=== PATIENT | male | born 1945 | race Caucasian/White ===

== ENCOUNTER 2020-01-31 04:15 | Inpatient (IN) | payer MEDICARE, OTHER ==
[~2020-01-31] VITALS: Ht 180.3 cm; Wt 140.2 kg
[2020-01-31] VITALS (11 sets, daily range): BP systolic 100–145; BP diastolic 53–76
[~2020-01-31 04:15] MED LIST: ACETAMINOPHEN-1 EAC1 PO; ACETAMINOPHEN325 M1 PO; ACYCLOVIR 400400 M1 PO; ADVAIR 500-501 EACH INH; AF CAPSICUM 0.060 GM TP; ALBUTEROL INH INH; ALBUTEROL PO; ARTIFICIAL TEA1 EACH INTRAOCULR; ATIVAN1 MG PO; ATIVAN2 MG PO; ATROVENT30 ML INH; AVELOX 400 MG400 MG PO; B-COMPLEX-VITA1 EACH PO; BENADRYL25 MG PO; BENZONATATE100 MG PO; CLARITIN10 M2 PO; CLOTRIMAZOLE 1%30 M1 TOP; COZAAR100 MG PO; CYCLOBENZAPRINE; DEPO-TESTO100 MG/1 M IM; DIABETA; EPIPEN 2-P0.3 MG/0.3 SUBQ; EYE ITCH RELIEF5 ML OP; FISH OIL 1,001000 MG PO; FLEXERIL PO; FLONASE 0.05%50 MCG INH; FLUZONE 2045 MCG/011; GLUCOPHAGE1000 MG; GLUCOPHAGE1000 MG PO; GLYBURIDE 5 MG T5 M1 PO; HYDROCODON-ACE1 EACH PO; IBUPROFEN 800800 M1; INSULIN; KEFLEX500 M1 PO; LANTUS SUBQ; LEVAQUIN 500 M500 M2 PO; LEVAQUIN 500 M500 M3 PO; LIDODERM TD; LOPID600 MG PO; LOVASTAT40 PO; MEDROL DOSPAK21 TAB PO; MEDROLDOSEPACK PO; METHOCARBAMOL500 M1 PO; METOCLOPRAMIDE10 MG PO; METRONIDAZOLE45 G1 TOP; NEURONTIN 300300 M1 PO; NIASPAN750 MG PO; NOVOLOG100 UNIT/1 SUBQ; OMEPRAZOLE20 M2 PO; PEPCID AC20 M1 PO; PLAVIX 75 MG TA75 MG PO; PNEUMOVAX25 MCG/0.5; PRAVACHOL40 MG PO; PREDNISONE 10 M10 M1 PO; PROAIR HFA8.5 GM INH; RANITIDINE; RANITIDINE 150150 MG PO; ROBITUSSIN100 MG/5 M; SEE INSTRUCTIONS; SELENIUM SULFIDE TOP; SELSUN BLUE 1%118 ML; SEROQUEL 100 M100 M1 PO; SERTRALINE HCL100 MG PO; SINGULAIR 10 MG10 M1 PO; SYMBICORT; Symbicort INH; TESSALON PERLE100 MG PO; TRAZODONE 150150 M1 PO; ULTRAM 50MG TAB50 MG PO; VITAMIN D1000 UNI1 PO; VITAMIN D1000 UNI2 PO; ZANTAC 150MG T150 MG PO
[2020-01-31 04:53] LABS: HEMATOCRIT 35.1 % (42.0-52.0); MCH 28.7 pg (26.0-34.0); MCHC 34.1 g/dL (28.0-37.0); MPV 8.5 fl. (7.2-11.1); NUCLEATED RBCS 0 /100WBC; PLATELET COUNT* 256 thou/uL (150-400); RBC 4.18 mil/uL (4.50-6.00); RDW-CV 15.5 % (10.5-14.5); WBC 13.1 thou/uL (4.0-11.0)
[2020-01-31 05:04] LABS: APTT 22.6 Seconds (25.0-31.3); INR 1.1; PROTIME 11.7 Seconds (9.20-11.50)
--- NOTE | 2020-01-31 05:05 | NUR ---
PT DOES NOT KNOW WHAT MEDICATIONS HE TAKES ON A DAILY BASIS. I ATTEMPTED TO CALL BECAUSE PT STATES THAT SHE KNOWS WHAT MEDICATIONS HE TAKES. 'S PHONE STATES THAT SHE IS NOT ACCEPTING CALLS AT THIS TIME. : ISAIAS NARANJO [phone]
[2020-01-31 05:18] LABS: BE 1.3 mmol/L (-2 to +3); PCO2 33.5 mmHg (35.0-45.0); PO2 98.2 mmHg (75.0-100.0); pH 7.479 (7.340-7.450)
[2020-01-31 05:27] LABS: NT-PRO BRAIN NAT PEPTIDE 554 pg/mL (<300); TROPONIN-I LEVEL <0.06 ng/mL (<0.06)
[2020-01-31 06:03] LABS: ABSOLUTE LYMPHOCYTES 1.8 thou/uL (0.8-5.3); ABSOLUTE MONOCYTES 0.5 thou/uL (0.0-1.2); ABSOLUTE NEUTROPHILS 10.7 thou/uL (1.6-8.1); ANISOCYTOSIS 1+; MYELOCYTES 5 %; PLATELET ESTIMATE ADEQUATE; POIKILOCYTOSIS 1+
--- NOTE | 2020-01-31 13:39 | EKG ---
[place] [address] ELECTROCARDIOGRAM REPORT Name: STEPHANIE NARANJO Room: [address] ADM IN .R.#: [id number] Admission: 01/31/20 Attend Phys: Barry Napier, Discharge: Date of : 47 Date of Service: 01/31/20 0418 Report #: [id number] THIS REPORT FOR: //name// [facility] ED Test Date: 2020-01-31 Test Time: 04:18:15 Pat Name: STEPHANIE NARANJO Department: Room: [address] Gender: M Lamination Technician: JESSICA : 1945 Requested By: Barry Napier Order Number: [id number] Barber MD: Jason Mora Measurements Intervals [place] Rate: 119 P: 37 OR: 137 QRS: 54 QRSD: 82 T: QT: 404 QTc: 569 Interpretive Statements Sinus tachycardia Probable left atrial enlargement Nonspecific T abnrm, anterolateral leads Prolonged QT interval Baseline wander in lead(s) V1,V3,V4,V6 Compared to ECG 09/07/2013 15:40:00 Prolonged QT interval now present Sinus rhythm no longer present Electronically Signed On 01-31-2020 13:38:47 CDT by Jason Mora [email or web address] <ELECTRONICALLY SIGNED> By: Jason Mora MD, [facility] 01/31/20 1338 0418 Jason Mora MD, [facility] /EPI
--- NOTE | 2020-01-31 18:02 | NUR ---
pt remains on nonrebreather at 50% or 6L tolerating well. pt is insistant on eating although is an asipration risk do o soa and having pneumonia x1 week ago no fevers or shivering
--- NOTE | 2020-01-31 22:00 | NUR ---
PATIENT INCREASINGLY ANXIOUS. TAKES CPAP OFF, LOOKS AT MONITOR AND GETS MORE ANXIOUS OF 02. NOW PLACED ON NON REBREATHER. PROVIDER NOTIFIED, ORDERS RECEIVED. WILL CONTINUE MONITORING.
[2020-01-31 22:55] LABS: BE -0.7 mmol/L (-2 to +3); PCO2 33.6 mmHg (35.0-45.0); pH 7.447 (7.340-7.450)
[2020-01-31 22:57] LABS: PO2 252.4 mmHg (75.0-100.0)
[2020-02-01] VITALS (65 sets, daily range): BP systolic 72–160; BP diastolic 35–138
[2020-02-01 04:43] LABS: INR 1.2
[2020-02-01 05:08] LABS: pH 7.431 (7.340-7.450)
[2020-02-01 05:09] LABS: BE 0.1 mmol/L (-2 to +3); PO2 75.3 mmHg (75.0-100.0)
[2020-02-01 05:10] LABS: ALBUMIN 2.5 g/dL (3.4-5.0); CALCIUM 8.4 mg/dL (8.5-10.1); POTASSIUM 3.9 mmol/L (3.5-5.1); TOTAL BILIRUBIN 0.3 mg/dL (<0.1-1.0); TOTAL PROTEIN 6.8 g/dL (6.4-8.2)
[2020-02-01 05:29] LABS: TROPONIN-I LEVEL 4.37 ng/mL (<0.06)
--- NOTE | 2020-02-01 06:52 | NUR ---
PATIENT'S WORK OF BREATHING INCREASING THROUGH THE NIGHT. BREATHING 40s-50s ON BIPAP AND PRECEDEX GTT, AND SLEEPING. PT INTUBATED AROUND 0630 THIS AM PER PULMONARY. TEMP MAX 102.3F. PT INCREASINGLY CONFUSED THE NIGHT WENT BY. REMAINS OF PRECEDEX GTT AT 1MCG/KG/HR. PT IN RESTRAINTS. UPDATED ON STATUS.
--- NOTE | 2020-02-01 11:00 | NUR ---
CENTRAL LINE PLACED, RT IJ TRIPLE LUMEN AT THE BEDSIDE BY DR BAL. OG INSERTED AND SECURED AT 65CMS AT THE LIP. PLACEMENTS CONFIRMED BY XRAY.
--- NOTE | 2020-02-01 18:34 | NUR ---
VENT SUPPORT CONTD, SETTINGS UNCHANGED. SEDATED WITH PRECEDEX AND PROPOFOL. PRESSOR SUPPORT WITH LEVOPHED, TITRATED DOWN TO 3 MCG/MIN. LR AT 50 MLS/HR. LOW GRADE FEVER PRESENT, FAN APPLIED. TUBE FEEDINGS STARTED WITH GLUCERNA 1.2, CURRENTLY AT 20 MLS/HR, WATER BOLUS 200 MLS Q6H. Q2 TURNS AND ORAL CARE GIVEN. UPDATED OVER THE PHONE.
[2020-02-02] VITALS (51 sets, daily range): BP systolic 93–131; BP diastolic 46–64
[2020-02-02 04:47] LABS: BE 2.2 mmol/L (-2 to +3); PCO2 39.8 mmHg (35.0-45.0); PO2 88.3 mmHg (75.0-100.0); pH 7.441 (7.340-7.450)
[2020-02-02 05:05] LABS: ABSOLUTE MONOCYTES 0.4 thou/uL (0.0-1.2); ABSOLUTE NEUTROPHILS 9.4 thou/uL (1.6-8.1); BASOPHILS 0.2 %; EOSINOPHILS 0.2 %; HEMATOCRIT 33.2 % (42.0-52.0); HEMOGLOBIN 11.3 gm/dL (14.0-18.0); LYMPHOCYTES 9.6 %; MCH 28.8 pg (26.0-34.0); MCHC 34.1 g/dL (28.0-37.0); MCV 84.5 fL (80.0-100.0); MPV 8.6 fl. (7.2-11.1); NUCLEATED RBCS 0 /100WBC; PLATELET COUNT* 198 thou/uL (150-400); RBC 3.94 mil/uL (4.50-6.00); RDW-CV 15.7 % (10.5-14.5)
[2020-02-02 05:16] LABS: ANION GAP 9 mmol/L (7-16); BUN 39 mg/dL (7-18); CALCIUM 7.7 mg/dL (8.5-10.1); CHLORIDE 102 mmol/L (98-107); CHOLESTEROL 109 mg/dL (<200); CO2 28 mmol/L (21-32); CREATININE 1.9 mg/dL (0.6-1.3); GLUCOSE 253 mg/dL (70-99); HDL CHOLESTEROL 20 mg/dL (>40); LDL CHOLESTEROL 57 mg/dL (<100); POTASSIUM 4.1 mmol/L (3.5-5.1); SODIUM 139 mmol/L (136-145); TC:HDL 5.5 Ratio (Not establshd); TRIGLYCERIDE 160 mg/dL (<150); VLDL 32 mg/dL (<40)
[2020-02-02 05:18] LABS: ALBUMIN 2.1 g/dL (3.4-5.0); CALCIUM 7.8 mg/dL (8.5-10.1); CREATININE 1.9 mg/dL (0.6-1.3); POTASSIUM 4.1 mmol/L (3.5-5.1); TOTAL BILIRUBIN 0.4 mg/dL (<0.1-1.0)
[2020-02-02 05:23] LABS: SERUM ASSESSMENT Clear
[2020-02-02 05:24] LABS: TROPONIN-I LEVEL 0.86 ng/mL (<0.06)
--- NOTE | 2020-02-02 07:46 | NUR ---
ASSUMED PATIENT CARE AT 1900. ASSESSMENTS COMPLETED CHARTED. CARDIAC MONITORING IN PLACE. FALL PRECAUTIONS IN PLACE FOR PATIENT SAFETY. BED LOCKED AND IN LOWEST POSITION. Q2 TURNS FOR COMFORT AND SKIN INTEGRITY.
--- NOTE | 2020-02-02 08:27 | CON ---
[address] [address] CONSULTATION Name: STEPHANIE NARANJO Room: [address] IN .R.#: [id number] Admission: 01/31/20 Attend Phys: Barry Napier MD Discharge: Date of : 47 Report #: [id number] THIS REPORT FOR: //name// cc: James Estrada MD, Anthony MD ~ THIS REPORT FOR: //name// CC: Barry Estrada DATE OF SERVICE: 02/01/2020 INFECTIOUS DISEASE CONSULTATION ATTENDING PHYSICIAN: Mike Dugan DO REASON FOR EVALUATION: Pneumonitis, positive COVID testing. HISTORY OF PRESENT ILLNESS: Chart reviewed, the patient examined. This is a 74-year-old gentleman with known history of COPD, who was hospitalized in other facility up until . He was diagnosed heavily with pneumonia. It is notable that he had a negative COVID testing there. He woke up with onset of rigors. Temperature was noted to be 103, progressive dyspnea. He was placed on BiPAP en route with mixed results, subsequently developed with a nonrebreather. He ultimately required emergent intubation. He is now on mechanical ventilatory support. A repeat COVID testing was positive. He is requiring some pressor support due to hemodynamic instability as well. He continues to have low-grade temperature elevation. ALLERGIES: MEPERIDINE, NONSTEROIDALS, PENICILLINS, AMINOGLYCOSIDES, PEANUTS, HYDROCODONE, ASPIRIN. CURRENT MEDICATIONS: Include montelukast, losartan, sertraline, norepinephrine, methylprednisolone, trazodone, dexmedetomidine, albuterol, tramadol, quetiapine, atorvastatin, gemfibrozil, gabapentin, insulin, budesonide, metformin, famotidine. PAST MEDICAL HISTORY: As described above, COPD, history of gastroparesis, hypertension, peripheral neuropathy, arthritis, PTSD, history of oral tumor, obstructive sleep apnea, diabetes mellitus type 2. SOCIAL HISTORY: Nonsmoker, no ethanol, no illicit drug use. FAMILY HISTORY: Noncontributory. REVIEW OF SYSTEMS: [place] [address] CONSULTATION Name: STEPHANIE NARANJO Room: [address]#: [id number] Admission: 01/31/20 Attend Phys: Barry Napier MD Discharge: Date of : 47 Report #: [id number] PHYSICAL EXAMINATION: GENERAL: He is supine. He is maintained on mechanical ventilatory support via an endotracheal tube. He is sedated, obese, appears to be reasonably well nourished. VITAL SIGNS: Temperature 100, pulse 98, respirations 29, blood pressure 120/68. SKIN: Warm, dry, no rashes. HEENT: Neck is supple. LUNGS: Few scattered coarse breath sounds. HEART: Regular. Borderline tachycardic. I do not appreciate murmur. ABDOMEN: Obese. There are no overt peritoneal signs. I do not believe there is significant tenderness. GENITOURINARY AND RECTAL: Deferred. LABORATORY DATA: Chest x-ray: Bilateral diffuse pulmonary opacities compatible with diffuse pneumonitis. A coronavirus was again confirmed positive. Ferritin elevated at 403. LDH 283. CPK 151. Troponin 4.37. Electrolytes: Sodium 141, potassium 3.9, chloride 104, bicarbonate is 28, anion gap of 9, BUN and creatinine 32 and 2.0, glucose of 68. AST of 22, ALT of 28, total protein 68 and albumin of 2.5. Estimated GFR of 33. ABG: A pH 7.431, pCO2 of 37, pO2 of 75.3, FiO2 of 45%. CBC on admission, white count of 13.1, H and H 12.0 35.1, platelets of 256. Today, a total lymphocyte count of 1800. Lactic acid 1.6. ASSESSMENT AND PLAN: Bilateral pneumonitis. The patient tests positive for COVID. We will talk to the pharmacy, initiate therapy with remdesivir. I will be worried about this sort of approach ____ clinical course may have a secondary complication like bacterial pneumonitis. We will start empiric antimicrobial therapy covered with likely be nosocomial pathogens. He is critically ill at this point. We will discuss with Dr. Dugan ____ monitoring. Wean as allowed. <ELECTRONICALLY SIGNED> By: Ariel Phoenix MD 02/02/20 0827 0916 [id number] Phoenix MD /nt
--- NOTE | 2020-02-02 09:53 | NUR ---
ROUND ON PT WITH DR ALEMAN VIA [facility].
--- NOTE | 2020-02-02 13:45 | CON ---
[address] [address] CONSULTATION Name: STEPHANIE NARANJO Room: [address] IN .R.#: [id number] Admission: 01/31/20 Attend Phys: Barry Napier MD Discharge: Date of : 47 Report #: [id number] THIS REPORT FOR: //name// cc: James Estrada MD, Anthony MD ~ THIS REPORT FOR: //name// CC: Barry Estrada DATE OF SERVICE: 02/01/2020 CARDIOLOGY CONSULTATION HISTORY OF PRESENT ILLNESS: The patient is a 74-year-old white male whom I was asked to see in hospital today because of shortness of breath. The patient is currently intubated. There are no family members available. The patient apparently was brought to the hospital yesterday morning with shortness of breath. He apparently was just discharged from [facility] 2 days ago after being treated for pneumonia. The patient was on BiPAP. He eventually had to be intubated. He was noted to be febrile. His simms test was positive. He was noted to have elevated troponin. I have asked to see him for further evaluation and treatment. PAST MEDICAL AND SURGICAL HISTORY: Significant for shoulder surgery. He has a TENS unit for chronic back pain. He has had right knee replacement. MEDICATIONS: From [facility] included Symbicort inhaler, Neurontin, Lopid, lovastatin, niacin, Seroquel, insulin, tramadol, trazodone, losartan, metformin, insulin. ALLERGIES: HE HAS AND ALLERGY TO AMINOGLYCOSIDES, ASPIRIN. SOCIAL HISTORY: He has a previous history of tobacco use. REVIEW OF SYSTEMS: There is no history of stroke, liver disease, kidney disease, cancer, chronic skin condition. PHYSICAL EXAMINATION: GENERAL: Revealed a morbidly obese elderly male, lying in bed. He was on a ventilator. He was sedated. VITAL SIGNS: He had a blood pressure of 100/60, pulse is 90, he is on Levophed infusion, temperature is 100. HEENT: Anicteric. Mucous membranes moist. NECK: Veins are difficult to assess due to obesity. CHEST: [place] [address] CONSULTATION Name: STEPHANIE NARANJO Room: [address]#: [id number] Admission: 01/31/20 Attend Phys: Barry Napier MD Discharge: Date of : 47 Report #: [id number] CARDIAC: Regular rate and rhythm. ABDOMEN: Obese. EXTREMITIES: Had trace edema. SKIN: Cool and dry. NEUROLOGIC: Nonfocal. DIAGNOSTIC WORKUP: So far; ECG shows a sinus rhythm, nonspecific T-wave changes. His workup in the Emergency Room yesterday; chest x-ray showed normal heart size, mild pulmonary edema. LABORATORY DATA: Sodium 141, BUN 32, creatinine 2.0, magnesium is only 1.6. Troponins are elevated at 4.37. BNP 8748. His white blood cell count is 13.1, hematocrit is 35.1. IMPRESSION AND RECOMMENDATIONS: 1. Acute respiratory distress. Possible pulmonary edema. Possible pneumonia from coronavirus. The patient is currently intubated. 2. Pulmonary edema. I would give Lasix. The patient recently was admitted to [facility]. I would attempt to obtain those records. 3. Diabetes. 4. Hypertension. The patient is on an ARB. 5. Chronic kidney disease. 6. Morbid obesity. 7. Hyperlipidemia. The patient is on a statin drug. <ELECTRONICALLY SIGNED> By: Jason Mora MD, FACC 02/02/20 1345 1006 [id number] Mora MD, FACC /nt
--- NOTE | 2020-02-02 18:14 | NUR ---
PT CONTINUES ON VENT AND PEEP INCREASED TO 8. WAS ABLE TO WEAN PT OFF OF LEVOPHED. PT DIURESED 4L CLEAR YELLOW URINE. WILL CONTINUE TO ASSESS.
[2020-02-02 18:21] LABS: ALBUMIN 2.1 g/dL (3.4-5.0); CREATININE 1.9 mg/dL (0.6-1.3); POTASSIUM 4.3 mmol/L (3.5-5.1); TOTAL BILIRUBIN 0.3 mg/dL (<0.1-1.0); TOTAL PROTEIN 6.2 g/dL (6.4-8.2)
[2020-02-03] VITALS (51 sets, daily range): BP systolic 92–131; BP diastolic 50–66
[2020-02-03 04:27] LABS: BE 3.2 mmol/L (-2 to +3); PCO2 40.9 mmHg (35.0-45.0); pH 7.446 (7.340-7.450)
[2020-02-03 05:17] LABS: ABSOLUTE LYMPHOCYTES 0.9 thou/uL (0.8-5.3); ABSOLUTE MONOCYTES 0.2 thou/uL (0.0-1.2); ABSOLUTE NEUTROPHILS 4.7 thou/uL (1.6-8.1); BASOPHILS 0.4 %; EOSINOPHILS 0.4 %; HEMATOCRIT 33.4 % (42.0-52.0); HEMOGLOBIN 11.3 gm/dL (14.0-18.0); LYMPHOCYTES 15.3 %; MCH 28.5 pg (26.0-34.0); MCHC 33.7 g/dL (28.0-37.0); MCV 84.6 fL (80.0-100.0); MONOCYTES 3.7 %; MPV 8.6 fl. (7.2-11.1); NUCLEATED RBCS 0 /100WBC; PLATELET COUNT* 175 thou/uL (150-400); POLYS 80.2 %; RBC 3.95 mil/uL (4.50-6.00); RDW-CV 16.2 % (10.5-14.5); WBC 5.9 thou/uL (4.0-11.0)
[2020-02-03 05:52] LABS: INR 1.1; PROTIME 11.1 Seconds (9.20-11.50)
[2020-02-03 06:01] LABS: TROPONIN-I LEVEL 0.4 ng/mL (<0.06)
[2020-02-03 06:05] LABS: ALBUMIN 2.1 g/dL (3.4-5.0); CALCIUM 8.1 mg/dL (8.5-10.1); CREATININE 1.6 mg/dL (0.6-1.3); POTASSIUM 4.1 mmol/L (3.5-5.1); TOTAL BILIRUBIN 0.3 mg/dL (<0.1-1.0); TOTAL PROTEIN 6.2 g/dL (6.4-8.2)
--- NOTE | 2020-02-03 14:49 | NUR ---
ICU rounds: Pt on vent, FIO@ 100%. Covid positive. ID and pulm following. Pt recently dc from [place] on 01/28, admitted here on 01/30. Pt was covid negative as of 01/28. CM spoke with via phone. states that she was just tested for covid and is under quarantine, awaiting results. Pt is normally independent, assist with some ADLs. Pt has a walker but its too big to use in the home, so Pt does not use any DME in the home, but uses a cane or walking stick when outside. Pt wears home o2 at [facility] at 3L. Pt has a trilogy and Inogen, [facility]. Hx of [facility]. Hx of skilled at [facility], [facility] and [facility]. states that if Pt needs skilled at dc, her preference would be [facility], TERE informed that d/t Pt's positive covid results, we may have a more difficult time placing Pt for skilled if needed. CM following.
--- NOTE | 2020-02-03 15:36 | EKG ---
[place] [address] ELECTROCARDIOGRAM REPORT Name: STEPHANIE NARANJO Room: [address] IN M.R.#: [id number] Admission: 01/31/20 Attend Phys: aBrry Napier, Discharge: Date of : 47 Date of Service: 02/02/20 0629 Report #: [id number] THIS REPORT FOR: //name// [facility] Test Date: 2020-02-02 Test Time: 06:29:30 Pat Name: STEPHANIE NARANJO Department: Room: [address] Gender: M Residential Living Assistant: MS : 1945 Requested By: Jason Mora Order Number: [id number] Barber MD: Jj Sams Measurements Intervals [place] Rate: 62 P: 68 DE: 187 QRS: 70 QRSD: 101 T: 94 QT: 495 QTc: 503 Interpretive Statements Sinus rhythm Low voltage, precordial leads Nonspecific T abnrm, anterolateral leads Prolonged QT interval Compared to ECG 01/31/2020 04:18:15 Low QRS voltage now present Sinus tachycardia no longer present Electronically Signed On 02-03-2020 15:36:05 CDT by Jj Sams [email or web address] <ELECTRONICALLY SIGNED> By: Jj Sams MD, [facility] 02/03/20 1536 0629 0629 Jj Sams MD, [facility] /EPI
--- NOTE | 2020-02-03 15:42 | EKG ---
[place] [address] ELECTROCARDIOGRAM REPORT Name: STEPHANIE NARANJO Room: [address] IN M.R.#: [id number] Admission: 01/31/20 Attend Phys: Barry Napier, Discharge: Date of : 47 Date of Service: 02/03/20 1001 Report #: [id number] THIS REPORT FOR: //name// [facility] Test Date: 2020-02-03 Test Time: 10:01:29 Pat Name: STEPHANIE NARANJO Department: Room: [address] Gender: M Body Shop Technician: [id number] : 1945 Requested By: Jason Mora Order Number: [id number] Barber MD: Jj Sams Measurements Intervals [place] Rate: 66 P: 49 [place]: 176 QRS: 31 QRSD: 97 T: 84 QT: 517 QTc: 542 Interpretive Statements Sinus rhythm Low voltage, precordial leads Nonspecific T abnrm, anterolateral leads Prolonged QT interval Compared to ECG 01/31/2020 04:18:15 Low QRS voltage now present Sinus tachycardia no longer present Electronically Signed On 02-03-2020 15:41:14 CDT by Jj Sams [email or web address] <ELECTRONICALLY SIGNED> By: Jj Sams MD, FAC 02/03/20 1541 1001 1001 Jj Sams MD, [facility] /EPI
[2020-02-03 16:27] LABS: CALCIUM 8.4 mg/dL (8.5-10.1); CREATININE 1.8 mg/dL (0.6-1.3); POTASSIUM 4.6 mmol/L (3.5-5.1)
--- NOTE | 2020-02-03 19:55 | NUR ---
VENT SETTINGS CHANGED PER DR DELACRUZ, SEDATION CHANGED TO FENTANYL AND VERSED FOR VENT EFFICACY. TOLERTING GLUCERNA AT 40 MLS/HR. INSULIN DRIP STARTED PER PROTOCOL.
[2020-02-04] VITALS (29 sets, daily range): BP systolic 99–175; BP diastolic 41–78
[2020-02-04 05:19] LABS: HEMATOCRIT 35.3 % (42.0-52.0); HEMOGLOBIN 11.7 gm/dL (14.0-18.0); MCH 28.3 pg (26.0-34.0); MCHC 33.3 g/dL (28.0-37.0); MCV 85.1 fL (80.0-100.0); MPV 8.6 fl. (7.2-11.1); RBC 4.15 mil/uL (4.50-6.00); RDW-CV 16.2 % (10.5-14.5); WBC 4.7 thou/uL (4.0-11.0)
[2020-02-04 05:40] LABS: PREALBUMIN 23.7 mg/dL (18.0-35.7)
[2020-02-04 05:46] LABS: ALBUMIN 2.2 g/dL (3.4-5.0); CALCIUM 8.4 mg/dL (8.5-10.1); CREATININE 1.7 mg/dL (0.6-1.3); MAGNESIUM 2.1 mg/dL (1.8-2.4); POTASSIUM 4.1 mmol/L (3.5-5.1); TOTAL BILIRUBIN 0.2 mg/dL (<0.1-1.0); TOTAL PROTEIN 6.4 g/dL (6.4-8.2)
[2020-02-04 05:52] LABS: HEMATOCRIT 35.3 % (42.0-52.0); HEMOGLOBIN 11.8 gm/dL (14.0-18.0); MCH 28.4 pg (26.0-34.0); MCHC 33.4 g/dL (28.0-37.0); MPV 8.8 fl. (7.2-11.1); NUCLEATED RBCS 0 /100WBC; PLATELET COUNT* 166 thou/uL (150-400); RBC 4.15 mil/uL (4.50-6.00); RDW-CV 16.1 % (10.5-14.5); WBC 4.7 thou/uL (4.0-11.0)
[2020-02-04 06:33] LABS: ABSOLUTE LYMPHOCYTES 0.1 thou/uL (0.8-5.3); ABSOLUTE MONOCYTES 0.3 thou/uL (0.0-1.2); ABSOLUTE NEUTROPHILS 4.3 thou/uL (1.6-8.1); ANISOCYTOSIS 1+; PLATELET ESTIMATE ADEQUATE; POIKILOCYTOSIS 1+
--- NOTE | 2020-02-04 06:47 | NUR ---
ASSUMED CARE AT 1900H, ON VENT AT 100% PEEP OF 15 WITH SEDATION OF VERSED 10MG/HR AND FENTANYL 150MICS/HR AND TOLERATED. SEEN ON BED WELL SEDATED AND SOMETIMES OPENING EYES VERBAL AND LOCALIZE PAIN. ON GLUCERNA CONTINOUS FEEDING AND TOLERATED. NO DISTRESS NOTED. INSULIN DRIP AND TITRATED, NOW ON 17.5IU/HR AND LATEST BS 96. ART LINE INSERTED LAST NIGHT NO COMPLICATION. CONTINUE MONITORING AND TOWARD GOALS. UPDATE GIVEN TO .
[2020-02-04 08:38] LABS: BE 2.7 mmol/L (-2 to +3); PCO2 45.7 mmHg (35.0-45.0); PO2 95.5 mmHg (75.0-100.0); pH 7.404 (7.340-7.450)
--- NOTE | 2020-02-04 12:20 | NUR ---
ICU rounds: Covid postive. On vent. 100% o2. Not doing great. Working on getting a Rotoprone bed.
[2020-02-04 16:07] LABS: BE 1.1 mmol/L (-2 to +3); pH 7.354 (7.340-7.450)
[2020-02-04 16:08] LABS: PCO2 50.2 mmHg (35.0-45.0); PO2 251.5 mmHg (75.0-100.0)
[2020-02-04 16:41] LABS: CALCIUM 8.2 mg/dL (8.5-10.1); CREATININE 1.9 mg/dL (0.6-1.3)
[2020-02-04 16:42] LABS: POTASSIUM 5.3 mmol/L (3.5-5.1)
--- NOTE | 2020-02-04 19:38 | NUR ---
ASSESSMENT CHARTED. BP ELEVATED WHEN LESS SEDATED. PROPOFOL ADDED TO MAINTAIN RASS -3. INSULIN DRIP STOPPED THIS MORNING BS DROPPED TO 50'S. D50 PUSH GIVEN X1. AFTERNOON LABS SHOWED ELEVATED BLOOD GLUCOSE LEVELS. HIMS NOTIFIED AND INSULIN DRIP RESTARTED. MAMMOGRAPHY SUPERVISOR NOTIFIED REGARDING FINDING A ROTOPRONE BED. WILL CONTINUE TO FOLLOW UP WITH THIS IN THE MORNING SHE WAS UNABLE TO FIND ONE. ABG RESULTS GIVEN TO PULM WITH TITRATION ORDERS FOR FIO2. Q2H TURNS, PATIENT DOES NOT APPEAR TO BE IN ANY PAIN. NO OTHER EVENTS DURING THIS SHIFT.
[2020-02-05] VITALS (25 sets, daily range): BP systolic 102–166; BP diastolic 45–76
--- NOTE | 2020-02-05 05:55 | NUR ---
ASSUMED CARE AT 1900, ON VENT AT 80% AND WITH FENTANYL,VERSED AND PROPOFOL SEDATION. SEEN WELL SEDATED. FIO2 TITRATED AND DOWN TO 60%. PT SOMETIMES TACHYPNIC, SEDATION TITRATED. NO DISTRESS. UPDATE GIVEN TO . STILL ON INSULIN DRIP AT 26.5IU/HR. CONTINUE MONITORING AND TOWARD GOALS.
[2020-02-05 06:04] LABS: ABSOLUTE LYMPHOCYTES 0.4 thou/uL (0.8-5.3); ABSOLUTE MONOCYTES 0.3 thou/uL (0.0-1.2); ABSOLUTE NEUTROPHILS 6.5 thou/uL (1.6-8.1); BASOPHILS 0.2 %; HEMATOCRIT 33.2 % (42.0-52.0); LYMPHOCYTES 6.2 %; MCH 28.3 pg (26.0-34.0); MCHC 33.2 g/dL (28.0-37.0); MCV 85.3 fL (80.0-100.0); MONOCYTES 3.6 %; MPV 9.2 fl. (7.2-11.1); NUCLEATED RBCS 0 /100WBC; PLATELET COUNT* 161 thou/uL (150-400); RBC 3.89 mil/uL (4.50-6.00); RDW-CV 15.5 % (10.5-14.5); WBC 7.2 thou/uL (4.0-11.0)
[2020-02-05 06:17] LABS: ALBUMIN 2.2 g/dL (3.4-5.0); MAGNESIUM 2.2 mg/dL (1.8-2.4); POTASSIUM 4.6 mmol/L (3.5-5.1); TOTAL BILIRUBIN 0.2 mg/dL (<0.1-1.0); TOTAL PROTEIN 6.1 g/dL (6.4-8.2)
[2020-02-05 08:41] LABS: BE 0.4 mmol/L (-2 to +3); pH 7.338 (7.340-7.450)
[2020-02-05 08:44] LABS: PCO2 51.2 mmHg (35.0-45.0)
--- NOTE | 2020-02-05 15:07 | NUR ---
ICU rounds: Continue on vent, sedated. Covid positive. Still considering need for prone bed, Pt does not need it yet.
[2020-02-05 16:16] LABS: BE 2.4 mmol/L (-2 to +3); PCO2 48.8 mmHg (35.0-45.0); PO2 71.9 mmHg (75.0-100.0)
[2020-02-05 17:33] LABS: CALCIUM 8.2 mg/dL (8.5-10.1)
--- NOTE | 2020-02-05 18:00 | NUR ---
ASSESSMENT CHARTED. VSS THROUGHOUT SHIFT. Q2H TURNS. BATH GIVEN LATE IN THE AFTER. WOUND DISCOVERED ON COCCYX WHILE GIVING BATH, SEE DOCUMENTATION. PATIENT REMAINS ON INSULIN DRIP. STOPPED FOR A COUPLE HOURS TODAY FOR A BS IN THE 60'S. RESTARTED AND ONGOING TITRATION. NO OTHER EVENTS DURING THIS SHIFT.
[2020-02-06] VITALS (24 sets, daily range): BP systolic 112–169; BP diastolic 44–66
--- NOTE | 2020-02-06 05:22 | NUR ---
ASSUMED CARE AT 1910H, ON VENT AT 65% AND SEDATED WITH VERSED, FENTANYL AND PROPOFOL. SEEN ON BED WELL SADATED. PT SOMETIMES GIVING THE VENT HIGH TIDAL VOLUME, PROPOFOL TITRATED. STILL ON INSULIN DRIP. LATEST RATE AT 20IU/HR. NO DISTRESS NOTED. OG FEEDING DECREASE TO 40ML/HR, HIGHEST RESIDUAL WAS 250ML. CONTINUE MONITORING AND TOWARD GOALS.
[2020-02-06 06:49] LABS: ABSOLUTE LYMPHOCYTES 0.4 thou/uL (0.8-5.3); ABSOLUTE MONOCYTES 0.3 thou/uL (0.0-1.2); ABSOLUTE NEUTROPHILS 9.7 thou/uL (1.6-8.1); BASOPHILS 0.1 %; HEMATOCRIT 32.2 % (42.0-52.0); HEMOGLOBIN 10.7 gm/dL (14.0-18.0); LYMPHOCYTES 3.7 %; MCH 28.5 pg (26.0-34.0); MCHC 33.2 g/dL (28.0-37.0); MONOCYTES 2.6 %; MPV 9.4 fl. (7.2-11.1); NUCLEATED RBCS 0 /100WBC; PLATELET COUNT* 158 thou/uL (150-400); POLYS 93.6 %; RBC 3.74 mil/uL (4.50-6.00); RDW-CV 15.5 % (10.5-14.5); WBC 10.4 thou/uL (4.0-11.0)
[2020-02-06 07:11] LABS: CALCIUM 8.1 mg/dL (8.5-10.1); MAGNESIUM 2.3 mg/dL (1.8-2.4); PHOSPHORUS* 4.9 mg/dL (2.5-4.9); POTASSIUM 4.9 mmol/L (3.5-5.1)
[2020-02-06 07:12] LABS: PREALBUMIN 42.2 mg/dL (18.0-35.7)
[2020-02-06 08:01] LABS: BE -0.2 mmol/L (-2 to +3); PO2 122.7 mmHg (75.0-100.0); pH 7.354 (7.340-7.450)
--- NOTE | 2020-02-06 11:08 | 2DMMODE ---
[place] [address] 2 D/M-MODE ECHOCARDIOGRAM Name: STEPHANIE NARANJO Room: [address] IN .R.#: [id number] Admission: 01/31/20 Attend Phys: Barry Napier, Discharge: Date of : 47 Date of Service: 02/06/20 1108 Report #: [id number] THIS REPORT FOR: cc: James Estrada MD, Anthony MD Liston, Michael J. MD [facility] ~ APPROVED REPORT Study performed: 02/06/2020 09:12:46 EXAM: Comprehensive 2D, Doppler, and color-flow Echocardiogram Patient Location: In-Patient BSA: 2.61 HR: 75 bpm BP: 135/55 mmHg Other Information Study Quality: Fair Technically limited study due to body habitus, inability to position patient. Indications Dyspnea 2D Dimensions IVSd: 14.06 (7-11mm) LVOT Diam: 20.15 (18-24mm) LVDd: 47.57 mm PWd: 11.64 (7-11mm) Ascending Ao: 27.77 (22-36mm) LVDs: 28.54 (25-40mm) Aortic Root: 27.82 mm Tricuspid Valve RAP Estimate: 5.00 mmHg TR Peak Gr.: 10.25 mmHg RVSP: 15.25 mmHg PA Pressure: 15.25 mmHg Left Ventricle The left ventricle is normal size. There is normal LV segmental wall motion. Mild concentric left ventricular hypertrophy. The left ventricular systolic function is normal. LVEF is 60-65%. Aortic Valve The aortic valve is normal in structure. [place] [address] 2 D/M-MODE ECHOCARDIOGRAM Name: STEPHANIE NARANJO Room: [address]#: [id number] Admission: 01/31/20 Attend Phys: Barry Napier, Discharge: Date of : 47 Date of Service: 02/06/208 Report #: [id number] present. Mitral Valve The mitral valve is normal in structure. There is no mitral valve regurgitation noted. Tricuspid Valve The tricuspid valve is normal in structure. Trace tricuspid regurgitation. Great Vessels The aortic root is normal in size. IVC is normal in size and collapses >50% with inspiration. Pericardium There is no pericardial effusion. <Conclusion> The left ventricle is normal size. Mild concentric left ventricular hypertrophy. The left ventricular systolic function is normal. LVEF is 60-65%. <ELECTRONICALLY SIGNED> By: Maximiliano Duff MD, FACC 02/06/20 1108 07 1108 Maximiliano Duff MD, FACC /INF
--- NOTE | 2020-02-06 14:24 | NUR ---
ICU rounds: Pt requiring a lot of sedation, trying to keep him comfortable. On vent. Covid positive.
[2020-02-07] VITALS (41 sets, daily range): BP systolic 95–153; BP diastolic 32–66
[2020-02-07 05:53] LABS: ABSOLUTE LYMPHOCYTES 1.2 thou/uL (0.8-5.3); ABSOLUTE MONOCYTES 0.4 thou/uL (0.0-1.2); ABSOLUTE NEUTROPHILS 9.6 thou/uL (1.6-8.1); BASOPHILS 0.1 %; EOSINOPHILS 0.1 %; HEMATOCRIT 31.2 % (42.0-52.0); HEMOGLOBIN 10.3 gm/dL (14.0-18.0); LYMPHOCYTES 10.5 %; MCH 28.5 pg (26.0-34.0); MCHC 33.1 g/dL (28.0-37.0); MCV 85.9 fL (80.0-100.0); MONOCYTES 3.3 %; MPV 9.5 fl. (7.2-11.1); NUCLEATED RBCS 0 /100WBC; PLATELET COUNT* 166 thou/uL (150-400); RBC 3.63 mil/uL (4.50-6.00); RDW-CV 15.7 % (10.5-14.5); WBC 11.2 thou/uL (4.0-11.0)
[2020-02-07 06:13] LABS: ALBUMIN 2.3 g/dL (3.4-5.0); CALCIUM 8.2 mg/dL (8.5-10.1); CREATININE 1.5 mg/dL (0.6-1.3); MAGNESIUM 2.3 mg/dL (1.8-2.4); POTASSIUM 5.1 mmol/L (3.5-5.1); TOTAL BILIRUBIN 0.3 mg/dL (<0.1-1.0); TOTAL PROTEIN 5.8 g/dL (6.4-8.2)
--- NOTE | 2020-02-07 06:57 | NUR ---
ASSUMED PATIENT CARE AT 1900. ASSESSMENTS COMPLETED CHARTED. CARDIAC MONITORING IN PLACE. BED LOCKED AND IN LOWEST POSITION. FALL PRECAUTIONS IN PLACE. Q2 TURNS FOR COMFORT AND SKIN INTEGRITY.
[2020-02-07 08:47] LABS: PCO2 44.5 mmHg (35.0-45.0); PO2 63.8 mmHg (75.0-100.0); pH 7.416 (7.340-7.450)
--- NOTE | 2020-02-07 13:07 | NUR ---
Nutrition: INCREASE TF TO GOAL RATE OF 65mL/HR.
--- NOTE | 2020-02-07 14:55 | NUR ---
ICU rounds: Continue ICU status. Covid positive. Pulm following.
--- NOTE | 2020-02-07 15:38 | NUR ---
WOUND NURSE: PATIENT SEEN FOR WOUND ON RIGHT SACRUM MEASURING 1.0 X 3.0 CM. PRESENTS PURPLISH RED, NONBLANCHEABLE LESION. SKIN IS INTACT. PRESENTS A SUSPECTED DEEP TISSUE INJURY. ALSO HAS A 1.0 X 1.0 X 0.1 CM CIRCIFORM SHALLOW LESION WITH PARTIAL THICKNESS TISSUE LOSS ON COCCYX. RED NONGRANULATIONG TISSUE PRESENT IN THE WOUND AND MINIMAL AMOUNT OF SANGUINOUS DRAINAGE. PATIENT ON VENTILATOR AND IS NON TEACHEABLE. WOUNDS CLEANSED WITH SOAP AND WATER, RINSED, PATTED DRY. APPLIED SKIN PREP TO PERIWOUND. APPLIED BORDERED FOAM DRESSING TO WOUND. PLAN TO CHANGE DRESSING EVERY 3 DAYS AND PRN. RECOMMEND BARIATRIC LOW AIRLOSS MATTRESS IF OK WITH PULMONARY PHYSICIAN. STAFF NURSE CANDI AWARE AND CAN DISCUSS WITH LIQUOR MAKER.
[2020-02-08] VITALS (34 sets, daily range): BP systolic 90–191; BP diastolic 34–90
[2020-02-08 05:53] LABS: HEMATOCRIT 33.6 % (42.0-52.0); HEMOGLOBIN 11.3 gm/dL (14.0-18.0); MCH 28.8 pg (26.0-34.0); MCHC 33.7 g/dL (28.0-37.0); MCV 85.6 fL (80.0-100.0); MPV 9.2 fl. (7.2-11.1); NUCLEATED RBCS 0 /100WBC; PLATELET COUNT* 185 thou/uL (150-400); RBC 3.93 mil/uL (4.50-6.00); RDW-CV 15.6 % (10.5-14.5); WBC 7.8 thou/uL (4.0-11.0)
[2020-02-08 06:12] LABS: ALBUMIN 2.5 g/dL (3.4-5.0); CALCIUM 8.6 mg/dL (8.5-10.1); CREATININE 1.5 mg/dL (0.6-1.3); MAGNESIUM 2.3 mg/dL (1.8-2.4); POTASSIUM 4.5 mmol/L (3.5-5.1); TOTAL BILIRUBIN 0.4 mg/dL (<0.1-1.0); TOTAL PROTEIN 6.2 g/dL (6.4-8.2)
[2020-02-08 06:44] LABS: ABSOLUTE MONOCYTES 0.3 thou/uL (0.0-1.2); ABSOLUTE NEUTROPHILS 5.5 thou/uL (1.6-8.1); MICROCYTES 1+; PLATELET ESTIMATE ADEQUATE
--- NOTE | 2020-02-08 07:33 | NUR ---
ASSUMED PATIENT CARE AT 1900. ASSESSMENTS COMPLETED A CHARTED. CARDIAC MONITORING IN PLACE. TUBE FEEDS PUT ON HOLD DURING SHIFT DUE TO HIGH RESIDUAL FEEDING VOLUMES. BED LOCKED AND LOWEST POSITION.
[2020-02-08 08:26] LABS: BE 6.5 mmol/L (-2 to +3); PCO2 45.8 mmHg (35.0-45.0); PO2 68.6 mmHg (75.0-100.0); pH 7.453 (7.340-7.450)
[2020-02-09] VITALS (26 sets, daily range): BP systolic 70–117; BP diastolic 32–55
--- NOTE | 2020-02-09 08:21 | NUR ---
REMAINED SEDATED ON VENTILATOR. TF RESIDUAL 370ML AT 0000, RESIDUAL RETURNED VIA OG TUBE AND TF PLACED ON HOLD. TF RESIDUAL 350ML AT 0400, RESIDUAL DISCARDED AND TF REMAINS ON HOLD. PT HAS BEEN TURNED Q2HR THROUGHOUT THE SHIFT.
[2020-02-09 14:09] LABS: URINE BILIRUBIN NEGATIVE (Negative); URINE BLOOD 2+ (Negative); URINE CLARITY CLEAR; URINE COLOR YELLOW; URINE GLUCOSE-RANDOM NEGATIVE (Negative); URINE KETONES NEGATIVE (Negative); URINE LEUKOCYTES-REFLEX NEGATIVE (Negative); URINE NITRITE-REFLEX NEGATIVE (Negative); URINE PROTEIN NEGATIVE (Negative); URINE SPECIFIC GRAVITY 1.015 (1.005-1.030); URINE UROBILINOGEN 0.2 E.U./dl (0.2-1.0)
[2020-02-09 14:13] LABS: SQUAMOUS NONE SEEN /LPF (0-3); URINE RBC 0-2 Rare /HPF (0-2); URINE WBC-REFLEX None Seen /HPF (0-5)
[2020-02-09 14:14] LABS: BACTERIA-REFLEX 1-9 Few /HPF (None Seen)
[2020-02-09 14:15] LABS: CASTS None Seen /LPF (None Seen); CRYSTALS None Seen /LPF (None Seen)
--- NOTE | 2020-02-09 19:57 | NUR ---
ASSESSMENT CHARTED. BP HYPOTENSIVE. MD NOTIFIED AND IV BOLUS ORDERED. BP STILL REMAINED LOW WITH A MAP 50-60. LEVOPHED STARTED PER TITRATION ORDER. FIO2 ON THE VENT INCREASED TO 100%, SUCTIONING THICK WHITE/BLOOD TINGED SPUTUM. Q2H TURNS. PATIENT RESPONDING TO PAIN BUT OTHER STEWART RASS -3. D50W GIVEN X2 FOR BLOOD SUGARS IN THE 50'S. LAST BS 78.T-MAX 99.8. NO OTHER EVENTS DURING THIS SHIFT.
[2020-02-10] VITALS (34 sets, daily range): BP systolic 91–145; BP diastolic 39–80
[2020-02-10 05:35] LABS: HEMOGLOBIN 11.9 gm/dL (14.0-18.0); POLYS 85.9 %
[2020-02-10 05:36] LABS: ABSOLUTE BASOPHILS 0.1 thou/uL (0.0-0.2); ABSOLUTE EOSINOPHILS 0.1 thou/uL (0.0-0.7); ABSOLUTE LYMPHOCYTES 1.1 thou/uL (0.8-5.3); ABSOLUTE MONOCYTES 0.3 thou/uL (0.0-1.2); ABSOLUTE NEUTROPHILS 9.9 thou/uL (1.6-8.1); BASOPHILS 0.6 %; EOSINOPHILS 1.1 %; LYMPHOCYTES 9.9 %; MCH 28.6 pg (26.0-34.0); MCV 86.5 fL (80.0-100.0); MONOCYTES 2.5 %; NUCLEATED RBCS 0 /100WBC; PLATELET COUNT* 247 thou/uL (150-400); RBC 4.15 mil/uL (4.50-6.00); RDW-CV 16.4 % (10.5-14.5); WBC 11.6 thou/uL (4.0-11.0)
[2020-02-10 05:44] LABS: INR 1.1; PROTIME 11.4 Seconds (9.20-11.50)
[2020-02-10 05:48] LABS: ALBUMIN 2.3 g/dL (3.4-5.0); CALCIUM 8.4 mg/dL (8.5-10.1); CREATININE 1.6 mg/dL (0.6-1.3); POTASSIUM 4.3 mmol/L (3.5-5.1); TOTAL BILIRUBIN 0.8 mg/dL (<0.1-1.0); TOTAL PROTEIN 6.2 g/dL (6.4-8.2)
[2020-02-10 05:49] LABS: BE 2.5 mmol/L (-2 to +3); PCO2 42.4 mmHg (35.0-45.0); pH 7.426 (7.340-7.450)
--- NOTE | 2020-02-10 06:00 | NUR ---
PT. REMAINS SEDATED ON THE VENT. REMAINS ON LEVOPHED GTT. RESPONDS TO NOXIOUS STIMULI. REMAINS SINUS RHYTHM. ARTERIAL LINE REMAINS IN PLACE. PRECEDEX/FENT/VERSED GTT'S. WILL CONTINUE TO MONITOR.
--- NOTE | 2020-02-10 13:11 | NUR ---
ICU rounds: Pt remains on vent. Pt had 1 negative covid test, plan to take another test tomorrow. Febrile. Plan to change out lines. Tube feeds. [place]. No restraints but on sedation. Sepsis positive.
--- NOTE | 2020-02-10 15:02 | NUR ---
RIGHT CEPHALIC VESSEL ACCESSED FOR 5 VIETNAMESE TRIPLE LUMEN PICC. LINE PRE-TRIMMED TO 46CM AND ADVANCED TO THE ZERO SHAILA WITH NO RESISTANCE MET. UPPER ARM CIRCUMFERENCE ABOVE INSERTION SITE= 15 1/2". SHERLOCK MAGNET AND 3CG CONFIRMATION OF TIP TERMINATION AT THE CAVOATRIAL JUNCTION APPRECIATED. GUIDEWIRE REMOVED, LINE FLUSHED AND INSERTION SITE DRESSED. REPORT GIVEN TO KAMERON PRAJAPATI.
[2020-02-10 15:24] LABS: CALCIUM 8.4 mg/dL (8.5-10.1); CREATININE 1.6 mg/dL (0.6-1.3); MAGNESIUM 1.9 mg/dL (1.8-2.4); POTASSIUM 5.3 mmol/L (3.5-5.1)
--- NOTE | 2020-02-10 17:30 | NUR ---
PT REMAINS INTUBATED PER ORDERED SETTINGS.SEDATED ON PRECEDEX AND FENTANYL.PT HAS BEEN FEBRILE THROUGHOUT THE SHIFT WITH TYLENOL GIVEN. CENTRAL LINE D/C PER INFECTIOUS DISEASE DOCTOR-CATH TIP SENT FOR CULTURES.NEW PICC LINE PLACED IN RIGHT UPPER ARM.ENHANCED ISOLATION PRECAUTIONS MAINTAINED FOR COVID.TUBE FEEDS TOLERATED WITH LOW RESIDUALS.ART LINE IN PLACE AND PATENT.WILL CONTINUE TO MONITOR FOR DURATION OF SHIFT.
[2020-02-11] VITALS (36 sets, daily range): BP systolic 101–169; BP diastolic 39–75
[2020-02-11 05:22] LABS: ABSOLUTE BASOPHILS 0.1 thou/uL (0.0-0.2); ABSOLUTE LYMPHOCYTES 0.4 thou/uL (0.8-5.3); ABSOLUTE MONOCYTES 0.2 thou/uL (0.0-1.2); ABSOLUTE NEUTROPHILS 10.7 thou/uL (1.6-8.1); BASOPHILS 1.2 %; EOSINOPHILS 0.1 %; HEMOGLOBIN 11.5 gm/dL (14.0-18.0); LYMPHOCYTES 3.4 %; MCH 28.5 pg (26.0-34.0); MCHC 32.9 g/dL (28.0-37.0); MCV 86.7 fL (80.0-100.0); MONOCYTES 1.9 %; MPV 8.8 fl. (7.2-11.1); NUCLEATED RBCS 0 /100WBC; PLATELET COUNT* 200 thou/uL (150-400); POLYS 93.4 %; RBC 4.03 mil/uL (4.50-6.00); RDW-CV 16.8 % (10.5-14.5); WBC 11.4 thou/uL (4.0-11.0)
[2020-02-11 06:28] LABS: ALBUMIN 2.4 g/dL (3.4-5.0); CALCIUM 8.7 mg/dL (8.5-10.1); CREATININE 1.6 mg/dL (0.6-1.3); MAGNESIUM 1.9 mg/dL (1.8-2.4); PHOSPHORUS* 3.8 mg/dL (2.5-4.9); POTASSIUM 4.9 mmol/L (3.5-5.1); TOTAL BILIRUBIN 0.7 mg/dL (<0.1-1.0); TOTAL PROTEIN 6.5 g/dL (6.4-8.2)
--- NOTE | 2020-02-11 06:54 | NUR ---
PT. REMAINS SEDATED ON VENTILATOR. FIO2 DOWN TO 45%. PT. APPEARS TO BE MORE ALERT THIS A.M. OPENS EYES, BUT DOES NOT FOLLOW COMMANDS. LEVO GTT DOWN TO 2MCG/MIN. PRECEDEX AND FENTANYL GTT'S FOR SEDATION. RIGHT RADIAL ART LINE REMAINS IN PLACE. NO BOWEL MOVEMENT. PT'S UPDATED THIS A.M. ON PT. STATUS. FEBRILE THROUGHOUT SHIFT, TYLENOL GIVEN X2 DOSES PER PRN ORDER. BED LINENS CHANGED, SLIDING MAT PLACED UNDER PT. REMAINS SINUS RHYTHM ON MONITOR. BLOOD GLUCOSE HIGH, INSULIN GIVEN PER ORDERS. WILL CONTINUE TO MONITOR.
[2020-02-11 08:37] LABS: BE 5.6 mmol/L (-2 to +3); PCO2 43.5 mmHg (35.0-45.0); pH 7.458 (7.340-7.450)
--- NOTE | 2020-02-11 13:27 | NUR ---
ICU rounds: Newest covid test is positive. Febrile. Tube feeds. Waking up a little, opening eyes. On low dose pressor. No weaning plans at this time.
--- NOTE | 2020-02-11 17:44 | NUR ---
PT REMAINS INTUBATED PER ORDERED SETTINGS.SEDATED ON FENTANYL AND PRECEDEX.PT TOLERATING TUBE FEEDINGS WITH LOW RESIDUALS.REMAINS FEBRILE THROUGHOUT SHIFT WITH TYLENOL GIVEN.ENHANCED PRECAUTIONS MAINTAINED FOR COVID.PT GIVEN LAXATIVE TODAY WITH LARGE BOWEL MOVEMENT CHARTED. UPDATED THROUGHOUT THE SHIFT. WILL CONTINUE TO MONITOR FOR DURATION OF SHIFT.
[2020-02-12] VITALS (30 sets, daily range): BP systolic 97–149; BP diastolic 44–65
[2020-02-12 05:25] LABS: HEMATOCRIT 37.6 % (42.0-52.0); HEMOGLOBIN 12.4 gm/dL (14.0-18.0); MCHC 33.1 g/dL (28.0-37.0); MCV 87.7 fL (80.0-100.0); MPV 9.3 fl. (7.2-11.1); NUCLEATED RBCS 0 /100WBC; PLATELET COUNT* 149 thou/uL (150-400); RBC 4.28 mil/uL (4.50-6.00); RDW-CV 17.4 % (10.5-14.5); WBC 9.8 thou/uL (4.0-11.0)
[2020-02-12 05:38] LABS: ALBUMIN 2.2 g/dL (3.4-5.0); CALCIUM 8.5 mg/dL (8.5-10.1); CREATININE 1.5 mg/dL (0.6-1.3); TOTAL BILIRUBIN 0.5 mg/dL (<0.1-1.0); TOTAL PROTEIN 6.1 g/dL (6.4-8.2)
--- NOTE | 2020-02-12 05:46 | NUR ---
ASSUMED PATEINT CARE AT 1900. PATEINT REMAINS ON PRECEDEX AND FENTANYL FOR SEDATION. LEVOPHED HAS BEEN STOPPED. ABLE TO OPEN EYES AND NOD YES OR NO TO SIMPLE QUESTIONS. UNABLE TO MILLING MACHINE OPERATOR BILATERALLY AT THIS TIME. CONTINUES ON TUBE FEEDING AND HAS REACHED GOAL OF 65ML/HR WITH RESIDUALS<20ML. FEBRILE THROUGH SHIFT. TYLENOL GIVEN WITH NO AFFECT. ICE BAGS PLACED TO BILATERAL GROIN AND AXILLARY AREAS. TEMPERATURE DROP OF ONE DEGREE NOTED. PATIENT FLUSHED, EYES BLOODSHOT. REMAINS ON VENTILATOR AND FOLLOWS COMMANDS. BARRELHEAD INSPECTOR COMPLETED DOCUMENTED.
[2020-02-12 05:56] LABS: ABSOLUTE LYMPHOCYTES 0.9 thou/uL (0.8-5.3); ABSOLUTE MONOCYTES 1.2 thou/uL (0.0-1.2); ABSOLUTE NEUTROPHILS 7.7 thou/uL (1.6-8.1); ANISOCYTOSIS 1+; PLATELET ESTIMATE DECREASED; POIKILOCYTOSIS 1+
[2020-02-12 08:23] LABS: BE 4.5 mmol/L (-2 to +3); PCO2 45.3 mmHg (35.0-45.0); PO2 82.6 mmHg (75.0-100.0); pH 7.431 (7.340-7.450)
--- NOTE | 2020-02-12 14:42 | NUR ---
ICU rounds: Pt on 45%Fio2. Pt able to follow commands, nods head. Covid positive.
--- NOTE | 2020-02-12 18:52 | NUR ---
PATIENT REMAINS INTUBATED AND SLIGHTLY SEDATED AT THIS TIME. PATIENT IS ABLE TO NOD TO YES AND NO QUESTIONS. PATIENT UNABLE TO SQUEEZE HANDS OR MOVE FEET BUT I BELIEVE IT IS DUE TO WEAKNESS. ASSESSMENTS CHARTED. REMIANS IN ISOLATION FOR COVID AT THIS TIME. MULTIPLE CALLS TODAY FROM HIS . NO FURTHER CONCERNS AT THIS TIME. WILL CONTINUE TO MONITOR AND CARE PER PLAN OF CARE.
[2020-02-13] VITALS (49 sets, daily range): BP systolic 71–153; BP diastolic 46–81
[2020-02-13 06:17] LABS: ABSOLUTE LYMPHOCYTES 0.7 thou/uL (0.8-5.3); ABSOLUTE MONOCYTES 0.5 thou/uL (0.0-1.2); BASOPHILS 0.5 %; HEMATOCRIT 31.9 % (42.0-52.0); HEMOGLOBIN 10.6 gm/dL (14.0-18.0); LYMPHOCYTES 7.3 %; MCH 28.9 pg (26.0-34.0); MCHC 33.2 g/dL (28.0-37.0); MCV 87.2 fL (80.0-100.0); MONOCYTES 5.8 %; MPV 9.6 fl. (7.2-11.1); NUCLEATED RBCS 0 /100WBC; PLATELET COUNT* 148 thou/uL (150-400); POLYS 86.4 %; RBC 3.66 mil/uL (4.50-6.00); RDW-CV 16.7 % (10.5-14.5); WBC 9.3 thou/uL (4.0-11.0)
[2020-02-13 06:30] LABS: ALBUMIN 2.4 g/dL (3.4-5.0); CREATININE 1.6 mg/dL (0.6-1.3); MAGNESIUM 2.3 mg/dL (1.8-2.4); POTASSIUM 5.1 mmol/L (3.5-5.1); TOTAL BILIRUBIN 0.4 mg/dL (<0.1-1.0); TOTAL PROTEIN 6.1 g/dL (6.4-8.2)
[2020-02-13 06:37] LABS: PHOSPHORUS* 3.4 mg/dL (2.5-4.9)
[2020-02-13 08:23] LABS: PCO2 43.3 mmHg (35.0-45.0); PO2 92.2 mmHg (75.0-100.0); pH 7.425 (7.340-7.450)
--- NOTE | 2020-02-13 14:32 | NUR ---
ICU rounds: Remains on vent. Covid positive. Follows commands.
[2020-02-14] VITALS (39 sets, daily range): BP systolic 104–153; BP diastolic 38–82
[2020-02-14 04:52] LABS: ABSOLUTE BASOPHILS 0.1 thou/uL (0.0-0.2); ABSOLUTE LYMPHOCYTES 0.7 thou/uL (0.8-5.3); ABSOLUTE MONOCYTES 0.3 thou/uL (0.0-1.2); ABSOLUTE NEUTROPHILS 9.4 thou/uL (1.6-8.1); BASOPHILS 0.9 %; HEMATOCRIT 32.6 % (42.0-52.0); HEMOGLOBIN 10.6 gm/dL (14.0-18.0); LYMPHOCYTES 6.2 %; MCH 28.4 pg (26.0-34.0); MCHC 32.5 g/dL (28.0-37.0); MCV 87.4 fL (80.0-100.0); MONOCYTES 2.9 %; MPV 9.6 fl. (7.2-11.1); NUCLEATED RBCS 0 /100WBC; PLATELET COUNT* 145 thou/uL (150-400); RBC 3.73 mil/uL (4.50-6.00); RDW-CV 16.7 % (10.5-14.5); WBC 10.5 thou/uL (4.0-11.0)
[2020-02-14 05:06] LABS: ALBUMIN 2.5 g/dL (3.4-5.0); CALCIUM 8.9 mg/dL (8.5-10.1); CREATININE 1.9 mg/dL (0.6-1.3); PHOSPHORUS* 3.8 mg/dL (2.5-4.9); POTASSIUM 4.6 mmol/L (3.5-5.1); TOTAL BILIRUBIN 0.5 mg/dL (<0.1-1.0); TOTAL PROTEIN 6.1 g/dL (6.4-8.2)
--- NOTE | 2020-02-14 06:16 | NUR ---
NO ACUTE CHANGES DURING SHIFT. PT REMAINS INTUBATED AND SEDATED ON VENTILATOR. PT OUT OF RESTRAINTS SINCE DAY SHIFT. PT VERY WEAK AND UNABLE TO LIFT ARMS. PT TRACKS WITH EYES AND MOUTHS WORDS. PT GIVEN PRN TYLENOL WITH HS MEDS AND AGAIN THIS AM FOR ORAL TEMP OF 103 AT 0400. PT'S OTHER VITAL SIGNS WITHIN NORMAL LIMITS.
[2020-02-14 08:51] LABS: BE 4.4 mmol/L (-2 to +3); PCO2 42.1 mmHg (35.0-45.0); PO2 79.2 mmHg (75.0-100.0); pH 7.452 (7.340-7.450)
--- NOTE | 2020-02-14 11:46 | NUR ---
WOUND NURSE: PATIENT SEEN FOR FOLLOW UP ASSESSMENT PERTAINING TO SACROCOCCYGEAL DEEP TISSUE INJURY. PRESENTS WITH PURPLISH BLACK NONBLANCHEABLE TISSUE AND PERIWOUND BLISTERING. MODERATE AMOUNT OF SEROUSANGUINOUS DRAINAGE PRESENT. MEASURES 15 X 11 CM. CLEANSED WITH SOAP AND WATER, RINSED WITH WATER, THEN PATTED DRY APPLIED SACRAL BORDERED FOAM DRESSING AND WILL APPLY AQUACEL AG UNDERNEATH THE BORDERED FOAM WITH NEXT POSITION CHANGE. PATIENT TO BE POSITIONED SIDE TO SIDE ONLY IF TOLERATED. PATIENT IS MORBIDLY OBESE. PATENT IS ALSO IN COVID ISOLATION WHICH MAY CREATE A CHALLENGE TO PROVIDE BARIATRIC OR LOW AIRLOSS MATTRESS. WE WILL PLACE HOVERMAT UNDER PATIENT WITH NEXT POSTION CHANGE ALSO. PATIENT IS NOT TEACHEABLE.
--- NOTE | 2020-02-14 17:02 | NUR ---
VITALS SIGNS STABLE THIS SHIFT. MAINTAINS NSR. PT ALERT TO NAME, AND RESPONSIVE TO SIMPLE QUESTIONS. DENIES PAIN. TV ON FOR ENTERTAINMENT. FAVORITES ARE NATURE RELATED CHANNELS. SATS MID 90'S ALL SHIFT ON 40% FIO2. PEEP DECREASED FROM 10-8 WITH CONTINUED MID 90 SAT RANGE. VERY WEAK IN ALL EXTREMITIES. NEGATIVE CPR INSTRUCTOR IN RIGHT HAND. MILD COUGH WITH STIMULUS WITH SCANT CLEAR/WHITE SECRETIONS. TEMP LABILE 100-102 WITH TYLENOL GIVEN ONCE, BLOOD CX'S AND REPEAT COVID SENT PER MD ORDER. URINE OUTPUT ADEQUATE. NO STOOLS. TOLERATING TF BETTER TODAY WITH RESIDUALS <11CC WHEN CHECKED. RATE INCREASED TO 45 ([id number]). SACRAL DECUB WORSE WITH INCREASED SIZE AND UNSTAGEABLE AREA SINCE LAST SEEN BY WOUND CARE NURSE. cHANGE TO AQUACEL DRESSING QOD TODAY. BLOOD SUGARS CONSISTENTLY OVER 200 WITH ADDITIONAL GLARGINE GIVEN PER ORDER TIMES ONE. FENTANYL GTT DC'D PER ORDER AND PT TOLERATING SO FAR. HAVE SPOKEN TO 3 TIMES TODAY WITH UPDATES. SHE WISHES TO SPEAK TO HIM TOMMOROW. ULTRASOUND OF ABDOMEN AND LEGS TODAY BENIGN
[2020-02-15] VITALS (29 sets, daily range): BP systolic 138–175; BP diastolic 58–76
[2020-02-15 05:56] LABS: HEMOGLOBIN 10.5 gm/dL (14.0-18.0); MCH 28.7 pg (26.0-34.0); MCHC 32.9 g/dL (28.0-37.0); MCV 87.1 fL (80.0-100.0); MPV 10.1 fl. (7.2-11.1); NUCLEATED RBCS 0 /100WBC; PLATELET COUNT* 131 thou/uL (150-400); RBC 3.67 mil/uL (4.50-6.00); RDW-CV 16.7 % (10.5-14.5); WBC 11.1 thou/uL (4.0-11.0)
[2020-02-15 06:08] LABS: PREALBUMIN 42.4 mg/dL (18.0-35.7)
[2020-02-15 06:11] LABS: ALBUMIN 2.4 g/dL (3.4-5.0); CREATININE 1.6 mg/dL (0.6-1.3); MAGNESIUM 1.9 mg/dL (1.8-2.4); TOTAL BILIRUBIN 0.5 mg/dL (<0.1-1.0); TOTAL PROTEIN 6.1 g/dL (6.4-8.2)
--- NOTE | 2020-02-15 06:17 | NUR ---
ASSUMED PATIENT CARE AT 1900. ASSESSMENTS COMPLETED CHARTED. CARDIAC MONITORING IN PLACE. PATIENT REPOSITIONED Q2H. FALL PRECAUTIONS IN PLACE. BED LOCKED AND IN LOWEST POSITION.
[2020-02-15 06:26] LABS: ABSOLUTE LYMPHOCYTES 1.3 thou/uL (0.8-5.3); ABSOLUTE MONOCYTES 0.3 thou/uL (0.0-1.2); ABSOLUTE NEUTROPHILS 9.4 thou/uL (1.6-8.1); ATYPICAL LYMPHS 1 %; PLATELET ESTIMATE ADEQUATE
[2020-02-15 08:42] LABS: BE 3.2 mmol/L (-2 to +3); PCO2 35.1 mmHg (35.0-45.0); PO2 71.1 mmHg (75.0-100.0); pH 7.493 (7.340-7.450)
--- NOTE | 2020-02-15 09:25 | NUR ---
2840 ASSUMED CARE OF PATIENT. PLEASE SEE DOCUMENTED ASSESSMENT. PLAN IS FOR VENT WEANING TRIAL
--- NOTE | 2020-02-15 10:37 | NUR ---
1005 PATIENT MOVED TO ROOM 1 IN ICU AND PLACED ON LOW AIRFLOW MATTRESS. EXTUBATED AND OG REMOVED. PLACED ON 6LPM NASAL CANNULA. DR PHAN IN ROOM POST EXTUBATION.
--- NOTE | 2020-02-15 17:24 | NUR ---
PATIENT PROGRESSING TOWARDS GOALS. EXTUBATED THIS MORNING AND ON 6LPM HIGH FLOW CANNULA. VOICE IS STRONG NOW. PATIENT WAS VERY CONFUSED BUT NOW IS AWARE HE IS IN HOSPITAL. ABLE TO HAVE SOME COMMUNICATION ON PHONE WITH SPOUSE. REMAINS NPO AT THIS TIME. TEMPERATURE HAS COME DOWN THIS AFTERNOON. PATIENT WAS MOVED TO NEGATIVE AIR FLOW ROOM AND PLACED ON SPECIALTY MATTRESS.
--- NOTE | 2020-02-15 22:49 | NUR ---
INITAL ASSESMENT COMPLETED AT 1945. PT ALERT AND ORIENT TO PERSON AND SITUATION. PO MEDS HELD DUE TO EXTUBATION TODAY, SWALLOW STUDY PENDING. ORAL SWABS DONE Q2 HRS. PT REPOSITIONED Q 2 HRS TO PROMOTE HEALING TO WOUND ON COCCYX.
[2020-02-16] VITALS (44 sets, daily range): BP systolic 119–172; BP diastolic 37–121
[2020-02-16 05:49] LABS: INR 1.2; PROTIME 12.2 Seconds (9.20-11.50)
[2020-02-16 05:59] LABS: ABSOLUTE LYMPHOCYTES 0.8 thou/uL (0.8-5.3); ABSOLUTE MONOCYTES 0.3 thou/uL (0.0-1.2); ABSOLUTE NEUTROPHILS 10.9 thou/uL (1.6-8.1); BASOPHILS 0.3 %; HEMATOCRIT 34.5 % (42.0-52.0); HEMOGLOBIN 11.5 gm/dL (14.0-18.0); MCH 29.2 pg (26.0-34.0); MCHC 33.4 g/dL (28.0-37.0); MCV 87.2 fL (80.0-100.0); MONOCYTES 2.7 %; MPV 10.5 fl. (7.2-11.1); NUCLEATED RBCS 0 /100WBC; PLATELET COUNT* 158 thou/uL (150-400); RBC 3.96 mil/uL (4.50-6.00); RDW-CV 16.1 % (10.5-14.5); WBC 12.1 thou/uL (4.0-11.0)
[2020-02-16 06:22] LABS: ALBUMIN 2.4 g/dL (3.4-5.0); CALCIUM 8.9 mg/dL (8.5-10.1); CREATININE 1.4 mg/dL (0.6-1.3); POTASSIUM 3.6 mmol/L (3.5-5.1); TOTAL BILIRUBIN 0.6 mg/dL (<0.1-1.0); TOTAL PROTEIN 6.1 g/dL (6.4-8.2)
[2020-02-16 07:54] LABS: BE 1.6 mmol/L (-2 to +3)
[2020-02-16 07:57] LABS: PO2 46.8 mmHg (75.0-100.0)
--- NOTE | 2020-02-16 19:47 | NUR ---
INITAL ASSESMENT COMPLETED AT 1914. PT HAD LARGE LIQUID STOOL AT THAT TIME. COMPLETE BED BATH, LINEN CHANGE AND WOUND CARE CARE DONE TO SACRAL DUCUBE.
--- NOTE | 2020-02-16 19:53 | NUR ---
I ASSUMED CARE OF THE PATIENT AT 0700. HE IS ALERT AND ORIENTED X4. BED IS IN THE LOW LOCKED POSITION AND CALL LIGHT IS IN REACH. PATIENT NEEDS ARE MET DURING HOURLY ROUNDING. PAIN IS DENIED. LOW AIR LOSS MATTRESS IS IN PLACE AND PATIENT IS TURNED EVERY 2 HOURS. BLOOD SUGAR IS MONITORED AND MANAGED. NPO STATUS IS MAINTAINED AND AN NG TUBE WAS PLACED. IT IS TAPED AT 65 AND PLACEMENT IS VERIFIED. TUBE FEED WAS STARTED AT 20/HR AT 1700 AND TITRATED UP AT 1915 TO 30/HR. PRECEDEX WAS TITRATED DOWN AND THEN TURNED OFF WHEN PATIENT BECAME TRICE. DR PÉREZ WOULD LIKE TO BE CONTACTED IF WOUND LOOKS INFECTED. HE WAS PAGED. WOUND WAS CLEANED AND DRESSING WAS CHANGED. COVID RE-SWAB IS STILL PENDING. PATIENT WAS AFEBRILE THE ENTIRE SHIFT. WILL CONTINUE TO MONITOR.
--- NOTE | 2020-02-16 20:23 | NUR ---
NG TUBE WAS PLACED AND THEN VERIFIED BY XRAY. IT IS TAPED AT 65 AT THE LIP. MEDS WERE GIVEN VIA TUBE AND FEEDING WAS STARTED.
--- NOTE | 2020-02-16 21:54 | NUR ---
VIDEO ASSESMENT DONE WITH WITH DR PEREIRA. ABG ORDERED FOR BRADYCARDIA.
--- NOTE | 2020-02-16 21:55 | NUR ---
INFORMED DR PEREIRA PRESIDEX OFF PRIOR TO SHIFT CHANGE FOR HEART RATE IN LOW 40'S.
[2020-02-16 22:31] LABS: BE 0.7 mmol/L (-2 to +3); PCO2 29.3 mmHg (35.0-45.0); pH 7.507 (7.340-7.450)
[2020-02-16 22:33] LABS: PO2 58.2 mmHg (75.0-100.0)
--- NOTE | 2020-02-16 22:46 | NUR ---
ABG RESULTS REPORTED TO DR PEREIRA. RECIEVED ORDERS FOR BIPAP.
--- NOTE | 2020-02-16 23:54 | NUR ---
PT GIVEN PRN ATIVAN AND PLACED ON BIPAP BY RT. PT TOLERATING BIPAP AT THIS TIME.
[2020-02-17] VITALS (33 sets, daily range): BP systolic 120–238; BP diastolic 67–103
--- NOTE | 2020-02-17 02:35 | NUR ---
NOTIFIED DR PHAN OF RISING BLOOD PRESSURES. RECIEVED ORDER TO START NORVASC.
--- NOTE | 2020-02-17 06:08 | NUR ---
PT SLOWLY PROGRESSING TOWARD GOALS. PT ON BIPAP DURING NIGHT. BLOOD PRESSURE HIGH DURING SHIFT. NORVASC STARTED VIA NG. TO FEVERS DURING SHIFT.
[2020-02-17 11:01] LABS: ABSOLUTE BASOPHILS 0.1 thou/uL (0.0-0.2); ABSOLUTE LYMPHOCYTES 0.8 thou/uL (0.8-5.3); ABSOLUTE MONOCYTES 0.6 thou/uL (0.0-1.2); ABSOLUTE NEUTROPHILS 19.3 thou/uL (1.6-8.1); BASOPHILS 0.3 %; HEMATOCRIT 39.8 % (42.0-52.0); HEMOGLOBIN 12.8 gm/dL (14.0-18.0); MCH 28.7 pg (26.0-34.0); MCHC 32.2 g/dL (28.0-37.0); MPV 10.5 fl. (7.2-11.1); NUCLEATED RBCS 0 /100WBC; POLYS 92.7 %; RBC 4.48 mil/uL (4.50-6.00); RDW-CV 17.5 % (10.5-14.5); WBC 20.9 thou/uL (4.0-11.0)
[2020-02-17 11:05] LABS: PLATELET COUNT* 288 thou/uL (150-400)
[2020-02-17 11:10] LABS: ALBUMIN 2.6 g/dL (3.4-5.0); CREATININE 1.3 mg/dL (0.6-1.3); MAGNESIUM 2.2 mg/dL (1.8-2.4); PHOSPHORUS* 3.5 mg/dL (2.5-4.9); POTASSIUM 3.2 mmol/L (3.5-5.1); TOTAL BILIRUBIN 0.9 mg/dL (<0.1-1.0); TOTAL PROTEIN 6.3 g/dL (6.4-8.2)
--- NOTE | 2020-02-17 12:20 | NUR ---
ICU rounds: Pt didn't pass swallow, quesiton need for peg tube. On 6L o2. Plan rehab vs SNF.
--- NOTE | 2020-02-17 18:55 | NUR ---
PATIENT RESTING IN BED. Q2H BED TURNS WITH SO ASSISTANCE FROM PATIENT. LEFT HAND STRENGTH MODERATE AND RIGHT HAND STRENGTH MINIMAL. AOX2 AND CONFUSED. IV ABX ABD POTASSIUM REPLACEMETN COMPLETED.
[2020-02-18] VITALS (42 sets, daily range): BP systolic 93–157; BP diastolic 44–107
--- NOTE | 2020-02-18 03:53 | NUR ---
patient b/p trending down with the close completion of one liter of iv saline. She has been awake since arrival to the icu. She does not easily volunteer information about how she feels and needs to be asked directly. She has just stated she has a headache and when queried further states she has had it almost all night and she declined the offer of a pain medication for it. She states it is at the top of her head without radiation and is similar to what she usually has. b/p88-90's/30-50's with map 62-71. She denies dizziness or vision changes at this time. Embossing Unit Operator equal. Movements are strong, symetrical. Puplis 4+ bilateral. Heart rate 55-70 NSR consistently.
--- NOTE | 2020-02-18 09:06 | NUR ---
WOUND NURSE: PATIENT SEEN FOR FOLLOW UP ASSESSMENT PERTAINING TO SACROCOCCYGEAL DEEP TISSUE INJURY. THER IS ALSO 2.5 CM X 2.5 CM RUPTURED BLISTER PRESENT ON THE RIGHT BUTTOCK. PERIWOUND COLOR IMPROVED COMPARED TO LAST ASSESSMENT. TODAY, AFFECTED AREA MEASURING 9.0 X 9.5. NO MEASUREABLE DEPTH NOTED. GLUTEAL CREASE WITH BLACKENED DISCOLORATION AND PURPLE NONBLANCHEABLE TISSUE TOWARD OUTER EDGES. PATIENT WAS INCONTINENT OF STOOL AND REQUIRED CLEANSING WHICH WAS PERFORM ALONG WITH PARTIAL BED CHANGE. SUBSTITUTED OPTIFOAM GENTLE AG UNTIL SACRAL BORDERED FOAMS CAN BE REPLENISHED. ULISES IS NOW ON A LOW AIRLOSS MATTRESS AND WAS POSITIONED ONTO HIS RIGHT SIDE UPON COMPLETION OF CARE. PATIENT IS NOW EXTUBATED, BUT CONFUSED AND NONTEACHEABLE. STAFF NURSE, NEENA, ASSISTED THIS NURSE IN PROVIDING WOUND CARE AND ASSESSMENT WITH THIS PATIENT.
[2020-02-18 10:38] LABS: HEMOGLOBIN 12.3 gm/dL (14.0-18.0); MCH 28.6 pg (26.0-34.0); MCHC 32.4 g/dL (28.0-37.0); MCV 88.1 fL (80.0-100.0); MPV 9.4 fl. (7.2-11.1); RBC 4.32 mil/uL (4.50-6.00); RDW-CV 18.1 % (10.5-14.5); WBC 15.2 thou/uL (4.0-11.0)
[2020-02-18 11:11] LABS: CALCIUM 8.6 mg/dL (8.5-10.1); CREATININE 1.2 mg/dL (0.6-1.3)
--- NOTE | 2020-02-18 15:47 | NUR ---
ICU rounds: rehab consulted. Therapies to see. Tele status
--- NOTE | 2020-02-18 18:48 | NUR ---
PT ALERT TO SELF, CONFUSED AND INCOHERENTELY RAMBLES. PT HALLUCINATING AT TIMES, SAYS HE SEES COCKROACHES CRAWLING EVERYWHERE. ASSISTED PT WITH CALLING , CONCERNED WITH CONFUSION, ALL QUESTIONS ANSWERED, EXPLAINED ICU DELIRIUM. PT TOTAL FEED, TOLERATED WELL, ATE 50% WITH FULL ASSISTANCE. ENCOURAGE PT THROUGH DAY TO LIFT ARM AND MOVE FEET TO INCREASE STRENGTH. VITAL SIGNS STABLE, HAS BEEN DOWNGRADED TO CC TELE STATUS.
--- NOTE | 2020-02-18 21:30 | NUR ---
PATEINT REMOVED HIS NG. UNABLE TO PLACE ANOTHER TUBE. PATIENT WILL DESAT TO LOW 80'S DURING PLACEMENT AND ACTIVELY FIGHTS WHEN HAVING TUBE PLACED. UNABLE TO CONTINUE TUBE FEEDING, H2O FLUSHES, OR ADMINISTER PO MEDICATION. PAGED PHYSICIAN, AWAITING CALL BACK WITH RECOMMENDATIONS. MARYURI
[2020-02-19] VITALS (27 sets, daily range): BP systolic 113–164; BP diastolic 35–102
[2020-02-19 05:05] LABS: BE 0.8 mmol/L (-2 to +3); pH 7.493 (7.340-7.450)
[2020-02-19 05:07] LABS: PO2 159.8 mmHg (75.0-100.0)
[2020-02-19 06:38] LABS: HEMATOCRIT 35.8 % (42.0-52.0); HEMOGLOBIN 11.9 gm/dL (14.0-18.0); MCH 29.1 pg (26.0-34.0); MCHC 33.1 g/dL (28.0-37.0); MCV 87.7 fL (80.0-100.0); MPV 9.1 fl. (7.2-11.1); RBC 4.08 mil/uL (4.50-6.00); RDW-CV 18.1 % (10.5-14.5); WBC 14.5 thou/uL (4.0-11.0)
[2020-02-19 06:54] LABS: ALBUMIN 2.5 g/dL (3.4-5.0); CALCIUM 8.9 mg/dL (8.5-10.1); CREATININE 1.2 mg/dL (0.6-1.3); MAGNESIUM 1.9 mg/dL (1.8-2.4); TOTAL BILIRUBIN 0.7 mg/dL (<0.1-1.0)
--- NOTE | 2020-02-19 07:04 | NUR ---
ASSESSMENT CHARTED. ATTEMPTED TO PLACE NG FOR A SECOND TIME THIS SHIFT WITH NO SUCCESS. PATIENT DID NOT TOLERATE PLACEMENT AND DESATS TO 80'S DURING PLACEMENT. PATIENT WAS ON BIPAP FOR THE MAJORITY OF THE NIGHT. PATIENT BECAME AGITATED AND COMBATIVE WITH NURSING STAFF AND RT. ATIVAN GIVEN PER ORDERS AND PATIENT WAS CALMED FOR THE MAJORITY OF THE SHIFT. REMAINS TELE STATUS.
--- NOTE | 2020-02-19 15:59 | NUR ---
ICU rounds: Tele status but to remain in ICU d/t iso precautions and neb use. Pt is slowly recovering. Rehab consult pending, Pt will need to be out of the ICU prior to Dr Bradley seeing Pt. Repeat covid. T[facility], TERE to fax a referral to them f:[phone] once repeat covid test is back. Per Veena, they accept Pt's based on symptoms, not necessarily on test results. TERE left VM for CM at [facility].
--- NOTE | 2020-02-19 18:58 | NUR ---
PT ALERT TO SELF AND YEAR, CONFUSED AND RAMBLING, PT IS WEAK UPPER EXTREMETIES-FULL FEED, 50-75% MEALS TOLERATED. ENCOURAGED ACTIVE MOVEMENT. TOLERATED PT/OT WELL, SAT ON SIDE OF BED WITH ASSISTANCE FOR APPROX 5-6MINS. SPOKE WITH TWICE UPDATED ON PT/OT PROGRESS, AND TRANSFER ORDERS.
[2020-02-19 22:04] LABS: CALCIUM 8.9 mg/dL (8.5-10.1); CREATININE 1.1 mg/dL (0.6-1.3); POTASSIUM 4.2 mmol/L (3.5-5.1)
[2020-02-20] VITALS: BP 136/66
[2020-02-20 04:00] VITALS: BP 136/60
--- NOTE | 2020-02-20 04:39 | NUR ---
PT ARRIVED ON UNIT AGITATED AND CONFUSED, PT WAS GIVEN ATIVAN TO HELP AND HAS SLEEP WELL THROUGHOUT THE NIGHT. NO ACUTE CHANGES. ALL ROUNDINGS COMPLETED, ALL NEEDS MET, FULL ASSESSMENT COMPLETED CHARTED.
--- NOTE | 2020-02-20 07:43 | NUR ---
ASSESS PT THIS AM AND PT IS REFUSING ALL CARE. WILL ASSESS WITH [facility] WHEN THEY ROUND.
[2020-02-20 11:03] VITALS: BP 162/53
--- NOTE | 2020-02-20 13:19 | NUR ---
REPORT GIVEN TO REJI PRAJAPATI WHO WILL TAKE OVER CARE OF PT.
--- NOTE | 2020-02-20 13:22 | NUR ---
Pt moved to tele. Per . Pt confused today, tele psych consult ordered. Repeat covid pending
--- NOTE | 2020-02-20 13:47 | NUR ---
CARE RECEIVED AT 1330 FROM VICTORINA NIX
--- NOTE | 2020-02-20 15:43 | NUR ---
FRIAS CATHETER PATENT. OUTPUT OF 750 CC RECORDED AT 1540. PT REPOSITIONNED ON BACK IN HIGH FOWLERS POSITION. ACCUCHECK 146. NO INSULIN NEEDED FOR DINER TIME. VS TAKEN. FIRST DOSE OF DECADRON GIVEN. IV ANTIBIOTIC HANGED. PT IS INCONTINENT OF BOWEL . PT HAD A BOWEL MOVEMENT IN BED AND WAS CLEANED IN ROOM BY THIS NURSE. SPECIAL MATTRESS IN USE.
[2020-02-20 16:07] VITALS: BP 116/34
--- NOTE | 2020-02-20 17:53 | CON ---
[address] [address] CONSULTATION Name: STEPHANIE NARANJO Room: [address] ADM IN .R.#: [id number] Admission: 01/31/20 Attend Phys: Barry Napier MD Discharge: Date of : 47 Report #: [id number] THIS REPORT FOR: //name// cc: James Estrada MD, Anthony MD ~ THIS REPORT FOR: //name// CC: Barry Estrada DATE OF SERVICE: 02/19/2020 HISTORY OF PRESENT ILLNESS: This is a 74-year-old male patient who was evaluated by me for altered mental status and the weakness. This patient has a pretty involved history. He has been critically sick with COVID. Nurses tell me his COVID is still positive. He has been in hospital for some time. He is pretty confused. I do not know how long his confusion is going on. Records indicate that before getting admitted here, he was even admitted to [facility]. I talked to Dr. Khan, the patient's admitting physician and she indicated that the patient got some Reglan and that has been discontinued. It has been discontinued just now, so it is not possible to tell if it has made any difference or not. REVIEW OF SYSTEMS: Was carried out and it is mostly from the records. He has a pretty severe respiratory difficulty. He has a history of reflux. He has chronic obstructive pulmonary disease. Has a history of epistaxis. He was febrile when he came here. He has been seen by multiple consultants for multiple problems. He had some shoulder problem, back problem and the knee problems in the past. That was his relevant 14-point review of system I could get from the records. PAST MEDICAL HISTORY: Positive for pneumonia for which he was admitted to [facility]. FAMILY HISTORY: Noncontributory. SOCIAL HISTORY: He has a prior history of smoking. PHYSICAL EXAMINATION: His exam was difficult. He is alert. He can sometime follow commands. He does not make any sense. He talks irrelevantly. His memory is not good, but his speech is intact. He is weak in all 4 extremities. I tried to do the position sense, I could not tell much. His reflexes are absent in the lower extremities. That is all the exam, I could carry out. His blood pressure is 154/86, respirations 15, pulse is 77. He is afebrile, but nurses tell me he is still COVID positive. His white count is 14.5. He does have respiratory difficulty. Cardiac examination appears [place] [address] CONSULTATION Name: STEPHANIE NARANJO Room: [address] IN ..#: [id number] Admission: 01/31/20 Attend Phys: Barry Napier MD Discharge: Date of : 47 Report #: [id number] has not had any imaging studies of the brain. His pulses were difficult to feel. LABORATORY DATA: Also indicate that his sodium was high, it is 149 now, but it was 155. IMPRESSION: Pretty difficult to form in this patient. I suspect he has encephalopathy. 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 The problem is what can we do to work him up and that is not easy. I do not know what protocol they have to follow if we do MRI and more importantly, I do not think he will be able to cooperate with MRI. It might be desirable to CT scan on him, but again I do not know whether they can do that and CT is not going to give him as much information as MRI is going to give. RECOMMENDATIONS: I will talk to the MRI and CT and see how much work is going to be to get some imaging study of the brain. I will check a TSH and vitamin B12. He has multiple metabolic abnormalities and we will see if he improves after correcting them. Thank you very much for this referral and if you have any question, please feel free to contact me. <ELECTRONICALLY SIGNED> By: Andrea Bagley MD 02/20/20 1753 [id number] Bagley MD /nt
--- NOTE | 2020-02-20 18:05 | NUR ---
PT FED AT DINER TIME. BLOOD SUGAR 146. NO INSULIN NEEDED. NONE GIVEN. PT REPOSITIONED. HEB KEPT ELEVATED DURING MEAL TIME AND 3O MIN AFTER MEAL TIME. FRIAS EMPTIED
[2020-02-21] VITALS: BP 82/27
[2020-02-21 01:27] VITALS: BP 143/55
--- NOTE | 2020-02-21 04:59 | NUR ---
NO ACUTE CHANGES THROUGHOUT SHIFT. ALL ROUNDINGS COMPLETED, ALL NEEDS MET, FULL ASSESSMENT COMPLETED CHARTED.
[2020-02-21 05:05] LABS: HEMATOCRIT 33.7 % (42.0-52.0); HEMOGLOBIN 11.3 gm/dL (14.0-18.0); MCH 29.4 pg (26.0-34.0); MCHC 33.6 g/dL (28.0-37.0); MCV 87.5 fL (80.0-100.0); MPV 9.2 fl. (7.2-11.1); RBC 3.85 mil/uL (4.50-6.00); WBC 9.2 thou/uL (4.0-11.0)
[2020-02-21 05:14] LABS: CALCIUM 8.6 mg/dL (8.5-10.1); CREATININE 1.1 mg/dL (0.6-1.3); MAGNESIUM 1.9 mg/dL (1.8-2.4)
[2020-02-21 08:00] VITALS: BP 136/78
--- NOTE | 2020-02-21 14:58 | NUR ---
Per , Pt may be medically stable to dc early next week. CM faxed initial referral to [facility] rehab to see if they would be willing to accept Pt. CM left VM for Pt's , awaiting call back. [facility] will only consider Pt for rehab with 2 negative covid tests. Following.
--- NOTE | 2020-02-21 16:30 | NUR ---
ULISES RESTING IN BED. UP WITH MODERATE ASSISTANCE TO STAND. VSS AND PATIENT DENIES ANY DISTRESS AT THIS TIME. 5L PER NASAL CANULA. AOX3 AND CONVERSIVE TODAY. HE SPOKE WITH HIS VIA TELEPHONE SEVERAL TIMES TODAY. AWAITING CONTINUED IMPROVEMENT FOR POSSIBLE DISCHARGE TO SNF FOR [facility] PRIOR TO RETURNING HOME. FRIAS TO DRAIN. AMANDA MISHRA FOR PATINET SAFETY.
[2020-02-21 16:39] VITALS: BP 148/68
[2020-02-21 20:00] VITALS: BP 130/75
[2020-02-22] VITALS: BP 142/74
[2020-02-22 04:15] VITALS: BP 143/75
[2020-02-22 04:17] LABS: ABSOLUTE BASOPHILS 0.1 thou/uL (0.0-0.2); ABSOLUTE LYMPHOCYTES 1.2 thou/uL (0.8-5.3); ABSOLUTE MONOCYTES 0.7 thou/uL (0.0-1.2); BASOPHILS 0.7 %; EOSINOPHILS 0.2 %; HEMATOCRIT 35.4 % (42.0-52.0); LYMPHOCYTES 10.5 %; MCH 29.3 pg (26.0-34.0); MCHC 33.8 g/dL (28.0-37.0); MCV 86.7 fL (80.0-100.0); MONOCYTES 6.5 %; MPV 9.6 fl. (7.2-11.1); NUCLEATED RBCS 0 /100WBC; PLATELET COUNT* 236 thou/uL (150-400); POLYS 82.1 %; RBC 4.09 mil/uL (4.50-6.00); RDW-CV 18.4 % (10.5-14.5)
[2020-02-22 04:53] LABS: CREATININE 1.3 mg/dL (0.6-1.3); MAGNESIUM 1.7 mg/dL (1.8-2.4)
--- NOTE | 2020-02-22 05:16 | NUR ---
NO ACUTE CHANGES THROUGHOUT SHIFT. VSS. ALL ROUNDINGS COMPLETED, ALL NEEDS MET, FULL ASSESSMENT COMPLETED CHARTED.
--- NOTE | 2020-02-22 07:05 | NUR ---
CHANGE OF SHIFT BEDSIDE REPORT GIVEN PATIENT SEEN AT BEDSIDE, IN BED RESTING ASSUMED PATIENT CARE
[2020-02-22 08:00] VITALS: BP 126/64
[2020-02-22 11:30] VITALS: BP 135/53
[2020-02-22 16:00] VITALS: BP 118/56
[2020-02-22 20:40] VITALS: BP 136/63
[2020-02-23] VITALS: BP 128/77
[2020-02-23 04:00] VITALS: BP 141/66
--- NOTE | 2020-02-23 04:41 | NUR ---
NO ACUTE CHANGES THROUGHOUT SHIFT. ALL ROUNDINGS COMPLETED, ALL NEEDS MET, FULL ASSESSMENT COMPLETED CHARTED.
--- NOTE | 2020-02-23 07:05 | NUR ---
CHANGE OF SHIFT, BEDSIDE REPORT GIVEN PATIENT SEEN AT BEDSIDE, IN BED ASLEEP ASSUMED PATIENT CARE
[2020-02-23 08:00] VITALS: BP 119/54
[2020-02-23 11:30] VITALS: BP 131/60
[2020-02-23 15:42] LABS: CALCIUM 8.6 mg/dL (8.5-10.1); CREATININE 1.3 mg/dL (0.6-1.3); MAGNESIUM 1.7 mg/dL (1.8-2.4); POTASSIUM 4.5 mmol/L (3.5-5.1)
[2020-02-23 16:00] VITALS: BP 93/41
[2020-02-23 20:09] VITALS: BP 101/56
[2020-02-24] VITALS: BP 103/32
[2020-02-24 04:00] VITALS: BP 145/67
[2020-02-24 07:12] LABS: HEMATOCRIT 38.3 % (42.0-52.0); HEMOGLOBIN 12.6 gm/dL (14.0-18.0); MCH 28.9 pg (26.0-34.0); MCV 87.5 fL (80.0-100.0); MPV 9.7 fl. (7.2-11.1); RBC 4.38 mil/uL (4.50-6.00); RDW-CV 19.5 % (10.5-14.5); WBC 13.1 thou/uL (4.0-11.0)
[2020-02-24 07:20] LABS: ALBUMIN 2.5 g/dL (3.4-5.0); CALCIUM 8.6 mg/dL (8.5-10.1); CREATININE 1.2 mg/dL (0.6-1.3); MAGNESIUM 1.7 mg/dL (1.8-2.4); TOTAL BILIRUBIN 0.7 mg/dL (<0.1-1.0); TOTAL PROTEIN 6.2 g/dL (6.4-8.2)
--- NOTE | 2020-02-24 08:02 | NUR ---
PT IS ABLE TO COMMUNICATE HIS NEEDS TO STAFF EFFECTIVELY. HE HAS DENIED THE NEED FOR PAIN MEDICATION UP TO 0700 TODAY. PT MOVED TO [facility] BED DURING THIS SHIFT; TOLERATED WELL. FRIAS HAS BEEN PATENT UP TO 0700 TODAY. MOST RECENT COVID TESTING IS PENDING AT THIS TIME; ENHANCED ISOLATION PRECAUTIONS MAINTAINED.
[2020-02-24 12:00] VITALS: BP 123/67
--- NOTE | 2020-02-24 13:02 | NUR ---
CM spoke with Pt's and updated on continued positive covid test. CM discussed [facility] requirements and discussed that [facility] may consider Pt for acute rehab based on his lack of symptoms rather than his covid tests, in agreement with CM continue to pursue to see if they are able to accept Pt. is concerned about the distance because she does not drive that far, but plans to discuss with her kids today. Once [facility] provides a decision on accepting Pt, CM to updated and to provide a final decision on whether they want Pt to go to [facility]. Following.
[2020-02-24 16:00] VITALS: BP 115/76
--- NOTE | 2020-02-24 19:00 | NUR ---
ASSUMED PT CARE AT 0730. ASSESSMENT COMPLETED CHARTED. ABLE TO MAKE NEEDS KNOWN. RESTING IN BED MOST OF THE DAY. UP TO THE CHAIR WITH PT FOR A COUPLE HOURS. C/O PAIN WITH SHOULDER MOVEMENT BUT REFUSING PAIN MEDS. [id number] COMPLETED CHARTED, REFUSED A COUPLE TURNS. MULTIPLE BOWEL MOVEMENTS TODAY AND INCONTINENT. FRIAS DRAINING DARK YELLOW URINE. WILL CONTINUE TO MONITOR.
[2020-02-24 20:08] VITALS: BP 120/59
[2020-02-24 23:45] VITALS: BP 102/80
[2020-02-25 04:00] VITALS: BP 98/63
--- NOTE | 2020-02-25 05:43 | NUR ---
PT IS ABLE TO COMMUNICATE HIS NEEDS TO STAFF EFFECTIVELY. CURRENT PAIN MEDICATION REGIMEN HAS BEEN ADEQUATE FOR CONTROLLING HIS PAIN UP TO THIS TIME. FRIAS HAS BEEN PATENT UP TO THIS TIME. PHYSICAL THERAPY HAS BEEN WORKING WITH HIM. HE HAS BEEN WEARING HIS TRILOGY WHILE SLEEPING SO FAR TONIGHT.
[2020-02-25 08:00] VITALS: BP 154/69
[2020-02-25 11:45] VITALS: BP 133/55
[2020-02-25 16:00] VITALS: BP 143/56
--- NOTE | 2020-02-25 16:18 | NUR ---
CM INFORMED OF THE NEED TO F/U WITH [facility] TO DISUCSS ABILITY TO ACCEPT THEPT AT D/C. CM MADE MULTIPLE CALL AND LEFT MULTIPLE MESSAGES, BUT NO RETURN CALL WAS RECEIVED FROM RON (TENA). CM ALSO ATTEMPTED TO CONTACT PT'S SPOUSE TO DISCSS D/C PLANNING. NO ANSWER AND UNABLE TO LEAVE A MESSAGE. CM WILL F/U TOMORROW. CM WILL REMAIN AVAILABLE TO ASSIST AND FOLLOW NEEDED. [facility] PHONE: [phone] FAX: [phone]
--- NOTE | 2020-02-25 19:00 | NUR ---
ASSUMED PT CARE AT 0730. ASSESSMENT COMPLETED CHARTED. ABLE TO MAKE NEEDS KNOWN. [id number] COMPLETED CHARTED. RESTING IN BED. MULTIPLE BOWEL MOVEMENTS TODAY. C/O PAIN BUT REFUSED TYLENOL AND DIDNT KNOW WHAT HE WANTED TO TAKE. WILL CONTINUE TO MONITOR.
[2020-02-25 20:49] VITALS: BP 104/52
[2020-02-26] VITALS: BP 107/42
--- NOTE | 2020-02-26 05:41 | NUR ---
PT IS ABLE TO COMMUNICATE HIS NEEDS TO STAFF EFFECTIVELY. HE HAS DENIED THE NEED FOR PAIN MEDICATION UP TO THIS TIME. ALTAGRACIA HAS BEEN PATENT THIS SHIFT UP TO THIS TIME. ENHANCED ISO PRECAUTIONS FOR COVID MAINTAINED. PT USUALLY NEEDS SEBASTIAN TO BE MOVED TO CHAIR AT THIS TIME. REPEAT COVID-19 TESTING PENDING AT THIS TIME; SAMPLE SENT TO LAB.
[2020-02-26 06:35] VITALS: BP 102/56
[2020-02-26 07:00] LABS: HEMATOCRIT 36.5 % (42.0-52.0); HEMOGLOBIN 12.3 gm/dL (14.0-18.0); MCH 29.6 pg (26.0-34.0); MCHC 33.8 g/dL (28.0-37.0); MCV 87.6 fL (80.0-100.0); MPV 9.4 fl. (7.2-11.1); NUCLEATED RBCS 0 /100WBC; PLATELET COUNT* 239 thou/uL (150-400); RBC 4.16 mil/uL (4.50-6.00); RDW-CV 19.4 % (10.5-14.5); WBC 11.7 thou/uL (4.0-11.0)
[2020-02-26 07:14] LABS: ALBUMIN 2.4 g/dL (3.4-5.0); CALCIUM 8.7 mg/dL (8.5-10.1); CREATININE 1.1 mg/dL (0.6-1.3); MAGNESIUM 1.8 mg/dL (1.8-2.4); POTASSIUM 3.7 mmol/L (3.5-5.1); TOTAL BILIRUBIN 0.5 mg/dL (<0.1-1.0); TOTAL PROTEIN 6.3 g/dL (6.4-8.2)
[2020-02-26 07:30] LABS: ABSOLUTE EOSINOPHILS 0.1 thou/uL (0.0-0.7); ABSOLUTE LYMPHOCYTES 1.5 thou/uL (0.8-5.3); ABSOLUTE MONOCYTES 0.7 thou/uL (0.0-1.2); ABSOLUTE NEUTROPHILS 9.4 thou/uL (1.6-8.1); METAMYELOCYTES 3 %; PLATELET ESTIMATE ADEQUATE
[2020-02-26 08:13] VITALS: BP 123/88
[2020-02-26 12:07] VITALS: BP 132/56
--- NOTE | 2020-02-26 12:27 | NUR ---
CM spoke with Pt's , per , [facility] called her and informed her that Pt is more appropriate for skilled. CM spoke with Berenice this morning from [facility] to fax updated therapy notes when available. CM discussed skilled with , if Pt continues to not qualify for ARU, would want [facility]. CM spoke with Cristiana at [facility], they will consider Pt once he has 2 negative covids. CM to fax initial referral to [facility].
--- NOTE | 2020-02-26 15:54 | 2DMMODE ---
[place] [address] 2 D/M-MODE ECHOCARDIOGRAM Name: STEPHANIE NARANJO Room: [address] IN [facility]#: [id number] Admission: 01/31/20 Attend Phys: Barry Napier, Discharge: Date of : 47 Date of Service: 02/26/20 1554 Report #: [id number] THIS REPORT FOR: cc: James Estrada MD, Anthony MD Blick,Jason Kimble MD [facility] ~ APPROVED REPORT Study performed: 02/26/2020 10:54:46 EXAM: Limited 2D Echocardiogram Patient Location: In-Patient Room #: 200 Status: routine BSA: 2.52 HR: 78 bpm BP: 123/88 mmHg Rhythm: NSR Other Information Study Quality: Good Indications Dyspnea Left Ventricle The left ventricle is normal size. There is normal LV segmental wall motion. There is normal left ventricular wall thickness. The left ventricular systolic function is normal. The left ventricular ejection fraction is within the normal range. LVEF is 55-60%. Right Ventricle The right ventricle is normal size. The right ventricular systolic function is normal. Atria The left atrium size is normal. The right atrium size is normal. Aortic Valve The aortic valve is normal in structure. Mitral Valve The mitral valve is normal in structure. [facility] [address] [place] [address] 2 D/M-MODE ECHOCARDIOGRAM Name: STEPHANIE NARANJO Room: [address] IN .R.#: [id number] Admission: 01/31/20 Attend Phys: Barry Napier, Discharge: Date of : 47 Date of Service: 02/26/20 1554 Report #: [id number] Tricuspid Valve The tricuspid valve is normal in structure. Pulmonic Valve Pulmonic valve is not well visualized. Great Vessels The aortic root is normal in size. IVC is normal in size and collapses >50% with inspiration. Pericardium There is no pericardial effusion. <Conclusion> The left ventricular systolic function is normal. The left ventricular ejection fraction is within the normal range. There is no pericardial effusion. <ELECTRONICALLY SIGNED> By: Jason Mora MD, FAC 02/26/20 1554 1554 [id number] Jason Mora MD, FAC /INF
[2020-02-26 16:51] VITALS: BP 141/68
--- NOTE | 2020-02-26 18:45 | NUR ---
PT TURNED Q2 HOURS. FRIAS TO DD. ASSIST WITH MEAL SET UP. REMAINS ON ENHANCED PRECAUTIONS PENDING COVID TEST.
[2020-02-26 20:30] VITALS: BP 103/57
[2020-02-27] VITALS: BP 90/40
[2020-02-27 04:52] VITALS: BP 121/52
--- NOTE | 2020-02-27 05:21 | NUR ---
PATIENT PARTIALLY PROGRESSING TOWARDS GOALS: PATIENT REMAINS WEAK ON RIGHT SIDE BUT ENCOURAGED USE OF ARM/HAND. PATIENT ASSISTED IN REPOSITIONING WITH INSTRUCTION. PATIENT EAGER TO WORK WITH THERAPIES TO GET STRONGER. PAIN MANAGED WITH MEDICATION PER MAR AND RELAXATION. CALL LIGHT WITHIN REACH
[2020-02-27 08:00] VITALS: BP 138/55
[2020-02-27 13:21] VITALS: BP 137/66
--- NOTE | 2020-02-27 13:59 | NUR ---
CM spoke with PT, PT recommending ARU. TERE spoke with Berenice at [facility], faxed updated therapy notes, [facility] to review and reconsider Pt for ARU. Awaiting decision.
[2020-02-27 17:08] VITALS: BP 91/63
--- NOTE | 2020-02-27 18:30 | NUR ---
called into patients room to answer call light patient coughing and coking on rice from dinner hob raised more suction yaunker set up and rt called to room to assist patient suctioned and cleaned up o2 sats checked 92% on 2l nc dr notified and orders for pcxr will continue to monitor
[2020-02-27 20:00] VITALS: BP 126/52
[2020-02-28 00:40] VITALS: BP 139/61
[2020-02-28 04:30] VITALS: BP 135/69
--- NOTE | 2020-02-28 05:11 | NUR ---
PT A&O 3-4, FORGETFUL AT TIMES. O2 SAT 93-95% ON 2L BY NC WITH BUBBLER. LUNGS CLEAR. AFEBRILE. NPO D/T ASPIRATION. ALTAGRACIA, INSURANCE DEFENSE ATTORNEY IN PLACE. ISOLATION MAINTAINED. WILL CONTINUE TO MONITOR.
--- NOTE | 2020-02-28 07:05 | NUR ---
change of shift bedsisde report given patient seen at bedside, in bed asleep assumed patient care
[2020-02-28 08:00] VITALS: BP 125/48
--- NOTE | 2020-02-28 11:41 | NUR ---
Per , Pt o2 needs down to 2L. Working with therapies. ST to reeval. CM to updated on POC. Continues to be covid positive. Awaiting final decision from [facility] regarding ability to accept vs SNF at [facility].
--- NOTE | 2020-02-28 15:53 | NUR ---
WOUND NURSE: PATIENT SEEN FOR FOLLOW UP ASSESSMENT PERTAINING TO WOUND ON BUTTOCKS, SACRUM COCCYX, GLUTEAL CREASE. MEASURES 12 X 15 X 0.2 CM. PRESENTS WITH SHALLOW EROSION ALONG THE PERIMETER, TO LIGHT WALSH TO BLACK ESCHAR EXTENDING FROM THE CREASE. THERE IS MODERATE AMOUNT OF SEROUSANGUINOUS DRAINAGE NOTED. UNABLE TO TO DETERMINE DEPTH WHERE THERE IS ATTACHED ESCHAR. CLEANSED WITH SOAP AND WATER, RINSED, THEN PATTED DRY. APPLIED IODOSORB GEL AT RECOMMENDATION OF DR. DILLARD, THEN COVERED WITH AQUACEL UNDER A SACRAL BORDERED FOAM DRESSING. THIS WAS TOLERATED WELL BY THE PATIENT. EXPLAINED NEED TO REPOSITION OFF SUPINE POSITION TO THE PATIENT WITH GOOD UNDERSTANDING ACHIEVED. ALSO DISCUSSED IMPORTANCE OF GOOD NUTRITION TO PROMOTE HEALING AND PATIENT STATES HE UNDERSTANDS.
[2020-02-28 20:00] VITALS: BP 130/52
[2020-02-28 22:56] LABS: HEMATOCRIT 32.6 % (42.0-52.0); HEMOGLOBIN 11.4 gm/dL (14.0-18.0); MCH 30.4 pg (26.0-34.0); MCHC 35.1 g/dL (28.0-37.0); MCV 86.7 fL (80.0-100.0); MPV 8.9 fl. (7.2-11.1); RBC 3.76 mil/uL (4.50-6.00); RDW-CV 19.3 % (10.5-14.5); WBC 10.8 thou/uL (4.0-11.0)
[2020-02-28 23:03] LABS: CALCIUM 8.2 mg/dL (8.5-10.1); CREATININE 1.2 mg/dL (0.6-1.3); MAGNESIUM 1.4 mg/dL (1.8-2.4); POTASSIUM 3.9 mmol/L (3.5-5.1)
[2020-02-29 04:00] VITALS: BP 128/82
[2020-02-29 08:00] VITALS: BP 123/60
--- NOTE | 2020-02-29 08:02 | NUR ---
ASSUMED CARE OF PT AFTER REPORT AT 1930. PT A&OX4. FORGETFUL. VSS. PHYSICAL ASSESSMENT COMPLETED AND CHARTED. PT OM O2 AT 1L NC/CPAP AT HS. PT ON MEDSURG STATUS. PT WITH FRIAS TO DEPENDENT DRAIN. PT DENIES ANY PAIN. PT REQUESTED FOR SLEEPING PILL. MAGNESIUM 1.4. DR AUGUSTINE MADE AWARE. PT ABLE TO SLEEP WELL ON BED. MAINTAINED ON ENHANCED ISOLATION. CALL LIGHT WITHIN REACH.
--- NOTE | 2020-02-29 15:46 | NUR ---
ASSUMED CARE OF PATIENT THIS AM AT 0730. PATIENT IS ALERT AND ORIENTED X 4. HE C/O BACK PAIN THIS AM. PATIENT MEDICATED FOR PAIN X 1 PO TODAY. HE SAID THAT MEDICATION WAS EFFECTIVE. BLOOD SUGARS MONITORED. PATIENT HAS NOT WANTED TO WEAR O2. O2 SAT 92 TO 93% ON ROOM AIR. PATIENT ASSISTED WITH MEALS AND WITH TURNING. HE CONTINUES IN ISOLATION FOR COVID. COVID SWAB SENT. RAPID RESULT NEGATIVE. WILL CONTINUE TO MONITOR.
--- NOTE | 2020-02-29 16:42 | NUR ---
ASSUMED CARE OF PATIENT THIS AM AT 0730. PATIENT IS ALERT AND ORIENTED X 4. HE C/O PAIN IN HIS BACK THIS AM. PATIENT MEDICATED FOR PAIN X 1. ASSISTED TO TURN Q 2 HR AND WITH MEALS AND ADLS. PATIENT CONTINUES IN ISOLATION FOR POSITIVE COVID. HE REMAINS IN A BARIATIC BED. WILL CONTINUE PLAN OF CARE. PATIENT HAS A LARGE DECUB TO HIS BUTTUCKS WITH SEROUS DRAINAGE.
[2020-02-29 20:00] VITALS: BP 123/56
[2020-03-01 04:00] VITALS: BP 128/59
--- NOTE | 2020-03-01 07:29 | NUR ---
ASSUMED CARE OF PT AFTER REPORT AT 1930. PT A&OX4. FORGETFUL. VSS. PHYSICAL ASSESSMENT COMPLETED AND CHARTED. PT ON RA/CPAP AT HS. PT ON MEDSURG STATUS. PT COMPLAINED OF BACK-MED GIVEN PER MAR. PT ABLE TO SLEEP WELL ON BED. PENDING COVID RESULT. CALL LIGHT WITHIN REACH.
[2020-03-01 08:00] VITALS: BP 131/67
--- NOTE | 2020-03-01 13:18 | NUR ---
ASSUMED CARE OF PATIENT THIS AM AT 0730. PATIENT IS ALERT, WITH C/O BACK AND RIGHT ARM PAIN. RIGHT ARM IS SWOLLEN FROM THE ELBOW TO THE FINGERTIPS 3+ AND IS PAINFUL TO TOUCH. PATIENT REMAINS ON ROOM AIR. O2 SATS > 92%. PATIENT ENCOURAGED TO TURN Q 2 HR. PATIENT CONTINUES WEAK TODAY. PATIENT HAS VOIDED A SMALL AMOUNT OF LIGHT YELLOW URINE. WILL CONTINUE TO MONITOR PATIENT PROGRESS.
[2020-03-01 20:00] VITALS: BP 106/58
[2020-03-02] VITALS: BP 119/57
[2020-03-02 07:16] LABS: CALCIUM 8.4 mg/dL (8.5-10.1); CREATININE 1.1 mg/dL (0.6-1.3); MAGNESIUM 1.3 mg/dL (1.8-2.4); POTASSIUM 3.5 mmol/L (3.5-5.1)
--- NOTE | 2020-03-02 07:51 | NUR ---
ASSUMED CARE OF PT AFTER REPORT AT 1930. PT A&0X4. VSS. PHYSICAL ASSESSMENT COMPLETED AND CHARTED. PT ON RA/CPAP AT HS. PT ON MEDSURG STATUS. PT COMPLAINED OF RIGHT SHOULDER & BACK PAIN-MED GIVEN PER OCT. PT ABLE TO SLEEP WELL ON BED. CALL LIGHT WITHIN REACH.
[2020-03-02 08:00] VITALS: BP 128/52
--- NOTE | 2020-03-02 09:42 | NUR ---
WOUND NURSE: PATIENT SEEN WITH DR. NISHANT DO TO ASSESS AND TREAT WOUND ON SACRUM, COCCYX, AND BUTTOCKS. REMAINS UNSTAGEABLE D/T >60% BLACK AND YELLOW ESCHAR IN THE WOUND BED. SURROUNDING THIS TISSUE, THERE IS PARTIAL THICKNESS TISSUE LOSS AND DEPTH MEASUREMENT REFLECTS THIS AREA OF THE WOUND. THERE IS A MODERATE AMOUNT OF SEROUSANGUINOUS DRAINAGE AND NO ODOR ASSOCIATED. THERE IS MILD INDURATION AROUND THE ESCHAR NOTED. PATIENT NOT REPORTING PAIN DURING CARE PROVIDED. CURRENTLY MEASURES 13.5 X 12.5 X 0.2 CM. AFFECTED AREA WAS CLEANSED WITH WOUND CLEANSER AND GAUZE, THEN APPLIED IODOSORB GEL UNDER AQUACEL UNDER SACRAL BORDERED FOAM DRESSING AND ONE 4X4 BORDERED FOAM DRESSING. THIS WAS TOLERATED WELL BY THE PATIENT. PATIENT REINSTRUCTED ON IMPORTANCE OF SIDE TO SIDE REPOSITION AND NUTRITIONAL REQUIREMENTS TO PROMOTE HEALING. PATIENT STATES HE UNDERSTANDS. PATIENT WAS REPOSITIONED ONTO HIS LEFT SIDE AND SUPPORTED USING PILLOWS AND WEDGES.
--- NOTE | 2020-03-02 10:51 | NUR ---
Following through dc. Pt had a negative rapid covid, awaiting PCR. Pt will need 2 negative covids, prior to [facility] vs [facility]. CM spoke with and updated today. requesting call from , TERE updated Following.
--- NOTE | 2020-03-02 12:47 | NUR ---
ASSUMED PT CARE AT 0730, PT RESTING IN BED, AOX4 BUT SOMETIMES FORGETFUL. PT C/O BACK PAIN THIS MORNING, REMINDED HIM THAT HE JUST HAD HIS PAIN MED BEFORE SHIFT CHANGE AND EDUCATED PT ON PAIN MANAGEMENT AND HOW OFTEN HE CAN HAVE PAIN MEDS. PT C/O PAIN THIS AFTERNOON WELL, TREATED W/ PRN TRAMADOL W/ SOME RELIEF. PT REFUSED STOOL SOFTENERS THIS MORNING, STATES THEY GIVE HIM DIARRHEA. PT IS BEING TURNED Q2H AND DRESSING ON BACK REPLACED BY WOUND CARE NURSE THIS MORNING. PT GOAL IS TO WORK ON PAIN MANAGEMENT AND REMAIN FREE FROM FURTHER SKIN BREAKDOWN. PT STILL IN ISO FOR COVID, LAST COVID TEST CAME BACK NEGATIVE BUT STILL AWAITING SECOND NEGATIVE TO CLARIFY. AM ASSESSMENT CHARTED, MEDS PER MAR, HOURLY ROUNDING OBSERVED, FALL PRECAUTIONS IN PLACE, PT ON SPECIALTY BED, CALL LIGHT W/IN REACH, WILL CONTINUE POC.
[2020-03-02 17:06] VITALS: BP 120/59
--- NOTE | 2020-03-02 17:33 | NUR ---
NO ACUTE CHANGES THROUGHOUT SHIFT, SECOND COVID TEST CAME BACK POSITIVE. PT KEPT SATS ABOVE 92% AND HAD NO FURTHER C/O PAIN THIS AFTERNOON. MAG CURRENTLY INFUSING, ALMOST FINISHED. MEDS PER MAR, HOURLY ROUNDING OBSERVED, FALL PRECAUTIONS IN PLACE, CALL LIGHT W/IN REACH, PT TURNED Q2H, WILL CONTINUE POC.
[2020-03-03] VITALS: BP 167/95
--- NOTE | 2020-03-03 01:59 | NUR ---
ASSUMED CARE OF PT AT 1900. PT IS ALERT AND ORIENTED. VSS. JOANIE. PT IS MED SURG. PT IS SLEEPING COMFORTABLY IN BED. RESPIRATIONS ARE EVEN AND NONLABORED. WILL CONTINUE TO MONITOR PT.
[2020-03-03 04:00] VITALS: BP 125/64
[2020-03-03 08:00] VITALS: BP 138/35
--- NOTE | 2020-03-03 12:03 | NUR ---
Pt's second covid came back positive. Continue to await 2 negative covid tests prior to ARU or SNF being able to accept Pt. Following
--- NOTE | 2020-03-04 03:56 | NUR ---
ASSUMED CARE OF PT AT 1900. PT IS ALERT AND ORIENTED. VSS. JOANIE. PT IS MED SURG STATUS. WOUND CARE COMPLETED. PT IS SLEEPING QUIETLY IN BED. RESPIRATIONS ARE EVEN AN NONLABORED. WILL CONTINUE TO MONITOR PT.
[2020-03-04 08:02] VITALS: BP 147/66
--- NOTE | 2020-03-04 13:53 | NUR ---
Continue to await 2 negative covids prior to ARU vs SNF dc.
[2020-03-04 16:00] VITALS: BP 125/64
--- NOTE | 2020-03-04 16:50 | NUR ---
PT REMAINS ON ENHANCED PRECAUTIONS FOR COVID. SEEN BY PT TODAY. OT WILL SEE TOMARROW. PRN PAIN MEDICATION GIVEN PER PT REQUEST.
--- NOTE | 2020-03-05 08:53 | NUR ---
WOUND NURSE: ASSISTED DR. DILLARD WITH DRESSING CHANGE TO SACRALCOCCYGEAL GLUTEAL COVID RELATED PRESSURE INJURY. REMAINS UNSTAGEABLE AND DEPTH REPORTED REFLECTS AREA OF WOUND THAT IS NOT ESCHAR COVERED. APPROX 40% OF WOUNDED AREA COVERED WITH THINNING BEIGE ESCHAR, 40% PINK, PARTIAL THICKNESS TISSUE LOSS, 20% INTACT EPITHELIAL TISSUE. CLEANSED SEE INTERVENTION FOR CARE PROVIDED. PATIENT REINSTRUCTED ON IMPORTANCE OF REPOSITIONING OFF WOUNDED AREA. PATIENT STATES HE UNDERSTANDS. PATIENT WAS PLACED INTO SITTING POSITION SO HE CAN EAT BREAKFAST NOW.
--- NOTE | 2020-03-05 09:17 | NUR ---
CM spoke with Pt's . is concerned that Pt is not getting up and out of bed enough. Pt now has a wound, wound care following. CM asked that PT/OT both try and see Pt daily and asked that nursing attempt to get him up to the chair more frequently. Updated Dr and nurse. Following.
--- NOTE | 2020-03-05 18:45 | NUR ---
ASSUMED PT CARE AT 0730. ASSESSMENT COMPLETED CHARTED. ABLE TO MAKE NEEDS KNOWN. UP IN CHAIR POSITION IN THE BED. WOUND ON BOTTOM CHANGED TODAY BY WOUND CARE AND SURGICAL TEAM. C/O BOTTOM PAIN AND GAVE PRN PAIN MEDS PER EMAR. Q2TURN COMPLETED CHARTED. WILL CONTINUE TO MONITOR.
[2020-03-05 20:00] VITALS: BP 120/57
--- NOTE | 2020-03-05 20:00 | NUR ---
RECEIVED REPORT AND ASSUMED CARE OF PT, ASSESSMENT COMPLETED. PT REMAINS IN ISOLATION. DISCUSSED WITH PT NEED TO COMBINE REQUESTS RATHER THEN SPREADING THEM OUT. ENCOURAGED TO DO ANKLE PUMPS AND MOVING LEGS MUCH CAN TOLERATE. TRIOLOGY ON, HOB ELEVATED. VOIDING WELL PER URINAL. EATING HS BOX MEAL. NO COMPLAINTS VOICED. WILL CONT TO MONITOR AND ASSIST NEEDED.
--- NOTE | 2020-03-06 06:36 | NUR ---
SLEPT WELL ALL NIGHT. ABLE TO WIGGLE SELF IN BED FOR COMFORT BUT ASSISTED WITH TURNING. WORE TRIOLOGY ALL NIGHT. NO CHANGE IN ASSESSMENT. HS GOALS OF REST AND SAFETY ACHIEVED. HOURLY ROUNDING OBSERVED.
[2020-03-06 08:00] VITALS: BP 126/45
--- NOTE | 2020-03-06 14:19 | NUR ---
Plan covid retest next week, continue to need 2 negatives prior to dc to either ARU or SNF.
[2020-03-06 16:00] VITALS: BP 132/61; BP 138/75
[2020-03-06 20:00] VITALS: BP 116/62
[2020-03-07] VITALS: BP 129/54
--- NOTE | 2020-03-07 05:35 | NUR ---
ASSUMED PT CARE AT APPROX 1930. PT IS AWAKE AND ORIENTED X4. PT IS NOT IN RESPIRATORY DISTRESS. NO DESATURATIONS ON 3L OF O2/NC. PT WEARS TRILOGY AT HS. POSITION CHANGES DONE Q2H AND NEEDED. PT HAS SOME EPISODES OF INCONTINENCE. PT IS KEPT CLEAN AND DRY. WOUND CARE DONE. NO ACUTE CHANGES OVERNIGHT. CALL LIGHT WITHIN REACH. HOURLY ROUNDING DONE FOR PT SAFETY.
[2020-03-07 10:50] VITALS: BP 129/53
--- NOTE | 2020-03-07 18:00 | NUR ---
RECEIVED REPORT. ASSUMED CARE OF PT AROUND 0730. PT A&O X4. AM ASSESSMENT AND VITALS COMPLETED CHARTED. MEDS PER EMAR. M/S STATUS. PT VOIDING PER URINAL. INCONTINENET WELL - PT CLEANED AND LINENS CHANGED. PT SPOKE WITH MULTIPLE TIMES THIS SHIFT. SDE ALSO VISITED WITH . PT TURNED Q2HRS. APPETITE GOOD. PT WORKING ON HIS BED MOBILITY. UNABLE TO GET UP THIS SHIFT. DRESSING TO SACRAL WOUND REDRESSED TODAY. BM THIS AFTERNOON. COVID RETEST SENT DOWN TO LAB. PT CURRENTLY WATCHING TV IN BED. CALL LIGHT IS WITHIN REACH. HOURLY ROUNDING PERFORMED. FALL PRECAUTIONS IN PLACE.
[2020-03-07 20:00] VITALS: BP 116/47
--- NOTE | 2020-03-08 02:56 | NUR ---
PT A+O X4. CALM AND COOPERATIVE. MEDS SURG STATUS. NO C/O PAIN. INSULIN GIVEN @ BEDTIME, BEDCHANGE @ BEGINNING OF SHIFT-INCONTINENT, CALL LIGHT IN REACH. HOURLY ROUNDING FOR SAFETY.
[2020-03-08 08:00] VITALS: BP 122/56
--- NOTE | 2020-03-08 08:00 | NUR ---
ASSUMED CARE OF PATIENT THIS MORNING FROM NIGHT NURSE. PT IS DOING WELL TODAY, HIS CO OF PAIN ARE WELL CONTROLLED WITH PO PAIN MEDICATIONS. HE WAS EDUCATED ON POC, DISEASE PROCESS AND USING THE CALL LIGHT FOR ASSISTANCE. WILL CONTINUE TO MONITOR. FALL SAFETY EDUCATION GIVEN, CALL LIGHT IN REACH.
[2020-03-08 12:00] VITALS: BP 130/60
[2020-03-08 16:00] VITALS: BP 120/50
[2020-03-08 22:00] VITALS: BP 119/61
--- NOTE | 2020-03-09 04:49 | NUR ---
No acute event this shift. Pt AOX4, pt complains of back pain, meds given with relief. Pt trilogy on. Pt wound checked, dressing changed, picture taken file on chart. Reposition observed, pt can turn with minimal assist. Cluster care. Enhanced isolation maintained. Call light within reach, Will continue to monitor.
[2020-03-09 07:57] VITALS: BP 112/63
--- NOTE | 2020-03-09 09:41 | NUR ---
ASSUMED PT CARE AT 0730, PT AOX4 BUT SOMETIMES FORGETFUL AND C/O PAIN TO LOWER BACK, EDUCATED PT THAT IT IS TOO SOON TO GIVE PAIN MEDS AND WE REPOSITIONED PT AND PROVIDED BREAKFAST. PT HAS NO C/O SHORTNESS OF BREATH AND WAS WEARING BIPAP ORIGINALLY BUT SWITCHED SELF TO NC TO EAT, SAT ABOVE 92%. PT IN ISO FOR POSITIVE COVID, WOUND ON SACRUM W/ DRESSING IN PLACE, PICS IN CHART, PT BEING TURNED Q2H TO PREVENT FURTHER SKIN BREAKDOWN. PT GOAL IS TO REMAIN FREE FROM FURTHER SKIN BREAKDOWN AND KEEP SATS ABOVE 92%. AM ASSESSMENT CHARTED, MEDS PER MAR, HOURLY ROUNDING OBSERVED, FALL PRECAUTIONS IN PLACE, PT ON SPECIALTY LOW AIR LOSS MATTRESS, CALL LIGHT W/IN REACH, WILL CONTINUE POC.
[2020-03-09 14:05] VITALS: BP 112/64
--- NOTE | 2020-03-09 14:23 | NUR ---
Continue to await 2 negative covid tests, plan ARU vs. SNF
--- NOTE | 2020-03-09 14:54 | NUR ---
ADMISSION ASSESSMENT AND HISTORY DOCUMENTED ON INCORRECT PT- IGNORE CHARTING-REFER TO UN-DO FEATURE.
[2020-03-09 16:57] VITALS: BP 110/57
--- NOTE | 2020-03-09 17:50 | NUR ---
NO ACUTE CHANGES THROUGHOUT SHIFT, PT TURNED Q2H, DRESSING STILL IN TACT ON SACRUM W/ PURULENT DRAINAGE NOTED ON DRESSING. PT KEPT SATS IN UPPER 90'S ALL DAY, WEARS 2L IN THE DAYTIME AND BIPAP AT NIGHT, WHICH IS WHAT HE DOES AT HOME WELL. PT COVID SWAB CAME BACK POSITIVE AGAIN, CALLED AND UPDATED ON POSITIVE TEST. MEDS PER MAR, HOURLY ROUNDING OBSERVED, FALL PRECAUTIONS IN PLACE, CALL LIGHT W/IN REACH, WILL CONTINUE POC.
[2020-03-09 20:00] VITALS: BP 113/58
--- NOTE | 2020-03-09 20:00 | NUR ---
RECEIVED REPORT AND ASSUMED CARE OF PT, ASSESSMENT COMPLETED. O2 ON PER TRIOLOGY, HOB ELEVATED. ENCOURAGED PT TO ASSIST WITH REPOSITONING AND EXERCISING LEGS/ARMS. VOIDING WELL PER URINAL. NO COMPLAINTS VOICED AT THIS TIME. WILL CONT TO MONITOR AND ASSIST NEEDED. REMAINS IN ENHANCED ISOLATION.
[2020-03-09 23:12] LABS: HEMATOCRIT 30.3 % (42.0-52.0); HEMOGLOBIN 10.4 gm/dL (14.0-18.0); MCH 30.2 pg (26.0-34.0); MCHC 34.4 g/dL (28.0-37.0); MCV 87.9 fL (80.0-100.0); NUCLEATED RBCS 0 /100WBC; PLATELET COUNT* 272 thou/uL (150-400); RBC 3.45 mil/uL (4.50-6.00); RDW-CV 19.2 % (10.5-14.5); WBC 7.4 thou/uL (4.0-11.0)
[2020-03-09 23:43] LABS: ALBUMIN 2.3 g/dL (3.4-5.0); CALCIUM 8.6 mg/dL (8.5-10.1); CREATININE 1.3 mg/dL (0.6-1.3); MAGNESIUM 1.4 mg/dL (1.8-2.4); PHOSPHORUS* 3.2 mg/dL (2.5-4.9); POTASSIUM 3.9 mmol/L (3.5-5.1); TOTAL BILIRUBIN 0.3 mg/dL (<0.1-1.0); TOTAL PROTEIN 5.9 g/dL (6.4-8.2)
[2020-03-10] VITALS: BP 139/60
[2020-03-10 04:13] LABS: ABSOLUTE EOSINOPHILS 0.4 thou/uL (0.0-0.7); ABSOLUTE LYMPHOCYTES 2.1 thou/uL (0.8-5.3); ABSOLUTE MONOCYTES 0.7 thou/uL (0.0-1.2); ABSOLUTE NEUTROPHILS 4.3 thou/uL (1.6-8.1); ANISOCYTOSIS 1+; ATYPICAL LYMPHS 2 %; PLATELET ESTIMATE ADEQUATE
[2020-03-10 04:14] LABS: CLUMPED PLTS FEW; LARGE PLATELETS OCCASIONAL
[2020-03-10 05:46] LABS: HEMATOCRIT 30.8 % (42.0-52.0); HEMOGLOBIN 10.6 gm/dL (14.0-18.0); MCH 30.1 pg (26.0-34.0); MCHC 34.3 g/dL (28.0-37.0); MCV 87.9 fL (80.0-100.0); MPV 8.3 fl. (7.2-11.1); RBC 3.51 mil/uL (4.50-6.00); RDW-CV 19.3 % (10.5-14.5); WBC 6.8 thou/uL (4.0-11.0)
--- NOTE | 2020-03-10 06:47 | NUR ---
SLEPT WELL TONIGHT. DIFFICULTY WITH URINAL WHEN SLEEPY AND SM PENIS. DRSG TO SACRAL AREA SATURATED SO REMOVED. PT ASSIST WITH REPOSITIONING. NO CHANGE IN ASSESSMENT. HS GOALS OF REST AND SAFETY ACHIEVED. HOURLY ROUNDING OBSERVED.
[2020-03-10 08:00] VITALS: BP 118/53
--- NOTE | 2020-03-10 11:11 | NUR ---
Continue to await 2 negative covids, [place]
--- NOTE | 2020-03-10 11:15 | NUR ---
ASSUMED PT CARE AT 0730, PT AOX4 BUT SOMETIMES FORGETFUL. PT C/O PAIN TO LOWER BACK, TOO SOON FOR PAIN MEDS SO WE TRIED COMFORT FOOD AND REPOSITIONING W/ SOME RELIEF. PT HAD NO C/O SHORTNESS OF BREATH AND CURRENTLY ON 2L NC, WHICH HE WEARS IN THE DAYTIME AT HOME WELL. PT IN ISO FOR POSITIVE COVID TEST. PT IS BEING TURNED Q2H. PT GOAL IS TO HAVE DRESSING CHANGED ON SACRUM AND REMAIN FREE FROM FURTHER SKIN BREAKDOWN. AM ASSESSMENT CHARTED, MEDS PER MAR, HOURLY ROUNDING OBSERVED, FALL PRECAUTIONS IN PLACE, PT ON SPECIALTY BARIATRIC BED, CALL LIGHT W/IN REACH, WILL CONTINUE POC
[2020-03-10 16:00] VITALS: BP 141/58
--- NOTE | 2020-03-10 19:11 | NUR ---
NO ACUTE CHANGES THROUGHOUT SHIFT, DRESSING CHANGED ON SACRUM WOUND AND PT TURNED Q2H. PT HAD SOME C/O PAIN TREATED W/ PRN TRAMADOL W/ SOME RELIEF. MEDS PER MAR, HOURLY ROUNDING OBSERVED, FALL PRECAUTIONS IN PLACE, CALL LIGHT W/IN REACH, WILL CONTINUE POC. CALLED AND UPDATED ON POC.
[2020-03-10 20:00] VITALS: BP 137/65
--- NOTE | 2020-03-10 20:00 | NUR ---
RECEIVED REPORT AND ASSUMED CARE OF PT, ASSESSMENT COMPLETED. PT SLEEPING, DOES NOT STAY AWAKE AFTER BEING WOKE UP. O2 ON AT 2L/NC. WILL CONT TO MONITOR AND ASSIST NEEDED.
[2020-03-11 00:30] VITALS: BP 123/56
[2020-03-11 04:00] VITALS: BP 112/91
[2020-03-11 05:30] LABS: HEMATOCRIT 32.5 % (42.0-52.0); MCH 29.7 pg (26.0-34.0); MCHC 33.8 g/dL (28.0-37.0); MPV 8.2 fl. (7.2-11.1); RBC 3.69 mil/uL (4.50-6.00); RDW-CV 19.1 % (10.5-14.5)
[2020-03-11 05:46] LABS: ALBUMIN 2.3 g/dL (3.4-5.0); CALCIUM 8.5 mg/dL (8.5-10.1); CREATININE 1.3 mg/dL (0.6-1.3); MAGNESIUM 1.4 mg/dL (1.8-2.4); POTASSIUM 3.6 mmol/L (3.5-5.1); TOTAL BILIRUBIN 0.4 mg/dL (<0.1-1.0); TOTAL PROTEIN 6.1 g/dL (6.4-8.2)
--- NOTE | 2020-03-11 05:59 | NUR ---
SLEPT ALL NIGHT. GRUMPY WHEN AWAKEN. REPOSITIONED FROM SIDE TO SIDE. INCONT OF URINE VS NOT ABLE TO USE URINAL. SACRAL DRSG INPLACE BUT DOES GET WET WITH URINE. HS BOX MEAL GIVEN DUE TO LOW BS. TEMP REMAINS ELEVATED ALL NIGHT, DR AUGUSTINE MADE AWARE WITH ORDERS RECEIVED. O2 ON AT 3L PER TRIOLOGY, HOB ELEVATED. HS GOALS OF REST AND SAFETY ACHIEVED. HOURLY ROUNDING OBSERVED.
[2020-03-11 06:32] LABS: URINE BILIRUBIN NEGATIVE (Negative); URINE BLOOD NEGATIVE (Negative); URINE CLARITY CLEAR; URINE COLOR YELLOW; URINE GLUCOSE-RANDOM NEGATIVE (Negative); URINE KETONES NEGATIVE (Negative); URINE LEUKOCYTES-REFLEX NEGATIVE (Negative); URINE NITRITE-REFLEX NEGATIVE (Negative); URINE PROTEIN NEGATIVE (Negative); URINE UROBILINOGEN 0.2 E.U./dl (0.2-1.0)
[2020-03-11 08:00] VITALS: BP 129/60
--- NOTE | 2020-03-11 11:17 | NUR ---
Pt continues to be covid positive. Febrile overnight. Continue to await 2 negative covid tests.
--- NOTE | 2020-03-11 18:23 | NUR ---
ASSUMED PT CARE AT 0730, PT LETHARGIC AND LAST BLOOD SUGAR CHECKED WAS AROUND 60, APPLE JUICE W/ SUGAR GIVEN TO PT AND SUGARS RECHECKED AT 89 SO MORNING LONG ACTING INSULIN WAS GIVEN BUT NO SHORT ACTING. PT SUGARS HIGH THE REST OF THE SHIFT. PT HAS WOUND ON SACRUM THAT ISN'T HEALING VERY WELL BECAUSE PT IS INCONTINENT OF URINE AND THE DRESSING ON THE WOUND CONTINUES TO BECOME SATURATED ENOUGH TO IRRITATE WOUND, DRESSING CHANGED AND CONSULTED, ORDERS RECEIVED FOR FRIAS INSERTION WHICH IS IN NOW AND DRAINING CLEAR YELLOW URINE. PT HAD A FEVER OF 101.1 THIS MORNING, PRN TYLENOL GIVEN AND CONSULTED, ORDERS RECEIVED TO OH PICC WHICH HAS BEEN IN FOR 1 MO TODAY, IV ABX, CULTURE OF PICC, MRSA SWAB AND SPUTUM CULTURE. MRSA SWAB COLLECTED AND SENT TO LAB, TIP OF PICC SENT TO LAB AND 3 NEW IV'S INSERTED BY ERIC INFUSION NURSE, ONE OF THOSE IV'S FELL OUT, 2 REMAIN. IV ABX AND LR CURRENTLY INFUSING. PT GOT CLEANED UP TODAY, CALLED AND UPDATED ON POC. PT KEPT O2 SATS ABOVE 92% ALL SHIFT AND HAD NO C/O PAIN OR SHORTNESS OF BREATH. PT MORE AWAKE AND ALERT AFTER BREAKFAST WHEN SUGARS IMRPOVED AND PT REMAINED ALERT AND ORIENTED BUT SOMEWHAT FORGETFUL THE REST OF THIS SHIFT. PT FEVER WENT DOWN AFTER TYLENOL GIVEN TO 99.8. AM ASSESSMENT CHARTED, MEDS PER MAR, HOURLY ROUDING OBSERVED, FALL PRECAUTIONS IN PLACE, PT IN ISO FOR POSITIVE COVID, CALL LIGHT W/IN REACH, WILL CONTINUE POC.
[2020-03-11 18:25] VITALS: BP 117/63
--- NOTE | 2020-03-11 20:00 | NUR ---
RECEIVED REPORT AND ASSUMED CARE OF PT, ASSESSMENT COMPLETED. PT SLEEPING BUT AWAKENS EASILY. ASSISTED WITH REPOSITIONING IN BED. O2 ON AT 2L/NC, HOB ELEVATED. LT ARM IV CAME OUT SO ALL FLUIDS CHANGED TO RT ARM SITE. FRIAS PATENT WITH LG AMT OF URINE. NO COMPLAINTS VOICED AT THIS TIME. WILL CONT TO MONITOR AND ASSIST NEEDED.
[2020-03-11 20:30] VITALS: BP 122/62
[2020-03-12 00:30] VITALS: BP 108/43
--- NOTE | 2020-03-12 05:52 | NUR ---
SLEPT WELL. INCONT OF LG AMT OF STOOL. DRSG SOILED AND CHANGED TO SACRAL AREA. TRIOLOGY ON WITH O2 AT 3L. NO CHANGE IN ASSESSMENT. PT REMAINED ONTO RT MOST OF NIGHT PER HIS REQUEST. HS GOALS OF REST AND SAFETY ACHIEVED. HOURLY ROUNDING OBSERVED.
[2020-03-12 08:00] VITALS: BP 106/43
[2020-03-12 12:00] VITALS: BP 106/43
--- NOTE | 2020-03-12 13:12 | NUR ---
Continue to await 2 negative covids for ARU vs SNF. Pt febrile, line sepsis. Started on IVABX. Repeat covid test ordered for today.
[2020-03-12 14:56] LABS: ABSOLUTE BASOPHILS 0.2 thou/uL (0.0-0.2); ABSOLUTE MONOCYTES 0.6 thou/uL (0.0-1.2); ABSOLUTE NEUTROPHILS 7.6 thou/uL (1.6-8.1); BASOPHILS 1.5 %; EOSINOPHILS 0.4 %; HEMATOCRIT 28.8 % (42.0-52.0); HEMOGLOBIN 10.1 gm/dL (14.0-18.0); LYMPHOCYTES 19.3 %; MCH 30.4 pg (26.0-34.0); MCV 86.8 fL (80.0-100.0); MONOCYTES 5.6 %; MPV 8.1 fl. (7.2-11.1); NUCLEATED RBCS 0 /100WBC; PLATELET COUNT* 321 thou/uL (150-400); POLYS 73.2 %; RBC 3.32 mil/uL (4.50-6.00); RDW-CV 18.6 % (10.5-14.5); WBC 10.3 thou/uL (4.0-11.0)
[2020-03-12 15:04] LABS: CALCIUM 8.6 mg/dL (8.5-10.1); CREATININE 1.2 mg/dL (0.6-1.3); MAGNESIUM 1.6 mg/dL (1.8-2.4); POTASSIUM 4.9 mmol/L (3.5-5.1)
[2020-03-12 16:39] VITALS: BP 116/50
[2020-03-12 20:00] VITALS: BP 136/45
--- NOTE | 2020-03-13 06:27 | NUR ---
ASSUMED PT CARE AT APPROX 1930. PT IS AWAKE AND ORIENTED X4. ASSESSMENT DONE AND CHARTED. PT HAS DEEP TISSUE PRESSURE ULCER ON COCCYX, POSITION CHANGES DONE Q1-2H, PT ON LOW AIRLOSS MATRESS, WOUND CARE AND CHANGE OF DRESSING DONE. NO ACUTE CHANGES OVERNIGHT. PT IS NOT IN RESPIRATORY DISTRESS. CALL LIGHT WITHIN REACH. HOURLY ROUNDING DONE FOR PT SAFETY. HIGH FALL PRECAUTIONS IN PLACE.
[2020-03-13 12:54] VITALS: BP 94/50
--- NOTE | 2020-03-13 14:57 | NUR ---
Pt should be medically stable to dc early/mid next week, ontinue to await 2 negative covids for ARU vs SNF. Pt continues on abx for fever a few days ago.
--- NOTE | 2020-03-13 16:32 | NUR ---
WOUND NURSE: PATIENT SEEN FOR FOLLOW UP ASSESSMENT OF SACRAL, COCCYGEAL, BUTTOCK UNAVOIDABLE STAGE 4 PRESSURE INJURY 2ND TO COVID 19 INFECTION. PRESENTS WITH 11 X 13 X 2.0 CM WOUND WHICH IS FULL THICKNESS EXPOSING YELLOW UNDERLYING TISSUE IN THE BASE OF THE WOUND BED. PERIWOUND HAS IMPROVED AND PRESENTS WITH PINK, NONGRANULATION TISSUE. WOUND WAS CLEANSED WITH SOAP AND WATER, RINSED WITH WATER, THEN PATTED DRY. APPLIED IODOSORB GEL TO WOUNDED AREAS, COVERED WITH AQUACEL UNDER SACRAL BORDERED FOAM AND 4X4 BORDERED FOAM. PATIENT HAD TO BE PLACED BACK IN BED AFTER HE REPORTS HE WAS SITTING UP FOR AN HOUR IN BEDSIDE CHAIR. DO NOT RECOMMEND PATIENT BE PLACED IN BEDSIDE CHAIR, BUT REMAIN ON LOW AIRLOSS MATTRESS WITH Q 1 TO 2 HOUR REPOSITIONING. THERE IS A MODERATE AMOUNT OF YELLOW DRAINAGE NOTED FROM THE WOUND. PATIENT REINSTRUCTED ON THE IMPORTANCE OF OFFLOADING AT ALL TIMES AND NUTRIENT DENSE HIGH PROTEIN DIET. PATIENT STATES HE UNDERSTANDS. ALSO DISCUSSED CORRECT USE OF INCENTIVE SPIROMETER AND HE STATED HE UNDERSTOOD.
[2020-03-13 17:00] VITALS: BP 126/65
--- NOTE | 2020-03-13 18:14 | NUR ---
PT A&OX4, VSS. PT ON PRECAUTION R/T +COVID. PT ON WALT/LOW AIRLOSS MATTRESS FOR WOUNDS. MIDLINE TO LUE. FRIAS FOR I&O, PATENT, YELLOW URINE OBSERVED IN COLLECTION BAG. LG BM X2 THIS SHIFT. CONTINENT OF B/B. PT UP MAX ASSIST/SEBASTIAN. UNABLE TO DRAW LABS FROM PT LINE. LAB AND PHYSICIAN AWARE. COVID SWAB COLLECTED AND SENT TO LAB ORDERED. PT CALLS OUT TO DESK FREQUENTLY WELL CONTACTING AND HAVING HER CALL NURSES STATION. PT REQUESTS MULTIPLE SNACKS AND SANDWICHES BETWEEN MEALS. PT ACCUCHECK, INSULIN ADMIN INDICATED. PT RESTS IN BED WITH CALL LIGHT AND PHONE IN REACH, WILL CONTINUE TO MONITOR.
[2020-03-13 20:00] VITALS: BP 117/51
[2020-03-13 21:42] LABS: ABSOLUTE LYMPHOCYTES 1.6 thou/uL (0.8-5.3); ABSOLUTE MONOCYTES 0.6 thou/uL (0.0-1.2); ABSOLUTE NEUTROPHILS 7.2 thou/uL (1.6-8.1); BASOPHILS 0.2 %; HEMATOCRIT 28.5 % (42.0-52.0); HEMOGLOBIN 9.8 gm/dL (14.0-18.0); MCH 30.1 pg (26.0-34.0); MCHC 34.2 g/dL (28.0-37.0); MCV 87.9 fL (80.0-100.0); MONOCYTES 6.2 %; NUCLEATED RBCS 0 /100WBC; PLATELET COUNT* 335 thou/uL (150-400); POLYS 76.6 %; RBC 3.24 mil/uL (4.50-6.00); RDW-CV 18.3 % (10.5-14.5); WBC 9.3 thou/uL (4.0-11.0)
[2020-03-13 21:55] LABS: ALBUMIN 2.2 g/dL (3.4-5.0); CALCIUM 8.5 mg/dL (8.5-10.1); CREATININE 1.4 mg/dL (0.6-1.3); MAGNESIUM 1.3 mg/dL (1.8-2.4); POTASSIUM 3.8 mmol/L (3.5-5.1); TOTAL BILIRUBIN 0.2 mg/dL (<0.1-1.0)
--- NOTE | 2020-03-14 06:07 | NUR ---
ASSUMED PT CARE AT APPROX 1930. PT IS AWAKE AND ORIENTED X4. ASSESSMENT DONE AND CHARTED. PT HAS DEEP TISSUE PRESSURE ULCER ON COCCYX, POSITION CHANGES DONE Q1-2H, PT ON LOW AIRLOSS MATRESS. NO DESATS NOTED ON 2L/NC. PT WEARS TRILOGY AT HS.NO ACUTE CHANGES OVERNIGHT. PT IS NOT IN RESPIRATORY DISTRESS. CALL LIGHT. WITHIN REACH. HOURLY ROUNDING DONE FOR PT SAFETY. HIGH FALL PRECAUTIONS IN PLACE.
[2020-03-14 06:12] LABS: HEMATOCRIT 32.8 % (42.0-52.0); HEMOGLOBIN 11.1 gm/dL (14.0-18.0); MCH 29.6 pg (26.0-34.0); MPV 7.6 fl. (7.2-11.1); NUCLEATED RBCS 0 /100WBC; PLATELET COUNT* 390 thou/uL (150-400); RBC 3.77 mil/uL (4.50-6.00); RDW-CV 18.5 % (10.5-14.5)
[2020-03-14 06:27] LABS: PHOSPHORUS* 3.2 mg/dL (2.5-4.9)
[2020-03-14 06:29] LABS: ALBUMIN 2.4 g/dL (3.4-5.0); CALCIUM 9.4 mg/dL (8.5-10.1); CREATININE 1.2 mg/dL (0.6-1.3); POTASSIUM 3.5 mmol/L (3.5-5.1); TOTAL BILIRUBIN 0.2 mg/dL (<0.1-1.0); TOTAL PROTEIN 6.2 g/dL (6.4-8.2)
[2020-03-14 08:15] LABS: ABSOLUTE LYMPHOCYTES 3.2 thou/uL (0.8-5.3); ABSOLUTE MONOCYTES 0.7 thou/uL (0.0-1.2); ABSOLUTE NEUTROPHILS 5.1 thou/uL (1.6-8.1)
[2020-03-14 08:16] LABS: ANISOCYTOSIS 1+; PLATELET ESTIMATE ADEQUATE
[2020-03-14 08:17] LABS: OVALOCYTES Occasional; TEARDROPS Occasional
--- NOTE | 2020-03-14 17:55 | NUR ---
PT A&OX4 VSS. PT REMAINS ON COVID PRECAUTIONS. IV ABX ADMINISTERED. MIDLINE TO MACY PATENT, DRESSING C/D/I. PT ACCUCHECK, INSULIN ADMINISTERED DIRECTED. PT ON LOW AIRLOSS MATTRESS, Q2H TURNS FOR SKIN INTEGRITY. PT UP TO BEDSIDE WITH PHYS THERAPY THIS AFTERNOON. TYLENOL PO FOR C/O DISCOMFORT. PT PROVIDED SANDWICH TRAY BETWEEN MEALS REQUESTED. PT RESTING IN BED WITH CALL LIGHT AND PHONE IN REACH. WILL CONTINUE TO MONITOR.
[2020-03-14 20:00] VITALS: BP 123/54
--- NOTE | 2020-03-15 06:53 | NUR ---
ASSUMED PT CARE AT APPROX 1930. PT IS AWAKE AND ORIENTED X4. PT IS NOT IN RESPIRATORY DISTRESS, NO DESATURATIONS NOTED ON 2L OF O2. PT IS ON THE TRILOGY AT HS. POSITION CHANGES DONE. ASSESSMENT CHARTED. NO ACUTE CHANGES THROUGHOUT THIS SHIFT. CALL LIGHT WITHIN REACH. HOURLY ROUNDING DONE. HIGH FALL PRECAUTIONS IN PLACE.
[2020-03-15 08:54] LABS: HEMATOCRIT 30.8 % (42.0-52.0); HEMOGLOBIN 10.6 gm/dL (14.0-18.0); MCHC 34.5 g/dL (28.0-37.0); MCV 86.9 fL (80.0-100.0); MPV 7.4 fl. (7.2-11.1); RBC 3.55 mil/uL (4.50-6.00); RDW-CV 18.2 % (10.5-14.5); WBC 10.1 thou/uL (4.0-11.0)
[2020-03-15 09:19] LABS: ALBUMIN 2.3 g/dL (3.4-5.0); CALCIUM 8.5 mg/dL (8.5-10.1); CREATININE 1.3 mg/dL (0.6-1.3); MAGNESIUM 1.4 mg/dL (1.8-2.4); POTASSIUM 3.5 mmol/L (3.5-5.1); TOTAL BILIRUBIN 0.2 mg/dL (<0.1-1.0); TOTAL PROTEIN 5.9 g/dL (6.4-8.2)
[2020-03-15 16:00] VITALS: BP 132/72
--- NOTE | 2020-03-15 19:20 | NUR ---
PT A&OX4 VSS. PT REMAINS ON ISOLATION R/T COVID. MACY MIDLINE PATENT, FLUIDS AND MEDICATIONS INFUSING AT THIS TIME. FRIAS CATHETER PATENT, YELLOW URINE OBSERVED IN COLLECTION BAG. DRESSING TO SACRAL WOUND CHANGED THIS SHIFT, PHOTO TO CHART. PT ACCUCHECK, INSULIN AND METFORMIN ADMINISTERED ORDERED. PT FRIENDLY AND TALKATIVE WHILE THIS NURSE AND OTHER STAFF WERE AT BEDSIDE FOR CARES. CHARGE NURSE CONTACTED BY WITH C/O POOR CARE. THIS NURSE ASSISTED WITH PT CARES WITH OTHER NURSING STAFF PRESENT W/O FURTHER COMPLAINT. THIS PT THANKED THIS NURSE AT END OF SHIFT AND STATED "HAVE A GOOD NIGHT". PT RESTING IN ROOM WITH CALL LIGHT ANF PHONE IN REACH. ICE PROVIDED REQUESTED. WILL CONTINUE TO MONITOR.
[2020-03-15 20:00] VITALS: BP 135/60
--- NOTE | 2020-03-16 08:29 | NUR ---
PT WAS FREQUENTLY REED CLEANER LIGHT MOST OF SHIFT UNTIL PAST MIDNIGHT; SOMETIMES FREQUENTLY EVERY 2-3 MINUTES FOR THE SAME REQUEST. AT ONE POINT THE PT PUT ON THE CALL LIGHT AFTER BEING INFORMED THE RN WAS WALKING OUT THE ROOM DOOR TO GRAB SOME SUPPLIES OFF THE ISOLATION CART AND PT PUT REED CLEANER LIGHT WHILE THIS RN WAS GRABBING THE SUPPLIES TO TAKE BACK INTO THE ROOM. DISCUSSED APPROPRIATE/INAPPROPRIATE USE OF CALL LIGHT WITH PATIENT WELL APPROPRIATE EXPECTATIONS OF CARE AND PT RESPONSIBITITIES. EXPLAINED THAT STAFF IS NOT ABLE TO PROVIDE/COMPLETE CARE IF PT DOES NOT ALLOW RN TO STEP OUT THE DOOR TO GRAB THE SUPPLIES THAT OTHER STAFF HAD DELIVERED TO PT'S ISOLATION CART TO FINISH CLEANING UP PT'S INCONTINENCE OF BOWEL AND NEW WOUND CARE SUPPLIES TO REDRESS PT'S STAGE 4 TUNNELING COCCYX WOUND. PT STATED HE TURNED HIS CALL LIGHT ON (IN LESS THAN A MINUTE) FOR THIS RN "TO MAKE SURE YOU (THIS RN) WAS COMMING BACK." PT BECAME AGITATED WHEN THIS RN EXPLAINED I COULD NOT PROVIDE APPROPRIATE CARE FOR HIM IF I WASNT ALLOWED TO LEAVE THE ROOM TO GRAB SUPPLIES FROM OUTSIDE THE DOOR ( PT IS IN ISOLATION FOR COVID 19) TO FINISH CLEANING HIS BOWEL MOVEMENT AND REDRESS HIS WOUND. PT BECAME EVEN MORE AGITATED THAN HE ALREADY HAD BEEN THIS SHIFT. PT STATED TO THIS RN "IF YOU ARE GOING TO TALK TO ME LIKE THAT THEN YOU CAN LEAVE THE ROOM." NOTIFIED STAFF INTERNIST OFFICE BASED ONLY AND FOCUSER. ALSO CALLED REED CLEANER WALE GIBBS FOR PAIN MEDICATION (TYLENOL NOT HELPING WITH STAGE 4 COCCYX WOUND) AND REQUESTED SOMETHING ADDITIONAL FOR AGITATION. FOCUSER FINISHED CHANGING PT AND REDRESSED WOUND. THIS RN SPOKE WITH PT THROUGH ROOM SPEAKER NOTIFYING PT DR HAD BEEN CALLED ABOUT PAIN AND ANXIETY AND WOULD HE LIKE THESE BROUGHT TO THEM BY THIS RN. PT STATED HE WOULD AND WAS VERY POLITE TO THIS RN THE REMAINDER OF THE SHIFT AND ONLY USED CALL LIGHT MINIMALLY FOR THE REMAINDER OF THE SHIFT.
[2020-03-16 09:11] LABS: ABSOLUTE BASOPHILS 0.1 thou/uL (0.0-0.2); ABSOLUTE EOSINOPHILS 0.1 thou/uL (0.0-0.7); ABSOLUTE MONOCYTES 0.8 thou/uL (0.0-1.2); ABSOLUTE NEUTROPHILS 8.6 thou/uL (1.6-8.1); BASOPHILS 0.9 %; EOSINOPHILS 0.9 %; HEMATOCRIT 33.6 % (42.0-52.0); HEMOGLOBIN 11.4 gm/dL (14.0-18.0); MCH 29.8 pg (26.0-34.0); MCHC 33.8 g/dL (28.0-37.0); MONOCYTES 6.3 %; MPV 7.5 fl. (7.2-11.1); NUCLEATED RBCS 0 /100WBC; PLATELET COUNT* 364 thou/uL (150-400); POLYS 67.9 %; RBC 3.82 mil/uL (4.50-6.00); RDW-CV 18.5 % (10.5-14.5); WBC 12.7 thou/uL (4.0-11.0)
[2020-03-16 09:23] LABS: ALBUMIN 2.4 g/dL (3.4-5.0); CALCIUM 8.6 mg/dL (8.5-10.1); CREATININE 1.5 mg/dL (0.6-1.3); MAGNESIUM 1.5 mg/dL (1.8-2.4); PHOSPHORUS* 3.3 mg/dL (2.5-4.9); POTASSIUM 3.8 mmol/L (3.5-5.1); TOTAL BILIRUBIN 0.3 mg/dL (<0.1-1.0); TOTAL PROTEIN 6.4 g/dL (6.4-8.2)
--- NOTE | 2020-03-16 17:10 | NUR ---
Continue to await 2 negative covids for ARU vs SNF. On IVABX, may be medically stable to dc in 1-2 days.
--- NOTE | 2020-03-16 18:31 | NUR ---
PT A&OX4 VSS. PT INTERMITTENTLY C/O DISCOMFORT R/T FRIAS, PHYSICIAN NOTIFIED. FRIAS PATENT, YELLOW URINE OBSERVED IN COLLECTION BAG, TUBING SECURED WITH DEVICE. PT ON ROOM AIR AT TIME OF ASSESSMENT, NC ON BED NEXT TO PT IN REACH. SAT 96%. ASSISTED PT TO CHANGE SHIRT THIS AM AT BREAKFAST. WOUND NURSE CONTACTED R/T TO DRESSING. PT IS NOT TO GET UP TO CHAIR PER KIANA RN D/T SACRAL WOUND. PT UPDATED BY PHONE THIS SHIFT. MACY MIDLINE PATENT, SALINE LOCKED WHEN ABX NOT INFUSING. PT ACCUCHECK AND INSULIN ADMINISTERED ORDERED. PT REMAINS ON ISOLATION PRECAUTIONS FOR COVID. PT ON LOW AIRLOSS/BARIATRIC BED FOR SKIN INTEGRITY. PT REPOSITIONED Q2H SIDE TO SIDE. PT RESTING IN BED WITH CALL LIGHT AND PHONE IN [facility]. WILL CONTINUE TO MONITOR.
[2020-03-16 19:37] LABS: CALCIUM 8.6 mg/dL (8.5-10.1); CREATININE 1.5 mg/dL (0.6-1.3); POTASSIUM 4.4 mmol/L (3.5-5.1)
[2020-03-16 20:00] VITALS: BP 112/65
--- NOTE | 2020-03-17 05:25 | NUR ---
ASSESSMENT COMPLETED AT BEDSIDE, PLEASE REFER TO CHARTING FOR DETAILS. MEDICATIONS ADMINISTERED PER MAR. HOURLY ROUNDING FOR PT SAFETY. FALL PRECAUTIONS ARE IN PLACE WITH BED ALARM AND CALL LIGHT WITHIN REACH. PT REMAINS IN ISO WITH ENHANCED PRECAUTIONS D/T COVID. PAIN AND ANXIETY CONTROLLED WITH PRN MEDICATIONS. NO OTHER CONCERNS NOTED AT THIS TIME.
--- NOTE | 2020-03-17 11:49 | NUR ---
Covid test to be done today. Pt advocate to complete video call between and Pt. ARU continues to follow
[2020-03-17 11:52] LABS: HEMATOCRIT 34.6 % (42.0-52.0); HEMOGLOBIN 11.6 gm/dL (14.0-18.0); MCH 29.6 pg (26.0-34.0); MCHC 33.5 g/dL (28.0-37.0); MCV 88.3 fL (80.0-100.0); NUCLEATED RBCS 0 /100WBC; PLATELET COUNT* 350 thou/uL (150-400); RBC 3.92 mil/uL (4.50-6.00); RDW-CV 18.7 % (10.5-14.5); WBC 9.6 thou/uL (4.0-11.0)
[2020-03-17 12:03] LABS: ALBUMIN 2.5 g/dL (3.4-5.0); CALCIUM 8.8 mg/dL (8.5-10.1); CREATININE 1.4 mg/dL (0.6-1.3); MAGNESIUM 1.5 mg/dL (1.8-2.4); PHOSPHORUS* 4.7 mg/dL (2.5-4.9); POTASSIUM 4.1 mmol/L (3.5-5.1); TOTAL BILIRUBIN 0.3 mg/dL (<0.1-1.0); TOTAL PROTEIN 5.7 g/dL (6.4-8.2)
[2020-03-17 12:54] LABS: ABSOLUTE LYMPHOCYTES 2.3 thou/uL (0.8-5.3); ABSOLUTE MONOCYTES 0.6 thou/uL (0.0-1.2); ABSOLUTE NEUTROPHILS 6.7 thou/uL (1.6-8.1)
[2020-03-17 12:55] LABS: ANISOCYTOSIS 1+; PLATELET ESTIMATE ADEQUATE; POIKILOCYTOSIS 1+; POLYCHROMASIA 1+
[2020-03-17 16:41] VITALS: BP 140/60
--- NOTE | 2020-03-17 18:39 | NUR ---
PT ALERT AND ORIENTED INCREASED NEEDS AND FORGETFUL ACHS PAIN AND ANXIETY NOTED 1ST COVID CAME BACK NEG WILL DO ANOTHER TOMORROW WOUND TO BUTTOCKS WITH COPIOUS DRAINAGE BM TODAY COPIOUS AMOUNTS OF URINE FLUIDS STOPPED DRESSING TO MIDLINE CHANGED AND INFUSION NURSE REPOSITIONED SINCE IT WAS LEAKING CALL LIGHT IN REACH
[2020-03-17 20:00] VITALS: BP 125/70
--- NOTE | 2020-03-18 04:33 | NUR ---
ASSUMED PT CARE AT APPROX 1930. PT IS AWAKE AND ORIENTED X4. NO DESATURATIONS NOTED ON 2L OF O2/NC, PT IS NOT IN RESPIRATORY DISTRESS. PT C/O BACK PAIN RELIEVED BY PAIN MEDS GIVEN PER OCT. PT IS ABLE TO REST THROUGH THE NIGHT. POSITION CHANGES DONE, WOUND CARE DONE. NO ACUTE CHANGES THROUGHOUT THIS SHIFT. CALL LIGHT WITHIN REACH. HIGH FALL PRECAUTIONS IN PLACE. HOURLY ROUNDING DONE FOR PT SAFETY.
--- NOTE | 2020-03-18 07:00 | NUR ---
Pt refused some turns, pt reminded on the importance of off loading on wound healing.
[2020-03-18 07:31] LABS: ABSOLUTE BASOPHILS 0.1 thou/uL (0.0-0.2); ABSOLUTE EOSINOPHILS 0.1 thou/uL (0.0-0.7); ABSOLUTE LYMPHOCYTES 2.6 thou/uL (0.8-5.3); ABSOLUTE MONOCYTES 0.6 thou/uL (0.0-1.2); ABSOLUTE NEUTROPHILS 4.9 thou/uL (1.6-8.1); BASOPHILS 0.8 %; EOSINOPHILS 1.3 %; HEMATOCRIT 33.7 % (42.0-52.0); HEMOGLOBIN 11.5 gm/dL (14.0-18.0); LYMPHOCYTES 31.6 %; MCHC 34.2 g/dL (28.0-37.0); MCV 87.7 fL (80.0-100.0); MONOCYTES 6.9 %; MPV 7.6 fl. (7.2-11.1); NUCLEATED RBCS 0 /100WBC; PLATELET COUNT* 305 thou/uL (150-400); POLYS 59.4 %; RBC 3.84 mil/uL (4.50-6.00); RDW-CV 18.6 % (10.5-14.5); WBC 8.2 thou/uL (4.0-11.0)
[2020-03-18 07:44] LABS: ALBUMIN 2.4 g/dL (3.4-5.0); CREATININE 1.3 mg/dL (0.6-1.3); MAGNESIUM 1.5 mg/dL (1.8-2.4); POTASSIUM 4.1 mmol/L (3.5-5.1); TOTAL BILIRUBIN 0.2 mg/dL (<0.1-1.0); TOTAL PROTEIN 6.2 g/dL (6.4-8.2)
--- NOTE | 2020-03-18 12:43 | NUR ---
Pt off iso, per [facility] policy. Await 2 negative rapid covids,anticipate dc on Monday. Updated animal rehabilitator.
[2020-03-18 17:30] VITALS: BP 121/68
--- NOTE | 2020-03-18 18:41 | NUR ---
PT IS OFF COVID ISOLATION 2L NC BED BATH GIVEN BM TODAY CAME TO VISIT SHOULD GO TO REHAB TOMORROW
[2020-03-18 20:00] VITALS: BP 128/61
[2020-03-19] VITALS: BP 115/54
--- NOTE | 2020-03-19 04:51 | NUR ---
ASSUMED PT CARE AT APPROX 1930. PT IS AWAKE AND ORIENTED X4. ASSESSMENT DONE AND CHARTED. PT IS NOT IN RESPIRATORY DISTRESS, NO DESATURATIONS NOTED ON 2L OF O2/NC. PT DID NOT USE TRILOGY AT HS. PAIN MEDS GIVEN FOR BACK PAIN WITH PARTIAL RELIEF. POSITION CHANGES DONE CHARTED. NO ACUTE CHANGES OVERNIGHT. CALL LIGHT AND FREQUENTLY USED BELONGINGS WITHIN REACH. HOURLY ROUNDING DONE FOR PT SAFETY.HIGH FALL PRECAUTIONS IN PLACE.
[2020-03-19 08:30] VITALS: BP 98/52
[2020-03-19] MEDS ORDERED: ZINC SULFATE 2220 MG PO (09:42)
[2020-03-19] MEDS ORDERED: AMBIEN 5 MG TABL5 M1 PO (09:42)
[2020-03-19] MEDS ORDERED: GLUCOPHAGE850 MG PO (09:42)
[2020-03-19] MEDS ORDERED: MIRALAX17 GM PORT (09:42)
[2020-03-19] MEDS ORDERED: NEURONTIN 300M300 M2 PO (09:42)
[2020-03-19] MEDS ORDERED: IPRAT-ALBUT 0.5-3 ML INH (09:42)
[2020-03-19] MEDS ORDERED: LORAZEPAM 0.50.5 MG PO (09:42)
[2020-03-19] MEDS ORDERED: ULTRAM 50MG TAB50 MG PO (09:42)
[2020-03-19] MEDS ORDERED: MAGNESIUM400 MG PO (09:42)
[2020-03-19] MEDS ORDERED: LINEZOLID600 MG PO (09:42)
[2020-03-19] MEDS ORDERED: SEROQUEL 50 MG50 MG PO (09:42)
[2020-03-19] MEDS ORDERED: VOLTAREN GEL 1100 G1 TOP (09:42)
[2020-03-19] MEDS ORDERED: DOCUSATE S100 MG/10 PO (09:42)
[2020-03-19 12:29] VITALS: BP 98/52
[2020-03-19 12:34] VITALS: BP 98/52
--- NOTE | 2020-03-19 14:28 | NUR ---
WOUND NURSE: PATIENT SEEN FOR FOLLOW UP ASSEMENT OF SACRAL, COCCYGEAL, BUTTOCK WOUND: CLEANSED WITH SOAP AND WATER, RINSED WITH WATER, PATTED DRY. APPLIED Z GUARD TO INTACT PERIWOUND TISSUE. APPLIED IODOSORB GEL WITH AQUACEL TO WOUND COVERED WITH SACRAL BORDERED FOAM DRESSING AND ADDITIONAL BORDERED FOAM DRESSINGS. WOUND MEASURES: 9.0 X 12.0 X 3.0 CM AND WITH UNDERMINING FROM 9 TO 5 O'CLOCK 3.0 CM. WOUND BED PRESENTS WITH YELLOWISH NECROTIC TISSUE IN THE WOUND BASE. PERIWOUND HEALING AND WITH RED, NONGRANULATING TISSUE IN STARR WOUND BED.
[2020-03-19 15:23] VITALS: BP 103/52; BP 136/54
--- NOTE | 2020-03-19 19:12 | NUR ---
Pt AOx4. Remained in the bed, max assist with a daphne. q2t on a low air loss mattress. Managing pain with PO oxycodone. Wound care seen patient today and changed dressing to sacral wound. hourly rounding complete. will continue to monitor
--- NOTE | 2020-03-20 05:28 | NUR ---
PT COMPLAINT OF PAIN IN RT ARM "FROM PICC LINE THAT WENT BAD" PO MED ADMINISTERED FOR THIS WITH EXCELLENT RESULT. PT HAS BEEN RESTLESS THIS PM FOUND WITH TRILOGY MASK OFF SEVERAL TIMES WHILE HOURLY ROUNDING PERFORMED AND WAS ENCOURAGED TO PUT BACK IN PLACE. PT Q2 TURN FOR PROMOTION OF SKIN HEALING,FRIAS TO DD WITH CLEAR YELLOW URINE OUTPUT THAT IS QS. PT DID NOT REQUIRE SSI THIS PM FOR BLOOD SUGAR OF 133.LUNG SOUNDS ARE DIMINISHED WITH RONCHI IN BILAT MIDDLE/LOWER LOBES, PT DENIES COUG. NO CONCERNS VOICED AT THIS TIME, SAFETY PRECUATIONS IN PLACE,WCTM
[2020-03-20 07:15] VITALS: BP 111/54
[2020-03-20 15:38] VITALS: BP 116/57
--- NOTE | 2020-03-20 16:00 | NUR ---
INPT.REHAB DECLINED PT.DUE TO CON'T POSITIVE COVID PCR. FAXED REFERRALS TO [facility] [phone] AND [facility] [phone]. UNABLE TO REACH ANYONE AT [facility] OR [facility] FOR FAX NUMBER. WILL TRY AGAIN ON MONDAY.
--- NOTE | 2020-03-20 16:31 | NUR ---
WOUND NURSE: MOSHE SEEN TO ASSSIST DR. DILLARD WHO PERFORMED SELECTIVE DEBRIDEMENT OF THE SACROCOCCYGEAL WOUND BY REMOVING ADHERENT STRINGLY YELLOW SLOUGH FROM THE BASE OF THE WOUND BED USING FORCEPS AND SCISSORS. MOSHE WAS FREE OF PAIN IN THE PROCESS. WOUND WAS CLEANSED WITH SOAP AND WATER, RINSED WITH WATER, THEN PATTED DRY. PACKED LIGHTLY WITH 1/4 STRENGTH DAKINS DAMPENED GAUZE, COVERED WITH ABD'S, SECURED USING MICROFOAM TAPE. APPLIED Z GUARD (ZINC OXIDE) TO PERIWOUND. POST DEBRIDEMENT ARE FOLLOWS: 10.5 X 9.0 X 3 CM. UNDERMINING FROM 11 TO 7 O'CLOCK 5.5 CM DEEPEST ASPECT OF UNDERMINING AT 3 O'CLOCK.
--- NOTE | 2020-03-20 18:48 | NUR ---
A&O X 4, PINK WARM AND DRY. PICC LINE LEFT UPPER ARM INTACT, NO S/S OF INFECTION NOTED. ON [facility] AIR MATTRESS BED. HAS WOUND ON COCCYX LENGTH 10.5 CM. WIDTH 9CM. DEPTH 3CM. TUNNELING 11-7 5.5 CM. MEASURED AND DRESSED BY WOUND CARE NURSE. PHOTO'S IN CHART. DRESSING CHANGE TO BE DONE EVERY 6 HOURS WITH DAKINS SOLUTION. C/O RIGHT UPPER ARM PAIN AND HAS VOLTARN ONITMENT FOR IT. 02 ON AT 2L PER NC. FRIAS CATH WITH CLEAR YELLOW URINE NOTED. PENDING REHAB PLACEMENT. NO OTHER C/O VOICED. WILL CONTINUE TO MONITOR.
[2020-03-20 19:55] VITALS: BP 107/47
--- NOTE | 2020-03-21 04:49 | NUR ---
PATIENT ON 2L-O2. NO REPORTS OF PAIN ALL SHIFT. CHANGED DRESSING ON SACRAL AREA 2X PER DR ORDERS. MAX ASSIST FOR TOILETING. TOOK ALL MEDS SCHEDULED. HAD A LARGE BM OVER NIGHT. FRIAS OUTPUT DARK CLEAR LANDRY URINE. PLAN IS TO D/C TO A REHAB FACILITY AND PENDING 2ND ROUND COVID TESTING. WILL CONTINUE TO FOLLOW PLAN OF CARE.
[2020-03-21 07:50] VITALS: BP 107/63
--- NOTE | 2020-03-21 16:10 | NUR ---
PATIENT TURNED Q2. WOUND CARE PERFORMED PER PROTOCOL. LEFT UPPER ARM PICC SL. 02 2L NC REMAINS IN PLACE. PRN TYLENOL AND OXY IR GIVEN ORDERED FOR NECK AND BACK PAIN. BM NOTED X 2. COVID TEST SENT PER ORDERS. SPOKE WITH BARBARA AT [facility] AND POSSIBLE DISCHARGE TO THERE TOMORROW, UNABLE TO TAKE PATIENT TODAY.
[2020-03-21 19:57] VITALS: BP 106/47
--- NOTE | 2020-03-22 05:07 | NUR ---
WOUND DRESSING CHANGED AT 2200 AND 0400. NO PAIN REPORTED. Q2 TURN, HOURLY ROUNDING. FRIAS STILL INTACT DARK LANDRY URINE. I ENCOURAGE HIM TO HYDRATE. HE WAS ABLE TO SLEEP MOST OF THE NIGHT WITHOUT ANY ISSUES. STILL ON 2L-O2. WILL CONTINUE TO MONITOR.
[2020-03-22 08:15] VITALS: BP 95/55
[2020-03-22 15:36] VITALS: BP 120/62
--- NOTE | 2020-03-22 16:00 | NUR ---
PATIENT DISCHARGED AT THIS TIME TO [facility], REPORT CALLED TO NEENA. MIDLINE DC'D PER ORDERS. WOUND PHOTO OBTAINED OF SACRUM AND WOUND DRESSING CHANGED. PATIENT GIVEN PRN ATIVAN AND OXY IR ORDERED. PATIENTS HERE THIS AFTERNOON AND AWARE OF PLAN OF CARE. PATIENT DISCHARGED WITH VAN VIA STRETCHER AND ALL BELONGINGS.
== END 2020-03-22 15:30 | disposition short-term general hospital (02) | DRG 853 ==
LOC: M.ERS 04:15 → M.TBA-ER 06:06 → M.ICU 06:06 → M.2W 02-19 20:06 → M.ORTHSURG 03-19 09:45
PROVIDERS: Internal Medicine; Internal Medicine Cardiovascular Disease; Internal Medicine Critical Care Medicine; Pediatrics; Personal Emergency Response Attendant; Specialist; ADMIT Internal Medicine; ATTEND Internal Medicine
PROC: 5A09357 Assistance with Respiratory Ventilation, Less than 24 Consecutive Hours, Continuous Positive Airway Pressure (ICD-10-PCS; principal; 2020-01-31)
PROC: 0BH17EZ Insertion of Endotracheal Airway into Trachea, Via Natural or Artificial Opening (ICD-10-PCS; 2020-02-01)
PROC: 5A1955Z Respiratory Ventilation, Greater than 96 Consecutive Hours (ICD-10-PCS; 2020-02-01)
PROC: 5A09357 Assistance with Respiratory Ventilation, Less than 24 Consecutive Hours, Continuous Positive Airway Pressure (ICD-10-PCS; 2020-02-01)
PROC: 02HV33Z Insertion of Infusion Device into Superior Vena Cava, Percutaneous Approach (ICD-10-PCS; 2020-02-01)
PROC: B548ZZA Ultrasonography of Superior Vena Cava, Guidance (ICD-10-PCS; 2020-02-01)
PROC: 5A09357 Assistance with Respiratory Ventilation, Less than 24 Consecutive Hours, Continuous Positive Airway Pressure (ICD-10-PCS; 2020-02-17)
PROC: 5A09357 Assistance with Respiratory Ventilation, Less than 24 Consecutive Hours, Continuous Positive Airway Pressure (ICD-10-PCS; 2020-02-18)
PROC: 5A09357 Assistance with Respiratory Ventilation, Less than 24 Consecutive Hours, Continuous Positive Airway Pressure (ICD-10-PCS; 2020-02-19)
PROC: 5A09357 Assistance with Respiratory Ventilation, Less than 24 Consecutive Hours, Continuous Positive Airway Pressure (ICD-10-PCS; 2020-02-20)
PROC: 5A09357 Assistance with Respiratory Ventilation, Less than 24 Consecutive Hours, Continuous Positive Airway Pressure (ICD-10-PCS; 2020-02-21)
PROC: 5A09357 Assistance with Respiratory Ventilation, Less than 24 Consecutive Hours, Continuous Positive Airway Pressure (ICD-10-PCS; 2020-02-23)
PROC: 5A09357 Assistance with Respiratory Ventilation, Less than 24 Consecutive Hours, Continuous Positive Airway Pressure (ICD-10-PCS; 2020-02-24)
PROC: 5A09357 Assistance with Respiratory Ventilation, Less than 24 Consecutive Hours, Continuous Positive Airway Pressure (ICD-10-PCS; 2020-02-25)
PROC: 5A09357 Assistance with Respiratory Ventilation, Less than 24 Consecutive Hours, Continuous Positive Airway Pressure (ICD-10-PCS; 2020-02-26)
PROC: 5A09357 Assistance with Respiratory Ventilation, Less than 24 Consecutive Hours, Continuous Positive Airway Pressure (ICD-10-PCS; 2020-02-28)
PROC: 0HB6XZZ Excision of Back Skin, External Approach (ICD-10-PCS; 2020-02-28)
PROC: 5A09357 Assistance with Respiratory Ventilation, Less than 24 Consecutive Hours, Continuous Positive Airway Pressure (ICD-10-PCS; 2020-02-29)
PROC: 5A09357 Assistance with Respiratory Ventilation, Less than 24 Consecutive Hours, Continuous Positive Airway Pressure (ICD-10-PCS; 2020-03-01)
PROC: 5A09357 Assistance with Respiratory Ventilation, Less than 24 Consecutive Hours, Continuous Positive Airway Pressure (ICD-10-PCS; 2020-03-02)
PROC: 5A09357 Assistance with Respiratory Ventilation, Less than 24 Consecutive Hours, Continuous Positive Airway Pressure (ICD-10-PCS; 2020-03-03)
PROC: 5A09357 Assistance with Respiratory Ventilation, Less than 24 Consecutive Hours, Continuous Positive Airway Pressure (ICD-10-PCS; 2020-03-04)
PROC: 5A09357 Assistance with Respiratory Ventilation, Less than 24 Consecutive Hours, Continuous Positive Airway Pressure (ICD-10-PCS; 2020-03-05)
PROC: 5A09357 Assistance with Respiratory Ventilation, Less than 24 Consecutive Hours, Continuous Positive Airway Pressure (ICD-10-PCS; 2020-03-06)
PROC: 5A09357 Assistance with Respiratory Ventilation, Less than 24 Consecutive Hours, Continuous Positive Airway Pressure (ICD-10-PCS; 2020-03-07)
PROC: 5A09357 Assistance with Respiratory Ventilation, Less than 24 Consecutive Hours, Continuous Positive Airway Pressure (ICD-10-PCS; 2020-03-08)
PROC: 5A09357 Assistance with Respiratory Ventilation, Less than 24 Consecutive Hours, Continuous Positive Airway Pressure (ICD-10-PCS; 2020-03-09)
PROC: 5A09357 Assistance with Respiratory Ventilation, Less than 24 Consecutive Hours, Continuous Positive Airway Pressure (ICD-10-PCS; 2020-03-10)
PROC: 5A09357 Assistance with Respiratory Ventilation, Less than 24 Consecutive Hours, Continuous Positive Airway Pressure (ICD-10-PCS; 2020-03-11)
PROC: 5A09357 Assistance with Respiratory Ventilation, Less than 24 Consecutive Hours, Continuous Positive Airway Pressure (ICD-10-PCS; 2020-03-12)
PROC: 5A09357 Assistance with Respiratory Ventilation, Less than 24 Consecutive Hours, Continuous Positive Airway Pressure (ICD-10-PCS; 2020-03-13)
PROC: 5A09357 Assistance with Respiratory Ventilation, Less than 24 Consecutive Hours, Continuous Positive Airway Pressure (ICD-10-PCS; 2020-03-14)
PROC: 5A09357 Assistance with Respiratory Ventilation, Less than 24 Consecutive Hours, Continuous Positive Airway Pressure (ICD-10-PCS; 2020-03-15)
PROC: 5A09357 Assistance with Respiratory Ventilation, Less than 24 Consecutive Hours, Continuous Positive Airway Pressure (ICD-10-PCS; 2020-03-19)
PROC: 0JB70ZZ Excision of Back Subcutaneous Tissue and Fascia, Open Approach (ICD-10-PCS; 2020-03-20)
PROC: 5A09357 Assistance with Respiratory Ventilation, Less than 24 Consecutive Hours, Continuous Positive Airway Pressure (ICD-10-PCS; 2020-03-20)
PROC: 5A09357 Assistance with Respiratory Ventilation, Less than 24 Consecutive Hours, Continuous Positive Airway Pressure (ICD-10-PCS; 2020-03-21)
DX: A41.81 Sepsis due to Enterococcus (principal); L89.154 Pressure ulcer of sacral region, stage 4; R65.21 Severe sepsis with septic shock; U07.1 COVID-19; J96.21 Acute and chronic respiratory failure with hypoxia; J12.89 Other viral pneumonia; I21.A1 Myocardial infarction type 2; G93.41 Metabolic encephalopathy; J15.4 Pneumonia due to other streptococci; J15.8 Pneumonia due to other specified bacteria; G82.50 Quadriplegia, unspecified; E46 Unspecified protein-calorie malnutrition; J44.0 Chronic obstructive pulmonary disease with (acute) lower respiratory infection; K56.7 Ileus, unspecified; M62.82 Rhabdomyolysis; J44.1 Chronic obstructive pulmonary disease with (acute) exacerbation; I50.30 Unspecified diastolic (congestive) heart failure; J98.11 Atelectasis; I13.0 Hypertensive heart and chronic kidney disease with heart failure and stage 1 through stage 4 chronic kidney disease, or unspecified chronic kidney disease; Z68.41 Body mass index [BMI] 40.0-44.9, adult; A41.89 Other specified sepsis; E66.01 Morbid (severe) obesity due to excess calories; M19.90 Unspecified osteoarthritis, unspecified site; E78.5 Hyperlipidemia, unspecified; F41.9 Anxiety disorder, unspecified; E11.43 Type 2 diabetes mellitus with diabetic autonomic (poly)neuropathy; K31.84 Gastroparesis; E11.65 Type 2 diabetes mellitus with hyperglycemia; T38.0X5A Adverse effect of glucocorticoids and synthetic analogues, initial encounter; Y95 Nosocomial condition; D64.9 Anemia, unspecified; K21.9 Gastro-esophageal reflux disease without esophagitis; G47.33 Obstructive sleep apnea (adult) (pediatric); M48.00 Spinal stenosis, site unspecified; M25.511 Pain in right shoulder; R13.10 Dysphagia, unspecified; E11.42 Type 2 diabetes mellitus with diabetic polyneuropathy; Z96.651 Presence of right artificial knee joint; N18.3 Chronic kidney disease, stage 3 (moderate); E11.22 Type 2 diabetes mellitus with diabetic chronic kidney disease; Z79.899 Other long term (current) drug therapy; Z79.4 Long term (current) use of insulin; Y92.89 Other specified places as the place of occurrence of the external cause; Z88.0 Allergy status to penicillin; Z88.6 Allergy status to analgesic agent; Z88.1 Allergy status to other antibiotic agents; Z91.010 Allergy to peanuts

== ENCOUNTER 2020-10-21 15:12 | Inpatient (IN) | payer MEDICARE, OTHER ==
[~2020-10-21] VITALS: Ht 188 cm; Wt 164.9 kg
[~2020-10-21 15:12] MED LIST changes: +AMBIEN 5 MG TABL5 M1 PO; +DOCUSATE S100 MG/10 PO; +GLUCOPHAGE850 MG PO; +IPRAT-ALBUT 0.5-3 ML INH; +LINEZOLID600 MG PO; +LORAZEPAM 0.50.5 MG PO; +MAGNESIUM400 MG PO; +MIRALAX17 GM PORT; +NEURONTIN 300M300 M2 PO; +SEROQUEL 50 MG50 MG PO; +VOLTAREN GEL 1100 G1 TOP; +ZINC SULFATE 2220 MG PO
[2020-10-21 15:13] VITALS: BP 102/68
[2020-10-21 15:45] LABS: ABSOLUTE BASOPHILS 0.1 thou/uL (0.0-0.2); ABSOLUTE EOSINOPHILS 0.1 thou/uL (0.0-0.7); ABSOLUTE LYMPHOCYTES 1.5 thou/uL (0.8-5.3); ABSOLUTE MONOCYTES 0.6 thou/uL (0.0-1.2); ABSOLUTE NEUTROPHILS 9.6 thou/uL (1.6-8.1); BASOPHILS 1.1 %; HEMATOCRIT 40.3 % (42.0-52.0); HEMOGLOBIN 13.3 gm/dL (14.0-18.0); LYMPHOCYTES 12.7 %; MCH 27.6 pg (26.0-34.0); MCHC 32.9 g/dL (28.0-37.0); MCV 83.7 fL (80.0-100.0); MPV 8.2 fl. (7.2-11.1); NUCLEATED RBCS 0 /100WBC; PLATELET COUNT* 153 thou/uL (150-400); POLYS 80.2 %; RBC 4.81 mil/uL (4.50-6.00); RDW-CV 15.1 % (10.5-14.5)
[2020-10-21 15:55] LABS: CALCIUM 10.2 mg/dL (8.5-10.1); CREATININE 1.4 mg/dL (0.6-1.3); POTASSIUM 4.2 mmol/L (3.5-5.1)
[2020-10-21 15:59] LABS: APTT 21.5 Seconds (25.0-31.3); PROTIME 10.3 Seconds (9.20-11.50)
[2020-10-21 16:05] LABS: ALBUMIN 3.1 g/dL (3.4-5.0); TOTAL BILIRUBIN 0.4 mg/dL (<0.1-1.0); TOTAL PROTEIN 6.9 g/dL (6.4-8.2)
[2020-10-21 16:25] LABS: URINE BILIRUBIN NEGATIVE (Negative); URINE BLOOD NEGATIVE (Negative); URINE CLARITY CLEAR; URINE COLOR YELLOW; URINE GLUCOSE-RANDOM 1+ (Negative); URINE KETONES NEGATIVE (Negative); URINE LEUKOCYTES-REFLEX NEGATIVE (Negative); URINE NITRITE-REFLEX NEGATIVE (Negative); URINE PROTEIN NEGATIVE (Negative); URINE UROBILINOGEN 0.2 E.U./dl (0.2-1.0)
[2020-10-21 19:32] VITALS: BP 123/65
[2020-10-22] VITALS (9 sets, daily range): BP systolic 93–144; BP diastolic 47–87
--- NOTE | 2020-10-22 09:07 | EKG ---
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 : 1945 Requested By: Jude Alberto Order Number: [id number] MD: Maximiliano Duff Measurements Intervals [place] Rate: 113 P: 5 FL: 139 QRS: 3 QRSD: 84 T: 71 QT: 321 QTc: 441 Interpretive Statements Sinus tachycardia Low voltage, precordial leads Nonspecific T abnormalities, lateral leads Baseline wander in lead(s) I,III,aVR,aVL,V5 Compared to ECG 02/03/2020 10:01:29 T-wave abnormality now present Sinus rhythm no longer present Prolonged QT interval no longer present Electronically Signed On 10-22-2020 9:07:13 VEHICLE WASHER by Maximiliano Duff [email or web address] <ELECTRONICALLY SIGNED> By: Maximiliano Duff MD, [facility] 10/22/20 0907 1527 1527 Maximiliano Duff MD, [facility] /EPI
--- NOTE | 2020-10-22 15:32 | 2DMMODE ---
[place] [address] 2 D/M-MODE ECHOCARDIOGRAM Name: STEPHANIE NARANJO Room: [address] IN [facility]#: [id number] Admission: 10/21/20 Attend Phys: Kayla Khan, Discharge: Date of : 47 Date of Service: 10/22/20 1532 Report #: [id number] THIS REPORT FOR: cc: James Estrada MD, Anthony MD Liston, Michael J. MD [facility] ~ APPROVED REPORT Study performed: 10/22/2020 14:56:24 EXAM: Limited 2D Echocardiogram Patient Location: In-Patient Room #: [facility] Status: routine BSA: 2.63 HR: 107 bpm BP: 93/49 mmHg Rhythm: NSR Other Information Study Quality: Good Indications Dyspnea Syncope Tricuspid Valve RAP Estimate: 5.00 mmHg TR Peak Gr.: 20.01 mmHg RVSP: 25.00 mmHg PA Pressure: 25.00 mmHg Left Ventricle The left ventricle is normal size. There is normal LV segmental wall motion. There is normal left ventricular wall thickness. The left ventricular systolic function is normal. LVEF is 55-60%. Right Ventricle The right ventricle is normal size. The right ventricular systolic function is normal. Atria The left atrium size is normal. The right atrium size is normal. [place] [address] 2 D/M-MODE ECHOCARDIOGRAM Name: STEPHANIE NARANJO Room: [address] IN [facility]#: [id number] Admission: 10/21/20 Attend Phys: Kayla Khan, Discharge: Date of : 47 Date of Service: 10/22/202 Report #: [id number] Aortic valve leaflets are sclerotic but open well. Mitral Valve The mitral valve is normal in structure. Tricuspid Valve The tricuspid valve is normal in structure. Trace tricuspid regurgitation. No pulmonary hypertension. Pulmonic Valve The pulmonary valve is normal in structure. Great Vessels The aortic root is normal in size. IVC is normal in size and collapses >50% with inspiration. Pericardium There is no pericardial effusion. <Conclusion> The left ventricle is normal size. There is normal left ventricular wall thickness. The left ventricular systolic function is normal. LVEF is 55-60%. Aortic valve leaflets are sclerotic but open well. Trace tricuspid regurgitation. No pulmonary hypertension. IVC is normal in size and collapses >50% with inspiration. <ELECTRONICALLY SIGNED> By: Maximiliano Duff MD, FACC 10/22/20 1532 31 1532 Maximiliano Duff MD, FACC /INF
[2020-10-23 04:01] VITALS: BP 117/66
[2020-10-23 04:08] LABS: ABSOLUTE EOSINOPHILS 0.2 thou/uL (0.0-0.7); ABSOLUTE LYMPHOCYTES 2.1 thou/uL (0.8-5.3); ABSOLUTE MONOCYTES 0.4 thou/uL (0.0-1.2); ABSOLUTE NEUTROPHILS 3.3 thou/uL (1.6-8.1); BASOPHILS 0.4 %; EOSINOPHILS 3.2 %; LYMPHOCYTES 35.1 %; MCHC 32.7 g/dL (28.0-37.0); MCV 85.6 fL (80.0-100.0); MONOCYTES 6.3 %; MPV 8.7 fl. (7.2-11.1); NUCLEATED RBCS 0 /100WBC; PLATELET COUNT* 120 thou/uL (150-400); RBC 3.97 mil/uL (4.50-6.00); RDW-CV 15.4 % (10.5-14.5); WBC 5.9 thou/uL (4.0-11.0)
[2020-10-23 04:19] LABS: HEMOGLOBIN 11.1 gm/dL (14.0-18.0)
[2020-10-23 04:33] LABS: ALBUMIN 2.3 g/dL (3.4-5.0); CALCIUM 8.5 mg/dL (8.5-10.1); CREATININE 1.4 mg/dL (0.6-1.3); MAGNESIUM 1.4 mg/dL (1.8-2.4); POTASSIUM 3.8 mmol/L (3.5-5.1); TOTAL BILIRUBIN 0.5 mg/dL (<0.1-1.0); TOTAL PROTEIN 5.5 g/dL (6.4-8.2)
[2020-10-23 08:21] VITALS: BP 103/46
[2020-10-23 11:30] VITALS: BP 129/62
[2020-10-23 16:30] VITALS: BP 118/56
[2020-10-23 20:00] VITALS: BP 133/70
[2020-10-24] VITALS: BP 100/61
[2020-10-24 04:00] VITALS: BP 129/64
[2020-10-24 06:24] LABS: HEMOGLOBIN 11.4 gm/dL (14.0-18.0); MCH 27.9 pg (26.0-34.0); MCHC 32.5 g/dL (28.0-37.0); MCV 85.8 fL (80.0-100.0); RBC 4.08 mil/uL (4.50-6.00); RDW-CV 15.2 % (10.5-14.5); WBC 6.8 thou/uL (4.0-11.0)
[2020-10-24 06:51] LABS: ALBUMIN 2.5 g/dL (3.4-5.0); CALCIUM 8.3 mg/dL (8.5-10.1); CREATININE 1.6 mg/dL (0.6-1.3); MAGNESIUM 1.5 mg/dL (1.8-2.4); POTASSIUM 3.7 mmol/L (3.5-5.1); TOTAL BILIRUBIN 0.5 mg/dL (<0.1-1.0); TOTAL PROTEIN 5.8 g/dL (6.4-8.2)
[2020-10-24 08:00] VITALS: BP 133/69
[2020-10-24 12:00] VITALS: BP 138/71
[2020-10-24 16:00] VITALS: BP 138/57
[2020-10-24 20:00] VITALS: BP 122/61
[2020-10-25] VITALS (7 sets, daily range): BP systolic 100–135; BP diastolic 53–71
[2020-10-25 05:16] LABS: HEMATOCRIT 37.3 % (42.0-52.0); HEMOGLOBIN 12.1 gm/dL (14.0-18.0); MCH 27.8 pg (26.0-34.0); MCHC 32.4 g/dL (28.0-37.0); MCV 85.8 fL (80.0-100.0); MPV 9.3 fl. (7.2-11.1); RBC 4.35 mil/uL (4.50-6.00); RDW-CV 15.5 % (10.5-14.5); WBC 6.2 thou/uL (4.0-11.0)
[2020-10-25 05:31] LABS: ALBUMIN 2.6 g/dL (3.4-5.0); CALCIUM 9.2 mg/dL (8.5-10.1); CREATININE 1.6 mg/dL (0.6-1.3); MAGNESIUM 1.5 mg/dL (1.8-2.4); POTASSIUM 4.2 mmol/L (3.5-5.1); TOTAL BILIRUBIN 0.5 mg/dL (<0.1-1.0); TOTAL PROTEIN 6.3 g/dL (6.4-8.2)
[2020-10-25 06:01] LABS: URINE BILIRUBIN NEGATIVE (Negative); URINE BLOOD NEGATIVE (Negative); URINE CLARITY CLEAR; URINE COLOR YELLOW; URINE GLUCOSE-RANDOM NEGATIVE (Negative); URINE KETONES NEGATIVE (Negative); URINE LEUKOCYTES-REFLEX TRACE (Negative); URINE NITRITE-REFLEX NEGATIVE (Negative); URINE PROTEIN TRACE (Negative); URINE SPECIFIC GRAVITY 1.025 (1.005-1.030); URINE UROBILINOGEN 0.2 E.U./dl (0.2-1.0)
[2020-10-25 06:48] LABS: SQUAMOUS 0-3 Few /LPF (0-3)
[2020-10-25 06:49] LABS: BACTERIA-REFLEX 1-9 Few /HPF (None Seen); CASTS None Seen /LPF (None Seen); CRYSTALS None Seen /LPF (None Seen); URINE RBC None Seen /HPF (0-2); URINE WBC-REFLEX 0-5 Rare /HPF (0-5)
[2020-10-26 04:22] VITALS: BP 120/67
[2020-10-26 04:27] LABS: HEMATOCRIT 35.5 % (42.0-52.0); HEMOGLOBIN 11.6 gm/dL (14.0-18.0); MCHC 32.6 g/dL (28.0-37.0); MPV 9.2 fl. (7.2-11.1); RBC 4.12 mil/uL (4.50-6.00); WBC 4.3 thou/uL (4.0-11.0)
[2020-10-26 04:36] LABS: CALCIUM 8.9 mg/dL (8.5-10.1); CREATININE 1.8 mg/dL (0.6-1.3); MAGNESIUM 1.6 mg/dL (1.8-2.4); POTASSIUM 4.4 mmol/L (3.5-5.1)
[2020-10-26 08:00] VITALS: BP 136/68
[2020-10-26 12:16] VITALS: BP 121/64
[2020-10-26 17:00] VITALS: BP 102/53
[2020-10-26 20:29] VITALS: BP 109/59
[2020-10-27 00:14] VITALS: BP 108/41
[2020-10-27 06:09] VITALS: BP 117/58
[2020-10-27 08:00] VITALS: BP 102/53
[2020-10-27 12:12] VITALS: BP 99/44
[2020-10-27 16:00] VITALS: BP 131/53
[2020-10-27 21:00] VITALS: BP 112/52
[2020-10-28] VITALS (7 sets, daily range): BP systolic 93–127; BP diastolic 47–63
[2020-10-28 04:48] LABS: HEMATOCRIT 30.7 % (42.0-52.0); HEMOGLOBIN 10.3 gm/dL (14.0-18.0); MCH 28.5 pg (26.0-34.0); MCHC 33.4 g/dL (28.0-37.0); MCV 85.4 fL (80.0-100.0); MPV 8.6 fl. (7.2-11.1); RBC 3.6 mil/uL (4.50-6.00); RDW-CV 14.8 % (10.5-14.5); WBC 7.2 thou/uL (4.0-11.0)
[2020-10-28 05:12] LABS: CALCIUM 8.6 mg/dL (8.5-10.1); CREATININE 1.4 mg/dL (0.6-1.3); MAGNESIUM 1.9 mg/dL (1.8-2.4); POTASSIUM 4.8 mmol/L (3.5-5.1)
[2020-10-29] VITALS: BP 117/57
[2020-10-29 04:24] VITALS: BP 125/59
[2020-10-29 04:51] LABS: HEMATOCRIT 33.5 % (42.0-52.0); MCH 28.2 pg (26.0-34.0); MCHC 32.7 g/dL (28.0-37.0); MCV 86.3 fL (80.0-100.0); MPV 8.3 fl. (7.2-11.1); RBC 3.88 mil/uL (4.50-6.00); RDW-CV 15.6 % (10.5-14.5); WBC 7.5 thou/uL (4.0-11.0)
[2020-10-29 05:08] LABS: CALCIUM 9.1 mg/dL (8.5-10.1); CREATININE 1.3 mg/dL (0.6-1.3); MAGNESIUM 1.7 mg/dL (1.8-2.4); POTASSIUM 4.3 mmol/L (3.5-5.1)
[2020-10-29] MEDS ORDERED: LINEZOLID600 MG PO (09:55)
[2020-10-29] MEDS ORDERED: FLAGYL500 M1 PO (09:55)
[2020-10-29] MEDS ORDERED: ELIQUIS5 MG PO (09:55)
[2020-10-29] MEDS ORDERED: NYAMYC15 GM TOP (09:55)
[2020-10-29] MEDS ORDERED: FLUCONAZOLE 10100 MG PO (09:55)
[2020-10-29 12:07] VITALS: BP 124/56
[2020-10-29 12:46] VITALS: BP 124/56
[2020-10-29 14:36] VITALS: BP 124/56
--- NOTE | 2020-11-03 19:10 | CON ---
[address] [address] CONSULTATION Name: STEPHANIE NARANJO Room: [address] IN .R.#: [id number] Admission: 10/21/20 Attend Phys: Kayla Khan MD Discharge: 10/29/20 Date of : 47 Report #: [id number] THIS REPORT FOR: cc: James Estrada MD, Anthony MD ~ Andrea Bagley MD DATE OF SERVICE: 10/22/2020 HISTORY OF PRESENT ILLNESS: This is a 75-year-old male patient who was evaluated by me to determine any neurological etiology for the patient's dizziness. This patient's history is complicated and I talked to him to some extent and subsequently I talked to Dr. Khan. The consultation was put in before the CT chest report came in and this patient has been to this hospital as well as to [place]. He said he tried to stand up, he felt dizzy and that is why he came in. He feels back to his baseline. He is otherwise slowly getting stronger. REVIEW OF SYSTEMS: Positive for COVID positive. He has a sacral ulcer and he had a near syncope spell. There was no tonic-clonic activity noticed. There was no postictal. He said it was for a split second. He does have a history of cellulitis. He has a history of myocardial infarction as I understand, community-acquired pneumonia as per records. The patient is on multiple medications including metronidazole. He also has a history of diabetes. This is a relevant 14-point review of system. PAST MEDICAL HISTORY: Positive for COVID. FAMILY HISTORY: Unremarkable. PHYSICAL EXAMINATION: Indicate the patient is alert, responsive, able to follow simple and complex command. His speech looks unremarkable. Cranial nerve examination and neuromuscular examination the best that can be done is unremarkable. He does appear to be short of breath. He is an obese individual. His blood pressure is 114/78, respirations 17, pulse is 97.6. He is a big sized person and his blood pressure has gone as low as 93 on more than one occasion. LABORATORY DATA: He did have a CT scan of the head, which was unremarkable. CT of the chest showed a pulmonary embolus. IMPRESSION: The most likely etiology for the patient's symptoms is systemic. He has a pulmonary embolus. He also has other systemic problems including low blood pressure. Neurological causes are considered less likely. I talked to Dr. Khan and she indicated the consult was put in before [place] [address] CONSULTATION Name: STEPHANIE NARANJO Room: [address]#: [id number] Admission: 10/21/20 Attend Phys: Kayla Khan MD Discharge: 10/29/20 Date of : 47 Report #: [id number] came back. In these circumstances, we will sign off and let the other workup proceed. If there is a doubt about neurological cause later on, please reconsult us and we will be happy to follow up this patient. Thank you very much for this referral. <ELECTRONICALLY SIGNED> By: Andrea Bagley MD 11/03/201909 0253Pabiodun Bagley MD /nt
== END 2020-10-29 15:05 | disposition home health service (06) | DRG 175 ==
LOC: M.ERS 15:12 → M.TBA-ER 17:08 → M.2W 17:08
PROVIDERS: Family Medicine; Internal Medicine; Surgery; ADMIT Internal Medicine; ATTEND Internal Medicine
DX: I26.99 Other pulmonary embolism without acute cor pulmonale (principal); J96.01 Acute respiratory failure with hypoxia; R65.10 Systemic inflammatory response syndrome (SIRS) of non-infectious origin without acute organ dysfunction; Z68.42 Body mass index [BMI] 45.0-49.9, adult; L89.159 Pressure ulcer of sacral region, unspecified stage; J44.9 Chronic obstructive pulmonary disease, unspecified; Z96.653 Presence of artificial knee joint, bilateral; Z96.611 Presence of right artificial shoulder joint; Z96.612 Presence of left artificial shoulder joint; E11.22 Type 2 diabetes mellitus with diabetic chronic kidney disease; G47.33 Obstructive sleep apnea (adult) (pediatric); N18.2 Chronic kidney disease, stage 2 (mild); E66.01 Morbid (severe) obesity due to excess calories; I95.9 Hypotension, unspecified; R13.10 Dysphagia, unspecified; B36.9 Superficial mycosis, unspecified; I12.9 Hypertensive chronic kidney disease with stage 1 through stage 4 chronic kidney disease, or unspecified chronic kidney disease; Z20.822 Contact with and (suspected) exposure to COVID-19; Z88.6 Allergy status to analgesic agent; Z88.1 Allergy status to other antibiotic agents; Z88.8 Allergy status to other drugs, medicaments and biological substances; Z87.891 Personal history of nicotine dependence; Z86.16 Personal history of COVID-19; Z87.81 Personal history of (healed) traumatic fracture; Z87.01 Personal history of pneumonia (recurrent); Z79.899 Other long term (current) drug therapy

== ENCOUNTER → 2020-11-04 | Outpatient (CLI) | payer MEDICARE, OTHER ==
[~2020-11-04] MED LIST changes: +ELIQUIS5 MG PO; +FLAGYL500 M1 PO; +FLUCONAZOLE 10100 MG PO; +NYAMYC15 GM TOP
== END ==
LOC: M.WC 08:36
PROVIDERS: ATTEND Surgery
DX: E11.622 Type 2 diabetes mellitus with other skin ulcer (principal); L89.154 Pressure ulcer of sacral region, stage 4; L98.492 Non-pressure chronic ulcer of skin of other sites with fat layer exposed; E11.40 Type 2 diabetes mellitus with diabetic neuropathy, unspecified; E66.01 Morbid (severe) obesity due to excess calories; G47.30 Sleep apnea, unspecified; J44.9 Chronic obstructive pulmonary disease, unspecified; K21.9 Gastro-esophageal reflux disease without esophagitis; Z96.653 Presence of artificial knee joint, bilateral; Z86.711 Personal history of pulmonary embolism; Z86.16 Personal history of COVID-19; Z87.891 Personal history of nicotine dependence; Z98.49 Cataract extraction status, unspecified eye; Z79.4 Long term (current) use of insulin; Z68.41 Body mass index [BMI] 40.0-44.9, adult

== ENCOUNTER → 2020-11-11 | Outpatient (CLI) | payer MEDICARE, OTHER | LOC: M.WC 09:22 | PROVIDERS: ATTEND Surgery | DX: E11.622 Type 2 diabetes mellitus with other skin ulcer (principal); L89.154 Pressure ulcer of sacral region, stage 4; L98.492 Non-pressure chronic ulcer of skin of other sites with fat layer exposed; E11.40 Type 2 diabetes mellitus with diabetic neuropathy, unspecified; E66.01 Morbid (severe) obesity due to excess calories; G47.30 Sleep apnea, unspecified; J44.9 Chronic obstructive pulmonary disease, unspecified; K21.9 Gastro-esophageal reflux disease without esophagitis; Z86.711 Personal history of pulmonary embolism; Z86.16 Personal history of COVID-19; Z87.891 Personal history of nicotine dependence; Z79.4 Long term (current) use of insulin; Z68.41 Body mass index [BMI] 40.0-44.9, adult ==

== ENCOUNTER → 2020-11-18 | Outpatient (CLI) | payer MEDICARE, OTHER | LOC: M.WC 09:52 | PROVIDERS: ATTEND Surgery | DX: E11.622 Type 2 diabetes mellitus with other skin ulcer (principal); L89.154 Pressure ulcer of sacral region, stage 4; L98.492 Non-pressure chronic ulcer of skin of other sites with fat layer exposed; E11.40 Type 2 diabetes mellitus with diabetic neuropathy, unspecified; E66.01 Morbid (severe) obesity due to excess calories; G47.30 Sleep apnea, unspecified; J44.9 Chronic obstructive pulmonary disease, unspecified; K21.9 Gastro-esophageal reflux disease without esophagitis; Z86.711 Personal history of pulmonary embolism; Z86.16 Personal history of COVID-19; Z87.891 Personal history of nicotine dependence; Z79.4 Long term (current) use of insulin; Z68.41 Body mass index [BMI] 40.0-44.9, adult ==

== ENCOUNTER → 2020-11-25 | Outpatient (CLI) | payer MEDICARE, OTHER | LOC: M.WC 09:31 | PROVIDERS: ATTEND Surgery | DX: E11.622 Type 2 diabetes mellitus with other skin ulcer (principal); L89.154 Pressure ulcer of sacral region, stage 4; L98.492 Non-pressure chronic ulcer of skin of other sites with fat layer exposed; E11.40 Type 2 diabetes mellitus with diabetic neuropathy, unspecified; E66.01 Morbid (severe) obesity due to excess calories; G47.30 Sleep apnea, unspecified; J44.9 Chronic obstructive pulmonary disease, unspecified; K21.9 Gastro-esophageal reflux disease without esophagitis; Z86.711 Personal history of pulmonary embolism; Z86.16 Personal history of COVID-19; Z87.891 Personal history of nicotine dependence; Z79.4 Long term (current) use of insulin; Z68.41 Body mass index [BMI] 40.0-44.9, adult ==

== ENCOUNTER → 2020-12-02 | Outpatient (CLI) | payer MEDICARE, OTHER | LOC: M.WC 09:37 | PROVIDERS: ATTEND Surgery | DX: E11.622 Type 2 diabetes mellitus with other skin ulcer (principal); L89.154 Pressure ulcer of sacral region, stage 4; L98.492 Non-pressure chronic ulcer of skin of other sites with fat layer exposed; E11.40 Type 2 diabetes mellitus with diabetic neuropathy, unspecified; E66.01 Morbid (severe) obesity due to excess calories; G47.30 Sleep apnea, unspecified; J44.9 Chronic obstructive pulmonary disease, unspecified; K21.9 Gastro-esophageal reflux disease without esophagitis; Z86.711 Personal history of pulmonary embolism; Z86.16 Personal history of COVID-19; Z87.891 Personal history of nicotine dependence; Z79.4 Long term (current) use of insulin; Z68.41 Body mass index [BMI] 40.0-44.9, adult ==

== ENCOUNTER → 2020-12-09 | Outpatient (CLI) | payer MEDICARE, OTHER | LOC: M.WC 09:43 | PROVIDERS: ATTEND Surgery | DX: E11.622 Type 2 diabetes mellitus with other skin ulcer (principal); L89.154 Pressure ulcer of sacral region, stage 4; L98.492 Non-pressure chronic ulcer of skin of other sites with fat layer exposed; E11.40 Type 2 diabetes mellitus with diabetic neuropathy, unspecified; E66.01 Morbid (severe) obesity due to excess calories; G47.30 Sleep apnea, unspecified; J44.9 Chronic obstructive pulmonary disease, unspecified; K21.9 Gastro-esophageal reflux disease without esophagitis; Z86.711 Personal history of pulmonary embolism; Z86.16 Personal history of COVID-19; Z87.891 Personal history of nicotine dependence; Z79.4 Long term (current) use of insulin; Z68.41 Body mass index [BMI] 40.0-44.9, adult ==

== ENCOUNTER 2020-12-11 13:43 | Inpatient (IN) | payer OTHER ==
[~2020-12-11] VITALS: Ht 180.3 cm; Wt 145.8 kg
[2020-12-11 13:44] VITALS: BP 124/60
[2020-12-11 14:16] LABS: ABSOLUTE BASOPHILS 0.1 thou/uL (0.0-0.2); ABSOLUTE EOSINOPHILS 0.2 thou/uL (0.0-0.7); ABSOLUTE LYMPHOCYTES 1.6 thou/uL (0.8-5.3); ABSOLUTE MONOCYTES 0.6 thou/uL (0.0-1.2); ABSOLUTE NEUTROPHILS 10.7 thou/uL (1.6-8.1); BASOPHILS 0.7 %; EOSINOPHILS 1.4 %; HEMATOCRIT 36.6 % (42.0-52.0); LYMPHOCYTES 12.4 %; MCH 28.2 pg (26.0-34.0); MCHC 32.7 g/dL (28.0-37.0); MCV 86.2 fL (80.0-100.0); MONOCYTES 4.8 %; MPV 8.5 fl. (7.2-11.1); NUCLEATED RBCS 0 /100WBC; PLATELET COUNT* 235 thou/uL (150-400); POLYS 80.7 %; RBC 4.25 mil/uL (4.50-6.00); RDW-CV 15.9 % (10.5-14.5); WBC 13.3 thou/uL (4.0-11.0)
[2020-12-11 14:26] LABS: CREATININE 1.5 mg/dL (0.6-1.3); POTASSIUM 3.8 mmol/L (3.5-5.1)
[2020-12-11 14:39] LABS: ALBUMIN 2.8 g/dL (3.4-5.0); TOTAL BILIRUBIN 0.6 mg/dL (<0.1-1.0); TOTAL PROTEIN 7.2 g/dL (6.4-8.2)
--- NOTE | 2020-12-11 14:55 | EKG ---
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: [facility] : 1945 Requested By: Zev Muñoz Order Number: [id number] MD: Jason Mora Measurements Intervals [place] Rate: 104 P: 4 NV: 131 QRS: -20 QRSD: 93 T: 66 QT: 338 QTc: 445 Interpretive Statements Sinus tachycardia Inferior infarct, old Compared to ECG 10/21/2020 15:27:05 no change Electronically Signed On 12-11-2020 14:55:27 CDT by Jason Mora [email or web address] <ELECTRONICALLY SIGNED> By: Jason Mora MD, [facility] 12/11/20 1455 1350 1350 Jason Mora MD, [facility] /EPI
[2020-12-11 16:17] LABS: URINE BILIRUBIN NEGATIVE (Negative); URINE BLOOD NEGATIVE (Negative); URINE CLARITY CLEAR; URINE COLOR YELLOW; URINE GLUCOSE-RANDOM 1+ (Negative); URINE KETONES NEGATIVE (Negative); URINE LEUKOCYTES-REFLEX NEGATIVE (Negative); URINE NITRITE-REFLEX NEGATIVE (Negative); URINE PROTEIN 1+ (Negative); URINE SPECIFIC GRAVITY 1.025 (1.005-1.030); URINE UROBILINOGEN 0.2 E.U./dl (0.2-1.0)
[2020-12-11 18:39] VITALS: BP 126/72
[2020-12-11 19:00] VITALS: BP 92/33
[2020-12-11 20:00] VITALS: BP 113/43
[2020-12-11] MEDS ORDERED: OXYCODONE HCL 55 MG PO (21:23)
[2020-12-11] MEDS ORDERED: VISTARIL 25 MG25 M1 PO (21:24)
[2020-12-12 00:07] VITALS: BP 90/51
[2020-12-12 04:36] LABS: ABSOLUTE EOSINOPHILS 0.3 thou/uL (0.0-0.7); ABSOLUTE LYMPHOCYTES 2.5 thou/uL (0.8-5.3); ABSOLUTE MONOCYTES 0.6 thou/uL (0.0-1.2); ABSOLUTE NEUTROPHILS 7.2 thou/uL (1.6-8.1); BASOPHILS 0.4 %; EOSINOPHILS 2.5 %; HEMATOCRIT 32.7 % (42.0-52.0); HEMOGLOBIN 10.7 gm/dL (14.0-18.0); LYMPHOCYTES 23.9 %; MCH 28.2 pg (26.0-34.0); MCHC 32.6 g/dL (28.0-37.0); MCV 86.6 fL (80.0-100.0); MONOCYTES 5.7 %; MPV 8.8 fl. (7.2-11.1); NUCLEATED RBCS 0 /100WBC; PLATELET COUNT* 201 thou/uL (150-400); POLYS 67.5 %; RBC 3.78 mil/uL (4.50-6.00); RDW-CV 15.6 % (10.5-14.5); WBC 10.6 thou/uL (4.0-11.0)
[2020-12-12 04:48] LABS: CALCIUM 9.2 mg/dL (8.5-10.1); CREATININE 1.4 mg/dL (0.6-1.3)
[2020-12-12 06:55] VITALS: BP 94/59
[2020-12-12 08:34] VITALS: BP 123/49
[2020-12-12 12:00] VITALS: BP 117/58
[2020-12-12 16:08] VITALS: BP 120/52
[2020-12-12 20:00] VITALS: BP 117/58
[2020-12-13] VITALS (7 sets, daily range): BP systolic 109–131; BP diastolic 46–77
[2020-12-13 03:57] LABS: ABSOLUTE EOSINOPHILS 0.3 thou/uL (0.0-0.7); ABSOLUTE LYMPHOCYTES 2.3 thou/uL (0.8-5.3); ABSOLUTE MONOCYTES 0.5 thou/uL (0.0-1.2); ABSOLUTE NEUTROPHILS 3.6 thou/uL (1.6-8.1); BASOPHILS 0.6 %; EOSINOPHILS 3.8 %; HEMATOCRIT 32.4 % (42.0-52.0); HEMOGLOBIN 10.5 gm/dL (14.0-18.0); LYMPHOCYTES 34.4 %; MCH 28.3 pg (26.0-34.0); MCHC 32.4 g/dL (28.0-37.0); MCV 87.3 fL (80.0-100.0); MONOCYTES 7.3 %; MPV 8.6 fl. (7.2-11.1); NUCLEATED RBCS 0 /100WBC; PLATELET COUNT* 215 thou/uL (150-400); POLYS 53.9 %; RBC 3.71 mil/uL (4.50-6.00); RDW-CV 15.5 % (10.5-14.5); WBC 6.6 thou/uL (4.0-11.0)
[2020-12-13 04:12] LABS: CALCIUM 9.1 mg/dL (8.5-10.1); CREATININE 1.4 mg/dL (0.6-1.3); POTASSIUM 3.7 mmol/L (3.5-5.1)
[2020-12-14] VITALS (8 sets, daily range): BP systolic 112–122; BP diastolic 33–60
[2020-12-14 04:53] LABS: HEMATOCRIT 32.4 % (42.0-52.0); HEMOGLOBIN 10.8 gm/dL (14.0-18.0); MCH 28.5 pg (26.0-34.0); MCHC 33.2 g/dL (28.0-37.0); MCV 85.9 fL (80.0-100.0); MPV 8.4 fl. (7.2-11.1); RBC 3.77 mil/uL (4.50-6.00); RDW-CV 15.5 % (10.5-14.5); WBC 5.8 thou/uL (4.0-11.0)
[2020-12-14 05:15] LABS: CALCIUM 9.1 mg/dL (8.5-10.1); CREATININE 1.3 mg/dL (0.6-1.3); POTASSIUM 3.6 mmol/L (3.5-5.1)
[2020-12-14] MEDS ORDERED: CEFPODOXIME PR200 M1 PO (12:57)
== END 2020-12-14 18:45 | disposition home or self-care (01) | DRG 177 ==
LOC: M.ERS 13:43 → M.TBA-ER 15:43 → M.2W 15:43
PROVIDERS: Emergency Medicine Emergency Medical Services; Family Medicine; ADMIT Internal Medicine; ATTEND Internal Medicine
PROC: 5A09357 Assistance with Respiratory Ventilation, Less than 24 Consecutive Hours, Continuous Positive Airway Pressure (ICD-10-PCS; principal; 2020-12-12)
PROC: 5A09357 Assistance with Respiratory Ventilation, Less than 24 Consecutive Hours, Continuous Positive Airway Pressure (ICD-10-PCS; 2020-12-13)
DX: J15.6 Pneumonia due to other Gram-negative bacteria (principal); G92 Toxic encephalopathy; L89.154 Pressure ulcer of sacral region, stage 4; Z68.41 Body mass index [BMI] 40.0-44.9, adult; N17.9 Acute kidney failure, unspecified; J96.10 Chronic respiratory failure, unspecified whether with hypoxia or hypercapnia; E66.2 Morbid (severe) obesity with alveolar hypoventilation; R65.10 Systemic inflammatory response syndrome (SIRS) of non-infectious origin without acute organ dysfunction; E11.22 Type 2 diabetes mellitus with diabetic chronic kidney disease; N18.9 Chronic kidney disease, unspecified; M19.90 Unspecified osteoarthritis, unspecified site; E11.65 Type 2 diabetes mellitus with hyperglycemia; I12.9 Hypertensive chronic kidney disease with stage 1 through stage 4 chronic kidney disease, or unspecified chronic kidney disease; J44.9 Chronic obstructive pulmonary disease, unspecified; I25.10 Atherosclerotic heart disease of native coronary artery without angina pectoris; Z96.653 Presence of artificial knee joint, bilateral; Z96.612 Presence of left artificial shoulder joint; Z96.611 Presence of right artificial shoulder joint; Z20.822 Contact with and (suspected) exposure to COVID-19; Z86.711 Personal history of pulmonary embolism; Z86.16 Personal history of COVID-19; Z79.4 Long term (current) use of insulin; Z79.899 Other long term (current) drug therapy; Z79.01 Long term (current) use of anticoagulants; Z88.1 Allergy status to other antibiotic agents; Z88.5 Allergy status to narcotic agent; Z91.010 Allergy to peanuts; Z88.0 Allergy status to penicillin; Z88.8 Allergy status to other drugs, medicaments and biological substances; Z91.09 Other allergy status, other than to drugs and biological substances

== ENCOUNTER → 2020-12-23 | Outpatient (CLI) | payer MEDICARE, OTHER ==
[~2020-12-23] MED LIST changes: +CEFPODOXIME PR200 M1 PO; +OXYCODONE HCL 55 MG PO; +VISTARIL 25 MG25 M1 PO
== END ==
LOC: M.WC 12-16 10:00
PROVIDERS: ATTEND Surgery
DX: E11.622 Type 2 diabetes mellitus with other skin ulcer (principal); L89.154 Pressure ulcer of sacral region, stage 4; L98.492 Non-pressure chronic ulcer of skin of other sites with fat layer exposed; E11.40 Type 2 diabetes mellitus with diabetic neuropathy, unspecified; E66.01 Morbid (severe) obesity due to excess calories; G47.30 Sleep apnea, unspecified; J44.9 Chronic obstructive pulmonary disease, unspecified; K21.9 Gastro-esophageal reflux disease without esophagitis; Z86.711 Personal history of pulmonary embolism; Z86.16 Personal history of COVID-19; Z87.891 Personal history of nicotine dependence; Z79.4 Long term (current) use of insulin; Z68.41 Body mass index [BMI] 40.0-44.9, adult

== ENCOUNTER → 2020-12-28 | Outpatient (CLI) | payer MEDICARE, OTHER | LOC: M.PC 08:53 | PROVIDERS: ATTEND Physical Medicine & Rehabilitation | DX: M51.16 Intervertebral disc disorders with radiculopathy, lumbar region (principal); M47.26 Other spondylosis with radiculopathy, lumbar region; M79.604 Pain in right leg ==

== ENCOUNTER → 2020-12-30 | Outpatient (CLI) | payer MEDICARE, OTHER | LOC: M.WC 10:01 | PROVIDERS: ATTEND Surgery | DX: E11.622 Type 2 diabetes mellitus with other skin ulcer (principal); L89.154 Pressure ulcer of sacral region, stage 4; L98.492 Non-pressure chronic ulcer of skin of other sites with fat layer exposed; E11.40 Type 2 diabetes mellitus with diabetic neuropathy, unspecified; E66.01 Morbid (severe) obesity due to excess calories; G47.30 Sleep apnea, unspecified; J44.9 Chronic obstructive pulmonary disease, unspecified; K21.9 Gastro-esophageal reflux disease without esophagitis; Z86.711 Personal history of pulmonary embolism; Z86.16 Personal history of COVID-19; Z87.891 Personal history of nicotine dependence; Z79.4 Long term (current) use of insulin; Z68.41 Body mass index [BMI] 40.0-44.9, adult ==

== ENCOUNTER → 2021-01-06 | Outpatient (CLI) | payer MEDICARE, OTHER | LOC: M.WC 09:43 | PROVIDERS: ATTEND Surgery | DX: E11.622 Type 2 diabetes mellitus with other skin ulcer (principal); L89.154 Pressure ulcer of sacral region, stage 4; L98.492 Non-pressure chronic ulcer of skin of other sites with fat layer exposed; E11.40 Type 2 diabetes mellitus with diabetic neuropathy, unspecified; E66.01 Morbid (severe) obesity due to excess calories; G47.30 Sleep apnea, unspecified; J44.9 Chronic obstructive pulmonary disease, unspecified; K21.9 Gastro-esophageal reflux disease without esophagitis; Z86.711 Personal history of pulmonary embolism; Z86.16 Personal history of COVID-19; Z87.891 Personal history of nicotine dependence; Z79.4 Long term (current) use of insulin; Z68.41 Body mass index [BMI] 40.0-44.9, adult ==

== ENCOUNTER → 2021-01-13 | Outpatient (CLI) | payer MEDICARE, OTHER | LOC: M.WC 09:43 | PROVIDERS: ATTEND Surgery | DX: E11.622 Type 2 diabetes mellitus with other skin ulcer (principal); L89.154 Pressure ulcer of sacral region, stage 4; L98.492 Non-pressure chronic ulcer of skin of other sites with fat layer exposed; E11.40 Type 2 diabetes mellitus with diabetic neuropathy, unspecified; E66.01 Morbid (severe) obesity due to excess calories; G47.30 Sleep apnea, unspecified; J44.9 Chronic obstructive pulmonary disease, unspecified; K21.9 Gastro-esophageal reflux disease without esophagitis; Z86.711 Personal history of pulmonary embolism; Z86.16 Personal history of COVID-19; Z87.891 Personal history of nicotine dependence; Z79.4 Long term (current) use of insulin; Z68.41 Body mass index [BMI] 40.0-44.9, adult ==

== ENCOUNTER 2021-01-20 12:42 | Emergency (ER) | payer OTHER ==
[~2021-01-20] VITALS: Ht 182.9 cm; Wt 136.1 kg
[~2021-01-20 12:42] MED LIST changes: -NORCO5 PO
[2021-01-20] MEDS ORDERED: NORCO5 PO (14:33)
[2021-01-20 15:34] VITALS: BP 130/61
[2021-01-21] MEDS ORDERED: NORCO5 PO (10:21)
== END 2021-01-20 15:34 | disposition home or self-care (01) ==
LOC: M.ERS 12:42
DX: S52.514A Nondisplaced fracture of right radial styloid process, initial encounter for closed fracture (principal); J44.9 Chronic obstructive pulmonary disease, unspecified; I12.9 Hypertensive chronic kidney disease with stage 1 through stage 4 chronic kidney disease, or unspecified chronic kidney disease; E11.22 Type 2 diabetes mellitus with diabetic chronic kidney disease; N18.9 Chronic kidney disease, unspecified; Z87.891 Personal history of nicotine dependence; Z91.010 Allergy to peanuts; Z88.6 Allergy status to analgesic agent; Z88.8 Allergy status to other drugs, medicaments and biological substances; Z79.899 Other long term (current) drug therapy; Z79.4 Long term (current) use of insulin; Z86.711 Personal history of pulmonary embolism; W18.09XA Striking against other object with subsequent fall, initial encounter; Y93.89 Activity, other specified; Y92.89 Other specified places as the place of occurrence of the external cause; Y99.9 Unspecified external cause status

== ENCOUNTER → 2021-01-20 | Outpatient (CLI) | payer MEDICARE, OTHER ==
[~2021-01-20] MED LIST changes: +NORCO5 PO
== END ==
LOC: M.WC 09:00
PROVIDERS: ATTEND Surgery
DX: E11.622 Type 2 diabetes mellitus with other skin ulcer (principal); L89.154 Pressure ulcer of sacral region, stage 4; L98.492 Non-pressure chronic ulcer of skin of other sites with fat layer exposed; E11.40 Type 2 diabetes mellitus with diabetic neuropathy, unspecified; E66.01 Morbid (severe) obesity due to excess calories; G47.30 Sleep apnea, unspecified; J44.9 Chronic obstructive pulmonary disease, unspecified; K21.9 Gastro-esophageal reflux disease without esophagitis; Z86.711 Personal history of pulmonary embolism; Z86.16 Personal history of COVID-19; Z87.891 Personal history of nicotine dependence; Z79.4 Long term (current) use of insulin; Z68.41 Body mass index [BMI] 40.0-44.9, adult

== ENCOUNTER 2021-01-27 14:03 | Inpatient (IN) | payer OTHER ==
[~2021-01-27] VITALS: Ht 180.3 cm; Wt 171.0 kg
[2021-01-27 14:07] VITALS: BP 157/73
[2021-01-27 14:30] LABS: ABSOLUTE BASOPHILS 0.2 thou/uL (0.0-0.2); ABSOLUTE EOSINOPHILS 0.2 thou/uL (0.0-0.7); ABSOLUTE LYMPHOCYTES 1.9 thou/uL (0.8-5.3); ABSOLUTE MONOCYTES 0.6 thou/uL (0.0-1.2); ABSOLUTE NEUTROPHILS 8.2 thou/uL (1.6-8.1); BASOPHILS 1.4 %; EOSINOPHILS 1.6 %; HEMATOCRIT 36.4 % (42.0-52.0); HEMOGLOBIN 12.1 gm/dL (14.0-18.0); MCH 28.1 pg (26.0-34.0); MCHC 33.2 g/dL (28.0-37.0); MCV 84.6 fL (80.0-100.0); MONOCYTES 5.1 %; MPV 8.3 fl. (7.2-11.1); NUCLEATED RBCS 0 /100WBC; PLATELET COUNT* 290 thou/uL (150-400); POLYS 74.9 %; RDW-CV 14.9 % (10.5-14.5)
[2021-01-27 14:57] LABS: CALCIUM 9.3 mg/dL (8.5-10.1); CREATININE 1.8 mg/dL (0.6-1.3)
[2021-01-27 15:02] LABS: ALBUMIN 2.9 g/dL (3.4-5.0); TOTAL BILIRUBIN 0.2 mg/dL (<0.1-1.0); TOTAL PROTEIN 7.2 g/dL (6.4-8.2)
[2021-01-27 15:55] VITALS: BP 139/60
--- NOTE | 2021-01-27 17:18 | NUR ---
PT ORIENTED TO ROOM AND UNIT, BED LOW AND LOCKED, SIDE RAILS UP X3, CALL LIGHT IN REACH, TELE APPLIED. WILL CONTINUE TO ASSESS.
--- NOTE | 2021-01-27 18:42 | NUR ---
UNABLE TO TAKE ADMIT PHOTO OFF SACRAL WOUND KISS WOUND MEASURMENT STICKERS ARE NOT AVAILABLE.
[2021-01-27 20:00] VITALS: BP 118/49
[2021-01-28] VITALS: BP 145/65
[2021-01-28 03:30] VITALS: BP 138/88
[2021-01-28 04:28] LABS: ABSOLUTE EOSINOPHILS 0.2 thou/uL (0.0-0.7); ABSOLUTE LYMPHOCYTES 1.4 thou/uL (0.8-5.3); ABSOLUTE MONOCYTES 0.5 thou/uL (0.0-1.2); ABSOLUTE NEUTROPHILS 6.3 thou/uL (1.6-8.1); BASOPHILS 0.4 %; EOSINOPHILS 1.8 %; HEMATOCRIT 31.8 % (42.0-52.0); HEMOGLOBIN 10.5 gm/dL (14.0-18.0); LYMPHOCYTES 16.2 %; MCH 28.2 pg (26.0-34.0); MCHC 32.9 g/dL (28.0-37.0); MCV 85.7 fL (80.0-100.0); MONOCYTES 6.5 %; MPV 8.6 fl. (7.2-11.1); NUCLEATED RBCS 0 /100WBC; PLATELET COUNT* 278 thou/uL (150-400); POLYS 75.1 %; RBC 3.71 mil/uL (4.50-6.00); RDW-CV 14.7 % (10.5-14.5); WBC 8.4 thou/uL (4.0-11.0)
[2021-01-28 04:38] LABS: CALCIUM 8.4 mg/dL (8.5-10.1); CREATININE 1.6 mg/dL (0.6-1.3); POTASSIUM 3.9 mmol/L (3.5-5.1)
[2021-01-28 08:00] VITALS: BP 115/70
--- NOTE | 2021-01-28 11:41 | EKG ---
[place] [address] ELECTROCARDIOGRAM REPORT Name: STEPHANIE NARANJO Room: [address] IN .R.#: [id number] Admission: 01/27/21 Attend Phys: Barry Napier, Discharge: Date of : 47 Date of Service: 01/27/21 1423 Report #: [id number] THIS REPORT FOR: //name// [facility] ED Test Date: 2021-01-27 Test Time: 14:23:03 Pat Name: STEPHANIE NARANJO Department: Room: 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 : 1945 Requested By: Jude Alberto Order Number: [id number] MD: Jason Mora Measurements Intervals [place] Rate: 104 P: 20 SD: 134 QRS: -4 QRSD: 87 T: 63 QT: 339 QTc: 446 Interpretive Statements Sinus tachycardia Low voltage, precordial leads Probable anteroseptal infarct, old Compared to ECG 12/11/2020 13:50:11 Myocardial infarct finding still present Electronically Signed On 01-28-2021 11:40:53 CDT by Jason Mora [email or web address] <ELECTRONICALLY SIGNED> By: Jason Mora MD, [facility] 01/28/21 1140 1423 1423 Jason Mora MD, [facility] /EPI
--- NOTE | 2021-01-28 12:11 | NUR ---
PT LIVES HOME WITH SPOUSE WHO WAS AT BEDSIDE. IS PT'S 24/7 C/G. PT HAS HOME O2 AT 3L NOC AND PRN DURING THE DAY. [facility]. PT HAS WALKER, WC AND CANE. PT IS CURRENT WITH [facility] AND WOULD LIKE RESUMPTION OF CARE AT [place]. PT HAS HX AT [facility]. STATED SHE DOESNT WANT SNF ANYMORE SHE WILL PROVIDE CARE. WOUND CARE IS FOLLOWING.
[2021-01-28 12:36] VITALS: BP 142/61
--- NOTE | 2021-01-28 15:57 | NUR ---
WOUND NURSE: PATIENT WAS SEEN BY DR. Caity EDWARD DO. TO ASSESS COCCYX WOUND AND SHE CHANGED THE DRESSING ALSO. A RESULT, I PLAN TO SEE PATIENT TOMORROW FOR ASSESSMENT AND SN POT DEVELOPMENT.
[2021-01-28 16:33] VITALS: BP 113/51
[2021-01-28 19:35] LABS: URINE BILIRUBIN NEGATIVE (Negative); URINE BLOOD NEGATIVE (Negative); URINE CLARITY CLEAR; URINE COLOR YELLOW; URINE GLUCOSE-RANDOM NEGATIVE (Negative); URINE KETONES NEGATIVE (Negative); URINE LEUKOCYTES-REFLEX NEGATIVE (Negative); URINE NITRITE-REFLEX NEGATIVE (Negative); URINE PROTEIN TRACE (Negative); URINE UROBILINOGEN 0.2 E.U./dl (0.2-1.0)
[2021-01-28 20:00] VITALS: BP 106/48
[2021-01-29 00:12] VITALS: BP 138/62
--- NOTE | 2021-01-29 02:42 | NUR ---
PT ALERT ORIENTED. IBUPROPHEN GIVEN FOR FEVER AT HS WITH GOOD RESPONCE. PT AFEBRILE AFTER IBUPROPHEN. DETHISTLER OPERATOR TRACING SR/SR. PT ON HOME BIPAP WITH 2 LITER O2. TURN Q 2 HRS.
[2021-01-29 04:50] VITALS: BP 132/59
[2021-01-29 05:59] LABS: ABSOLUTE EOSINOPHILS 0.2 thou/uL (0.0-0.7); ABSOLUTE MONOCYTES 0.6 thou/uL (0.0-1.2); ABSOLUTE NEUTROPHILS 2.2 thou/uL (1.6-8.1); BASOPHILS 0.6 %; EOSINOPHILS 5.3 %; HEMATOCRIT 30.1 % (42.0-52.0); HEMOGLOBIN 10.1 gm/dL (14.0-18.0); LYMPHOCYTES 25.6 %; MCHC 33.5 g/dL (28.0-37.0); MCV 83.7 fL (80.0-100.0); MONOCYTES 13.8 %; MPV 8.4 fl. (7.2-11.1); NUCLEATED RBCS 0 /100WBC; PLATELET COUNT* 221 thou/uL (150-400); POLYS 54.7 %; RDW-CV 14.7 % (10.5-14.5)
[2021-01-29 06:06] LABS: CALCIUM 8.5 mg/dL (8.5-10.1); CREATININE 1.6 mg/dL (0.6-1.3); POTASSIUM 3.7 mmol/L (3.5-5.1)
[2021-01-29 08:00] VITALS: BP 118/46
[2021-01-29 12:00] VITALS: BP 108/54
--- NOTE | 2021-01-29 12:30 | NUR ---
PLAN OF CARE: PHYSICIAN INFORMS THAT THE PT MAY BE READY TO D/C OVER THE WEEKEND. PT CURRENT WITH [facility] AND PLANS TO RESUME HH WITH [facility] AT D/C. [facility] WILL NEED TO BE CONTACTED AND D/C HH ORDERS WILL NEED TO BE FAXED AT D/C. CM WILL REMAIN AVAILABLE TO ASSIST AND FOLLOW NEEDED. [facility] PHONE: [phone] FAX: [phone]
--- NOTE | 2021-01-29 14:02 | NUR ---
WOUND NURSE: PATIENT SEEN TO ADDRESS HEALING COCCYGEAL STAGE 4 PRESSURE INJUIRY. MEASURES 3.0 X 1.0 X 2.2 CM. CONTAINS PINK GRANULATION TISSUE IN THE WOUND BED. DOES NOT PROBE TO BONE. CONTAINS MODERATE AMOUNT OF SEROUSANGUINOUS DRAINAGE ON THE OLD DRESSING. NO ACTIVE DRAINAGE FROM THE WOUND. THERE IS NO PERIWOUND REDNESS, WARMTH, OR INDURATION NOTED. THERE IS NO ODOR. CLEANSED WITH SOAP AND WATER, RINSED WITH WATER, THEN PATTED DRY. APPLIED Z-GUARD PASTE TO INTACT PERIWOUND TISSUE. PACKED LIGHTLY WITH STRIP OF AQUACEL AG, THEN COVERED WITH AN ADDITIONAL SQUARE UNDER BORDERED FOAM DRESSING. THEN SECURED EDGES OF BORDERED FOAM DRESSING WITH SURE SITE TRANSPARENT DRESSING. THIS WAS TOLERATED WELL BY THE PATIENT. PATIENT INSTRUCTED ON MEASURES TO PROMOTE HEALING E.G., OFFLOADING WOUND BY FREQUENT REPOSITIONING, AND NEED FOR INCREASED PROTEIN IN DIET. PATIENT STATES HE PERFORMS BOTH.
[2021-01-29 15:57] VITALS: BP 117/51
[2021-01-29 20:00] VITALS: BP 131/61
[2021-01-30] VITALS: BP 100/47
[2021-01-30 03:44] VITALS: BP 108/62
--- NOTE | 2021-01-30 05:25 | NUR ---
PT ALERT ORIENTED MUCH MORE TALKATIVE THIS SHIFT. TURN Q 2 HRS. SHAFT TENDER TRACING SR. AFEBRILE. O2 2 LITERS DAY. BIPAP HS.
[2021-01-30 08:00] VITALS: BP 123/55
[2021-01-30 13:42] VITALS: BP 109/67
[2021-01-30 16:36] VITALS: BP 125/70
--- NOTE | 2021-01-30 18:46 | NUR ---
PT A&O x4. GETS OUT OF BED, MIN ASSIST x1 WITH THE HELP OF A WALKER. SAT IN A RECLINER FOR ALMOST 5 HOURS. VOIDING PER URINAL. VSS. O2 SUPP AT 3L/MIN. VISITED BRIEFLY.
[2021-01-31 00:24] VITALS: BP 108/46
[2021-01-31 04:09] VITALS: BP 131/70
--- NOTE | 2021-01-31 06:16 | NUR ---
ASSUMED CARE OF PATIENT AT APPROXIMATELY 1930. ASSESSMENT CHARTED. AT APPROXIMATELY 0300 PATIENT REQUESTED MEDICATION FOR COUGH. ADMINISTERED SCHEDULED TESSELON PEARLS. AN HOUR LATER PATIENT REQUESTED BREATHING TX. CALLED RT AND RT ADMINISTERED PRN ALBUTEROL TX. AT APPROXIMATELY 0500 PATIENT C/O SOA. UPON ASSESSMENT PATIENT OBSERVED RESTING QUIETLY WITH EYES CLOSED AND DID NOT APPEAR TO BE IN DISTRESS. PATIENT ON CPAP AND O2 SAT 97%. PLACED PATIENT IN UPRIGHT POSITION AND ADMINISTERED PRN PAIN MEDICATION AND SCHEDULED METHYLPREDNISONE. AROUND 0600 PATIENT C/O SOA AGAIN AND REQUESTED ANOTHER BREATHING TX. PATIENT UNABLE TO HAVE ANOTHER PRN BREATHING TX UNTIL 0800. PATIENT OXYGEN SATURATION 98% AND AGAIN PATIENT DID NOT APPEAR TO BE IN DISTRESS.
[2021-01-31 13:00] VITALS: BP 134/56
[2021-01-31 16:25] VITALS: BP 123/63
[2021-01-31 18:30] VITALS: BP 123/63
--- NOTE | 2021-01-31 18:39 | NUR ---
RESUMED PATIENT CARE AT 0700. ALL ASSESSMENTS COMPLETED CHARTED. PT HAD A HARD TIME WITH COUGHING TODAY, HAD SOME EXTRA BREATHING TREATMENTS AND MEDS ADJUSTED SLIGHTLY. CARDIAC MONITORING IN PLACE; FALL RISK PRECAUTIONS IN PLACE. MOVED PT ONTO A BARIATRIC BED FOR COMFORT TODAY. CLEANED AND CHANGED DRESSING ON COCCYX WOUND.
[2021-01-31 20:00] VITALS: BP 135/72
[2021-02-01] VITALS: BP 150/72
[2021-02-01 04:00] VITALS: BP 155/62
[2021-02-01 04:51] LABS: HEMATOCRIT 31.4 % (42.0-52.0); HEMOGLOBIN 10.4 gm/dL (14.0-18.0); MCH 27.7 pg (26.0-34.0); MCV 83.9 fL (80.0-100.0); MPV 8.7 fl. (7.2-11.1); RBC 3.75 mil/uL (4.50-6.00); RDW-CV 14.8 % (10.5-14.5); WBC 8.2 thou/uL (4.0-11.0)
[2021-02-01 05:19] LABS: ALBUMIN 2.6 g/dL (3.4-5.0); CALCIUM 9.4 mg/dL (8.5-10.1); CREATININE 1.6 mg/dL (0.6-1.3); POTASSIUM 4.6 mmol/L (3.5-5.1); TOTAL BILIRUBIN 0.1 mg/dL (<0.1-1.0); TOTAL PROTEIN 6.7 g/dL (6.4-8.2)
--- NOTE | 2021-02-01 07:35 | NUR ---
ASSUMED CARE OF PT AFTER REPORT AT 1930. PT A&OX4. VSS. PHYSICAL ASSESSMENT COMPLETED AND CHARTED. PT ON O2 AT 3LNC/CPAP AT HS. PT TRACING SR ON TELE. PT TURNED TO SIDES. PT COMPLAINED OF BACK PAIN-MED GIVEN PER OCT. PT WITH DECUBITUS ULCER, RIGHT ARM SKIN TEAR & LEFT KNEE ABRASION-PHOTOGRAPH TAKEN. FALL PRECAUTIONS IN PLACE. CALL LIGHT WITHIN REACH.
[2021-02-01 08:26] VITALS: BP 133/62
[2021-02-01 11:26] LABS: BE -2.2 mmol/L (-2 to +3); PCO2 38.3 mmHg (35.0-45.0); pH 7.386 (7.340-7.450)
[2021-02-01 12:00] VITALS: BP 124/53
--- NOTE | 2021-02-01 13:24 | NUR ---
PLAN OF CARE: PHYSICIAN INFORMS THAT THE PT IS NOT MEDICALLY STABLE FOR D/C AT THIS TIME. PULMONARY CONSULT PENDING. PRIOR TO ADMIT PT HAD HH WITH [facility] AND HAD INITIALLY PLANNED TO RETURN HOME AT D/C AND RESUME HH WITH [facility]. PT'S SPOUSE HAD INFORMED ON ADMIT THAT SHE DID NOT WANT THE PT TO GO TO SNF AT D/C SHE PROVIDED CARES FOR HIM. HOWEVER PT CURRENTLY ON IN ABT'S AND HIS MOBILITY HAS DECLINED. P.T. INFORMED OF THE NEED TO F/U WITH PT TODAY TO ASSESS HIS MOBILITY TO ASSIST WITH D/C PLANNING. CM TO DISCUSS THIS WITH PHYSICIAN, PT AND HIS SPOUSE. CM WILL REMAIN AVAILABLE TO ASSIST AND FOLLOW NEEDED.
[2021-02-01 16:00] VITALS: BP 139/69
--- NOTE | 2021-02-01 18:55 | NUR ---
Pt tachypneic with loose cough and coarse breath snds. Received dose of furosemide IV today; diuresed well. Remains on 3L O2 per NC. VSS. Medicated for c/o pain to back and butt; see MAR. Turned and reposistioned q2h and prn. Will continue to monitor.
[2021-02-01 20:00] VITALS: BP 131/84
[2021-02-02 00:52] VITALS: BP 147/78
--- NOTE | 2021-02-02 03:05 | NUR ---
ASSUMED CARE FROM NIGHT RN , PT RESTING IN BED , PT CHANGED FROM CPAP TO BIPAP, PT APPEARS TO BE TOLERATING WELL. ADMINISTRATIVE SUPPORT [facility] SHOWS SR WITH PAC. WILL CONITINUE WITH CURRENT PLAN OF CARE.
[2021-02-02 04:38] LABS: HEMATOCRIT 31.9 % (42.0-52.0); HEMOGLOBIN 10.4 gm/dL (14.0-18.0); MCH 27.5 pg (26.0-34.0); MCHC 32.7 g/dL (28.0-37.0); MCV 84.1 fL (80.0-100.0); MPV 8.4 fl. (7.2-11.1); NUCLEATED RBCS 0 /100WBC; PLATELET COUNT* 227 thou/uL (150-400); RDW-CV 14.7 % (10.5-14.5); WBC 6.2 thou/uL (4.0-11.0)
[2021-02-02 04:47] VITALS: BP 134/62
[2021-02-02 04:59] LABS: ALBUMIN 2.6 g/dL (3.4-5.0); ALKALINE PHOSPHATASE 49 U/L (46-116); ANION GAP 4 mmol/L (7-16); BUN 35 mg/dL (7-18); CALCIUM 9.6 mg/dL (8.5-10.1); CHLORIDE 101 mmol/L (98-107); CO2 35 mmol/L (21-32); CREATININE 1.6 mg/dL (0.6-1.3); GLUCOSE 287 mg/dL (70-99); MAGNESIUM 2.2 mg/dL (1.8-2.4); POTASSIUM 4.6 mmol/L (3.5-5.1); SGOT 22 U/L (15-37); SGPT 19 U/L (30-65); SODIUM 140 mmol/L (136-145); TOTAL BILIRUBIN < 0.1 mg/dL (<0.1-1.0); TOTAL PROTEIN 6.8 g/dL (6.4-8.2)
[2021-02-02 06:42] LABS: ABSOLUTE LYMPHOCYTES 0.6 thou/uL (0.8-5.3); ABSOLUTE MONOCYTES 0.1 thou/uL (0.0-1.2); ABSOLUTE NEUTROPHILS 5.5 thou/uL (1.6-8.1); ATYPICAL LYMPHS 2 %; PLATELET ESTIMATE ADEQUATE
[2021-02-02 08:21] VITALS: BP 113/49
--- NOTE | 2021-02-02 08:58 | CON ---
[address] [address] CONSULTATION Name: STEPHANIE NARANJO Room: [address] IN ..#: [id number] Admission: 01/27/21 Attend Phys: Barry Napier MD Discharge: Date of : 47 Report #: [id number] THIS REPORT FOR: cc: James Estrada MD, Anthony MD Pervez,Ridge CASTANEDA ~ DOC #: [id number] Ridge Lemus MD DATE OF CONSULTATION: 02/01/2021 Consult has been requested by Dr. Khan. INDICATION FOR CONSULTATION: Shortness of breath. HISTORY OF PRESENT ILLNESS: A 75-year-old gentleman. I have seen him previously in this hospital about a year ago when he was admitted here with acute hypoxemic respiratory failure secondary to COVID-19. The patient had a prolonged stay on the ventilator. We eventually was successfully extubated and remained in the hospital for almost 2 months. The patient at that time had a VRE bacteremia in addition to bacterial pneumonia as well. He since then has also been admitted to [facility] with acute respiratory failure and has had more admissions to this hospital as well and an admission in October of this year, the patient was found to have acute pulmonary emboli since then he is anticoagulated, he now also has sacral decubitus ulcers. He has had a normal left ventricular ejection fraction on the previous echo. He previously used to be on Trilogy at night with oxygen. For financial reasons he has switched back to his old CPAP now. At this time, the patient was initially admitted on 01/27. The presentation is again with fever as well as shortness of breath and cough. The patient since then has been treated with levofloxacin and has also been on steroids. He is only on 2 liters of oxygen at this time, continues to have significant amounts of rattling mucus in the upper airway. He also continues to wheeze and remains short of breath which is the reason for this consultation. At this time, he is not having any upper respiratory complaints. He does have some swelling of lower extremities, does not have calf pain, has had disturbed sleep at night as well as sleepiness during the day. He answers to the negative for 12 questions for review of systems except as mentioned above. PAST MEDICAL HISTORY: COVID-19 with a prolonged stay in this hospital about 2 months last year, COPD has been on oxygen and Trilogy previously, but switched to his old CPAP due to financial reasons, obstructive sleep apnea, acute pulmonary emboli in October of this year since then has been on anticoagulation, left ventricular ejection fraction [place] [address] CONSULTATION Name: STEPHANIE NARANJO Room: [address] IN .R.#: [id number] Admission: 01/27/21 Attend Phys: Barry Napier MD Discharge: Date of : 47 Report #: [id number] significantly elevated on the echo this October in fact pulmonary artery systolic was 25, morbid obesity, decubitus ulcers, VRE bacteremia, gastroesophageal reflux disease, hypertension, congestive heart failure secondary to diastolic dysfunction, non-ST myocardial infarction last year. Mild Renal Insufficiency, creatine 1.2 last year but mostly in 1.4 range SOCIAL HISTORY: He has a previous history of smoking, has now discontinued. No known history of heavy alcohol use or illegal drug use. CURRENT MEDICATIONS: List in Personal Style Finder reviewed. HOME MEDICATIONS: List in Personal Style Finder reviewed. ALLERGIES: The various allergy listed in the record, the list is reviewed. FAMILY HISTORY: There is no pertinent family history known at this time. PHYSICAL EXAMINATION: GENERAL: He is alert, awake and oriented. VITAL SIGNS: Pulse of 86, blood pressure 139/69. He is saturating 92%. He is on 3 liters nasal cannula. He is afebrile with a temperature of 36.3. Body mass index is 53. HEENT: Head is normocephalic and atraumatic. Pupils are equal and reactive. There is no throat erythema. There is no thrush in his throat. His airways were fairly narrow, Mallampati is 4. NECK: Does not show raised JVP asymmetry, mass or lymph nodes. CHEST: Symmetrical expansion on inspection and palpation. On auscultation, breath sounds are bilaterally equal, but decreased. Expirations are prolonged. There are bilateral scattered wheezes. HEART: Regular. There is no murmur. ABDOMEN: Soft and nontender. EXTREMITIES: Lower extremities show 1+ edema bilaterally. There is no calf tenderness. SKIN: Dry and intact. NEUROLOGIC: Moves all extremities bilaterally equally and spontaneously. No focal deficit identified. LABORATORY DATA: The patient's chest x-ray from yesterday is in [facility] and is reviewed, does show bilateral infiltrates as well as some chronic changes, no significant change compared with the previous chest x-rays. The lab work also in [facility] reviewed. ASSESSMENT/PLAN: [address] [address] CONSULTATION Name: STEPHANIE NARANJO Room: [address] IN ..#: [id number] Admission: 01/27/21 Attend Phys: Barry Napier MD Discharge: Date of : 47 Report #: [id number] 1. Acute on chronic hypoxemic respiratory failure. The patient at this time still remains bronchospastic. Also, he does have some fluid overload as well. He does have some infiltrates on the chest x-ray and I suspect that he may have ongoing aspiration. All of these are likely contributing factors to his acute hypoxemic respiratory failure, previously used to be on Trilogy and oxygen while asleep and I recall that he used to do really well with Trilogy. Unfortunately, he gave up his Trilogy for financial reasons and is now using his old CPAP instead. For now, we will go ahead and put him on average volume assured pressure support with our BiPAP. I will check with the caser in regarding whether there will be any possibility to get his Trilogy back to him. 2. Chronic obstructive pulmonary disease exacerbation. He does appear to be bronchospastic. Therefore, I agree with increasing Solu-Medrol as ordered by Dr. Khan. We will also continue with current nebulizers and may need more insulin as a result. 3. Pulmonary infiltrates. There are infiltrates in the last chest x-ray as well as chronic changes. He has been on Levaquin, potentially if he fails to improve, we can consider broadening antibiotic coverage; however, since last year, he already had multiple antibiotics. Therefore, I did not broaden coverage for now. We will see if it is possible to obtain a sputum culture as well as a nasal swab for MRSA first before we consider changing his antibiotic for now and continued with levofloxacin. 4. Fluid overload/congestive heart failure secondary to diastolic dysfunction/chronic renal insufficiency. His creatinine did come down at one point to 1.2 last year, but mostly creatinine are mildly elevated. He does appear to be fluid overloaded at this time, but his creatinine is also elevated to 1.6. Therefore, for now, I did not order diuresis, certainly this will be a consideration if he fails to improve or if his creatinine improves. 5. Suspected ongoing aspiration. I will consult speech for swallow evaluation as well; however, it primarily appears to be related to the fact that he is lying down and having liquids and at times solid food as well, primarily we will treat that fully sitting him up whenever he eats. 6. History of acute pulmonary emboli in 10/2020 and note that he is on anticoagulation. 7. Mucus plugging. We will also give him Mucomyst. 8. C. difficile prophylaxis. We will continue Lactinex. 9. History of diabetes. Thanks for this consultation. Ridge Lemus MD AP/PUJA/[place] [address] CONSULTATION Name: STEPHANIE NARANJO Room: [address]#: [id number] Admission: 01/27/21 Attend Phys: Barry Napier MD Discharge: Date of : 47 Report #: [id number] <ELECTRONICALLY SIGNED> By: Ridge Lemus MD 02/02/21 0858 [id number] Lemus MD /nt
[2021-02-02 12:00] VITALS: BP 138/54
--- NOTE | 2021-02-02 15:12 | NUR ---
PLAN OF CARE: PHYSICIAN INFORMS THAT THE PT IS NOT MEDICALLY STABLE FOR D/C AT THIS TIME. PULMONARY CONSULTED AND NOW RECOMMENDING THAT PT HAVE TRILOGY AT D/C. CM SPOKE TO PT'S SPOUSE TO DISCUSS THIS AND PT'S CURRENT MOBILITY. PT'S SPOUSE INFORMS THAT THE PT HAD PREVIOUSLY HAD A TRILOGY THRU [facility] THAT THEY HAD PAID [id number] FOR, BUT HAD SENT IT BACK DUE TO INAFFORDABILITY. PT'S SPOUSE ALSO INFORMS THAT SHE IS NOT INTERESTED IN THE PT GOING TO SNF AT D/C SHE IS 'MORE THAN CAPABLE AND TRAINED TO PROVIDE CARE FOR HIM'. CM INFORMED PT'S SPOUSE THAT PER THE P.T. EVAL PT WAS ONLY ABLE TO WALK 4 SIDE STEPS, AND THAT THE STAFF HAD BEEN ASSISTING THE PT WITH ALL PERSONAL CARES (TOILETING, BATHING, AND BED MOBILITY) WELL THIS ADMIT. CM PROVIDED PT'S SPOUSE INFO AND EDUCATION IN REGARDS TO HOW THIS COULD IMPACT HER ABILITY TO PROVIDE APPROPRIATE CARE FOR THE PT AT HOME. PT'S SPOUSE CONTINUED TO INSIST THAT THIS IS NOT A PROBLEM ADN WILL TAKE THE PT HOME AT D/C AND RESUME HH WITH [facility]. CM WILL REMAIN AVAILABLE TO ASSIST AND FOLLOW NEEDED.
[2021-02-02 16:00] VITALS: BP 111/49
[2021-02-02 20:00] VITALS: BP 121/68
[2021-02-03 01:08] VITALS: BP 115/60
--- NOTE | 2021-02-03 01:48 | NUR ---
PT ALERT, ORIENTED, FORGETFUL. ON TURN SPECIALTY BED TURNING Q 2 HRS. PTA TRACING SR. O2 AT 4 LITERS NC. BIPAP HS.
[2021-02-03 04:30] LABS: CALCIUM 9.5 mg/dL (8.5-10.1); CREATININE 1.7 mg/dL (0.6-1.3); MAGNESIUM 2.3 mg/dL (1.8-2.4); POTASSIUM 4.5 mmol/L (3.5-5.1)
[2021-02-03 04:31] VITALS: BP 134/67
[2021-02-03 05:50] LABS: PLATELET ESTIMATE ADEQUATE
[2021-02-03 05:51] LABS: ANISOCYTOSIS 1+; POIKILOCYTOSIS 1+
[2021-02-03 05:57] LABS: ABSOLUTE LYMPHOCYTES 1.3 thou/uL (0.8-5.3); ABSOLUTE MONOCYTES 0.2 thou/uL (0.0-1.2); ABSOLUTE NEUTROPHILS 8.5 thou/uL (1.6-8.1); HEMATOCRIT 31.2 % (42.0-52.0); HEMOGLOBIN 10.5 gm/dL (14.0-18.0); MCH 27.9 pg (26.0-34.0); MCHC 33.6 g/dL (28.0-37.0); MCV 83.2 fL (80.0-100.0); MPV 8.4 fl. (7.2-11.1); PLATELET COUNT* 255 thou/uL (150-400); RBC 3.75 mil/uL (4.50-6.00); RDW-CV 14.4 % (10.5-14.5)
[2021-02-03 08:00] VITALS: BP 127/59
--- NOTE | 2021-02-03 15:31 | NUR ---
PLAN OF CARE: PHYSICIAN INFORMS THAT PT IS NOT MEDICALLY STABLE FOR D/C. PULM RECOMMEDING TRILOGY, BUT WILL NEED WRITE ORDER TO OBTAIN THROUGH [facility] AND PROGRESS NOTE TO SUPPORT NEED FOR DME. PT'S SPOUSE CONTINUES TO DECLINE SNF AT D/C AND PLANS FOR THE PT TO RETURN HOME AND RESUME HH WITH [facility] AT D/C. CM WILL REMAIN AVAILABLE TO ASSIST AND FOLLOW NEEDED.
[2021-02-03 16:00] VITALS: BP 126/69
--- NOTE | 2021-02-03 18:28 | NUR ---
RECEIVED REPORT AROUND 0715. ASSUMED CARE. VS AND ASSESSMENT CHARTED. IV INTACT RIGHT UPPER ARM MIDLINE. HEART MONITOR ATTACHED AT SR. PT UP IN CHAIR FOR MEALS. WOUND DRESSING CHANGED BY THIS SHIFT. Q2 TURNS WHILE IN BED. PAIN REPORT TO BOTTOM. MEDS GIVEN PER OCT. HOURLY ROUNDING PERFORMED. 4L NC. CALL LIGHT WITH IN REACH. WILL CONTINUE TO MONITOR.
[2021-02-03 20:00] VITALS: BP 143/72
[2021-02-03 23:47] VITALS: BP 142/68
[2021-02-04 07:54] LABS: ABSOLUTE LYMPHOCYTES 0.7 thou/uL (0.8-5.3); ABSOLUTE MONOCYTES 0.2 thou/uL (0.0-1.2); ABSOLUTE NEUTROPHILS 7.3 thou/uL (1.6-8.1); BASOPHILS 0.2 %; HEMATOCRIT 29.9 % (42.0-52.0); HEMOGLOBIN 10.2 gm/dL (14.0-18.0); MCH 28.4 pg (26.0-34.0); MCHC 34.1 g/dL (28.0-37.0); MCV 83.5 fL (80.0-100.0); MONOCYTES 2.5 %; MPV 8.4 fl. (7.2-11.1); NUCLEATED RBCS 0 /100WBC; PLATELET COUNT* 237 thou/uL (150-400); POLYS 88.3 %; RBC 3.58 mil/uL (4.50-6.00); RDW-CV 14.6 % (10.5-14.5); WBC 8.3 thou/uL (4.0-11.0)
[2021-02-04 08:00] VITALS: BP 135/74
[2021-02-04 08:51] LABS: ALBUMIN 2.5 g/dL (3.4-5.0); CREATININE 1.6 mg/dL (0.6-1.3); MAGNESIUM 2.2 mg/dL (1.8-2.4); POTASSIUM 4.6 mmol/L (3.5-5.1); TOTAL BILIRUBIN 0.2 mg/dL (<0.1-1.0); TOTAL PROTEIN 6.5 g/dL (6.4-8.2)
[2021-02-04 11:31] VITALS: BP 134/70
--- NOTE | 2021-02-04 12:19 | NUR ---
PLAN OF CARE: PHYSICIAN INFORMS OF PLAN FOR PT TO REMAIN INPT AT THIS TIME. PULM FOLLOWING AND RECOMMENDING TRILOGY AT D/C. PULM WILL NEED TO COMPLETE A WRITTEN ORDER FOR THE NON-INVASIVE VENTILATOR AND THEY HAVE BEEN INFORMED OF THIS. CM WILL NEED TO ARRANGE THIS DME THROUGH THE [facility], AND THIS MAY TAKE SOME TIME TO ARRANGE. SPOUSE INFORMS THAT SHE STILL PLANS FOR THE PT TO RETURN HOME AND RESUME HH AT D/C, SHE CONTINUES TO DECLINE SNF. CM WILL REMAIN AVAILABLE TO ASSIST AND FOLLOW NEEDED.
--- NOTE | 2021-02-04 15:13 | NUR ---
WOUND NURSE: PATIENT SEEN FOR FOLLOW UP ASSESSMENT PERTAINING TO COCCYX HEALING STAGE 4 PRESSURE INJURY. MEASURES TODAY 2.5 X 1.0 X 1.2 CM. CONTAINS PINK GRANULATION TISSUE IN THE WOUND BED. NO PERIWOUND REDNESS, WARMTH, OR INDURATION WOUND CARE PROVIDED PRESCRIBED. WILL CONTINUE SAME POT SINCE SIGNIFICANT IMPROVEMENT OVER THE PAST WEEK
[2021-02-04 16:08] VITALS: BP 136/68
--- NOTE | 2021-02-04 19:36 | NUR ---
I ASSUMED CARE OF THE PATIENT AT 0700. HE IS ALERT AND ORIENTED X4 AND IS UP WITH ASSIST OF ONE AND A WALKER. BED IS IN THE LOW LOCKED POSITION AND CALL LIGHT IS IN REACH. HOURLY ROUNDING IS COMPLETED AND PATIENT NEEDS ARE MET. PAIN IS PARTIALLY MANAGED WITH PRN MEDS. ISOLATION IS MAINTAINED AND BLOOD GLUCOSE IS MONITORED AND MANAGED. PATIENT STATUS IS CHANGED TO MED/SURG AND HE IS TRANSFERED TO [facility]. REPORT CALLED TO [facility] AND HE IS TRANSPORTED DOWN WITH [facility].
[2021-02-04 20:00] VITALS: BP 138/66
--- NOTE | 2021-02-05 04:09 | NUR ---
PT TRANSFERRED FROM [facility] AT 1940. A&O, VSS ON 4L, BIPAP HS. MEDS GIVEN ORDERED. PAIN MANAGED WITH OXY IR. DRESSING INTACT. PT ON CLEAR LIQUIDS SINCE MIDNIGHT THEN WILL BE NPO AT 7AM FOR POSSIBLE PROCEDURE. CALL LIGHT WITHIN REACH. WILL CONTINUE TO MONITOR.
[2021-02-05 06:48] LABS: APTT 21.2 Seconds (25.0-31.3); INR 1.1; PROTIME 11.2 Seconds (9.20-11.50)
[2021-02-05 07:02] LABS: CALCIUM 8.6 mg/dL (8.5-10.1); CREATININE 1.6 mg/dL (0.6-1.3); POTASSIUM 4.9 mmol/L (3.5-5.1)
[2021-02-05 08:00] VITALS: BP 137/62
--- NOTE | 2021-02-05 08:43 | NUR ---
I have reviewed the documentation by SAGE SIMMONS from 02/02/21 to 02/05/21 and I concur with it. ROLO DEWITT
--- NOTE | 2021-02-05 15:17 | NUR ---
Pt down from tele. No weekend dc planned. Plan [facility] at dc, waiting on pulm to put order on front of Pt's chart. Goal is home with , resume [facility] at hi.
[2021-02-05 16:00] VITALS: BP 129/62
--- NOTE | 2021-02-05 18:38 | NUR ---
ASSUMED CARE OF PT AT 1500. REPORT RECEIVED. PT SLEEPING IN BARIATRIC BED AT THIS TIME. PAIN MED GIVEN X 1 FOR BACK PAIN WITH RELIEF. CALL LIGHT WITHIN REACH. WOUND CARE NURSE INTO SEE PATIENT THIS AFTERNOON. WILL CONTINUE TO MONITOR.
[2021-02-05 20:30] VITALS: BP 116/52
--- NOTE | 2021-02-06 07:31 | NUR ---
PATIENT SLEPT MOST OF THE NIGHT. MIDLINE REMAINS IN PLACE TO DAWNA. PATIENT WAS GIVEN PAIN MEDICINE ONCE THIS SHIFT. PATIENT WORE BIPAP MOST OF THE NIGHT. WILL CONTINUE TO MONITOR.
[2021-02-06 07:48] VITALS: BP 122/61
[2021-02-06 09:34] LABS: CALCIUM 8.6 mg/dL (8.5-10.1); CREATININE 1.3 mg/dL (0.6-1.3)
[2021-02-06 16:00] VITALS: BP 119/48
--- NOTE | 2021-02-06 18:37 | NUR ---
PATIENT HAS REMAINED A&OX4, PLEASANT AND COOPERATIVE WITH CARES THIS SHIFT. PATIENT REQUIRED PRN PAIN MEDICATION X1 DURING THIS SHIFT. MEDICATIONS AND INSULIN ADMINISTERED ORDERED. CALL LIGHT AND FREQUENTLY USED ITEMS WITHIN REACH.
[2021-02-06 21:30] VITALS: BP 114/52
--- NOTE | 2021-02-07 07:35 | NUR ---
PATIENT SLEPT MOST OF THE NIGHT. PATIENT WAS GIVEN PAIN MEDICINE TWICE THIS SHIFT. PATIENT WORE HIS BIPAP MOST OF THE NIGHT. WILL CONTINUE TO MONITOR.
[2021-02-07 08:28] LABS: HEMATOCRIT 34.4 % (42.0-52.0); HEMOGLOBIN 11.3 gm/dL (14.0-18.0); MCH 27.3 pg (26.0-34.0); MCHC 32.9 g/dL (28.0-37.0); MPV 8.3 fl. (7.2-11.1); NUCLEATED RBCS 0 /100WBC; PLATELET COUNT* 284 thou/uL (150-400); RBC 4.14 mil/uL (4.50-6.00); RDW-CV 14.8 % (10.5-14.5); WBC 15.9 thou/uL (4.0-11.0)
[2021-02-07 08:53] LABS: CALCIUM 8.6 mg/dL (8.5-10.1); CREATININE 1.4 mg/dL (0.6-1.3); MAGNESIUM 2.1 mg/dL (1.8-2.4); POTASSIUM 4.5 mmol/L (3.5-5.1)
[2021-02-07 12:20] LABS: ABSOLUTE LYMPHOCYTES 0.5 thou/uL (0.8-5.3); ABSOLUTE MONOCYTES 0.5 thou/uL (0.0-1.2); ABSOLUTE NEUTROPHILS 14.9 thou/uL (1.6-8.1); PLATELET ESTIMATE ADEQUATE
[2021-02-07 16:13] VITALS: BP 141/60
--- NOTE | 2021-02-07 16:59 | NUR ---
PT REMAINED ALERT AND ORIENTED. PT ANXIOUS ABOUT BEING IN HOSPITAL AND BRONCH TOMORROW. ANXIETY MEDS GIVEN. TALAT UPDATE. FALL RISK PRECAUTIONS IN PLACE. WOUND CHANGED. HOURLY ROUNDING COMPLETED.
[2021-02-07 20:16] VITALS: BP 133/57
[2021-02-08 04:25] LABS: ABSOLUTE LYMPHOCYTES 0.9 thou/uL (0.8-5.3); ABSOLUTE MONOCYTES 0.4 thou/uL (0.0-1.2); ABSOLUTE NEUTROPHILS 12.8 thou/uL (1.6-8.1); BASOPHILS 0.1 %; HEMATOCRIT 33.1 % (42.0-52.0); HEMOGLOBIN 10.9 gm/dL (14.0-18.0); LYMPHOCYTES 6.5 %; MCH 27.6 pg (26.0-34.0); MCHC 32.9 g/dL (28.0-37.0); MCV 83.9 fL (80.0-100.0); MONOCYTES 2.6 %; MPV 8.4 fl. (7.2-11.1); NUCLEATED RBCS 0 /100WBC; PLATELET COUNT* 266 thou/uL (150-400); POLYS 90.8 %; RBC 3.95 mil/uL (4.50-6.00); RDW-CV 14.4 % (10.5-14.5); WBC 14.1 thou/uL (4.0-11.0)
[2021-02-08 04:35] LABS: APTT 21.8 Seconds (25.0-31.3); PROTIME 10.9 Seconds (9.20-11.50)
[2021-02-08 04:43] LABS: ALBUMIN 2.4 g/dL (3.4-5.0); CALCIUM 8.5 mg/dL (8.5-10.1); CREATININE 1.7 mg/dL (0.6-1.3); MAGNESIUM 2.1 mg/dL (1.8-2.4); POTASSIUM 4.8 mmol/L (3.5-5.1); TOTAL BILIRUBIN 0.2 mg/dL (<0.1-1.0); TOTAL PROTEIN 6.3 g/dL (6.4-8.2)
--- NOTE | 2021-02-08 06:14 | NUR ---
PATIENT SLEPT MOST OF THE NIGHT. PATIENT HAS BEEN NPO SINCE MIDNIGHT FOR A PROCEDURE TODAY. WILL CONTINUE TO MONITOR.
[2021-02-08 07:50] VITALS: BP 122/49
--- NOTE | 2021-02-08 14:00 | NUR ---
CM attempting to fax [facility] referral to [facility], continue to have issues with fax machine, Ella from [facility] may come and picket [employer]. Goal is home at [place], resume . Therapies to see
[2021-02-08 15:40] VITALS: BP 125/51
[2021-02-08 21:50] VITALS: BP 139/66
--- NOTE | 2021-02-09 04:49 | NUR ---
PATIENT HAS REMAINED ALERT AND ORIENTED X 4 THROUGHOUT THE SHIFT AND RESTING QUIETLY ON HOURLY ROUNDS. ASSISTED WITH TURNS TOLERATED (ON SPECIALTY BED) WITH BIPAP ON OVERNIGHT. MEDS/ABX PER ORDER. VITAL SIGNS STABLE. AFEBRILE. FALL PRECAUTIONS IN PLACE. MEDICATED X 1 FOR PAIN AND ANXIETY TO GOOD EFFECT. CONTINUE TO MONITOR.
[2021-02-09 07:20] VITALS: BP 129/49
--- NOTE | 2021-02-09 11:16 | NUR ---
WOUND NURSE: PATIENT SEEN FOR FOLLOW UP ASSESSMENT PERTAINING TO COCCYGEAL WOUND CURRENTLY MEASURING 2.5 X 1.0 X 1.2 CM. PRESENTS WITH PINK AND RED GRANULATION TISSUE. MODERATE AMOUNT OF SEROUSANGUINOUS DRAINAGE ON THE OLD DRESSING. NO ACTIVE DRAINAGE FROM THE WOUND. NO PERIWOUND REDNESS, WARMTH, OR INDURATION. NO ODOR. DRESSING CHANGED PRESCRIBED. PATIENT REINSTRUCTED ON MEASURES TO PROMOTE HEALING AND PREVENT COMPLICATIONS. PATIENT'S HERE, BUT STATE THEY UNDERSTAND. PATIENT WAS ABLE TO STAND STEADY AT THE BEDSIDE WITH SUPERVISION AT TIME OF THIS ASSESSMENT. INSIGNIFICANT CHANGE IN THIS WOUND FROM LAST WEEK; HOWEVER, THIS WOUND WAS INITIALLY COVIDE 19 RELATED, I.E. UNAVOIDABLE.
--- NOTE | 2021-02-09 11:57 | NUR ---
Pt has a trilogy at home since January 2019. Pulm recommending ARU, Dr to place consult. Bronch yesterday, pulm following. Plan ARU vs HH with [facility]
--- NOTE | 2021-02-09 12:10 | NUR ---
THIS RECTIFYING ATTENDANT IS IN AGREEMENT WITH DOCUMENTED TREATMENT NOTE BY GIA CORADO FOR THIS DAY. ENMA FARNSWORTHT
--- NOTE | 2021-02-09 17:34 | NUR ---
PT REMAINED ALERT AND ORIENTED. PICS TAKEN AND IN CHART. ACCU CHECKS COMPLETED. FALL RISK PRECAUTIONS IN PLACE. HOURLY ROUNDING COMPLETED.
[2021-02-09 19:36] VITALS: BP 115/52
--- NOTE | 2021-02-10 06:30 | NUR ---
PT A&OX4, VSS ON 3L NC - BIPAP WHILE SLEEPING. BARIATRIC BED. IV SALINE LOCKED. PRN PAIN MED REQUESTED AND GIVEN ORDERED. PT UP WITH ASSIST, GB AND WALKER. PT REQUESTED COCCYX DRSG BE CHANGED FROM 4X4 FOAM BOARDER TO SACRAL DRSG DO TO DISCOMFORT; DRSG CHANGED AT 0500. PT SLEPT WELL. ASSESSMENTS AND HOURLY ROUNDINGS COMPLETE, WILL CONTINUE TO MONITOR.
[2021-02-10 07:05] VITALS: BP 139/65
[2021-02-10 10:20] VITALS: BP 139/65
[2021-02-10] MEDS ORDERED: FLAGYL500 M1 PO (11:19)
[2021-02-10] MEDS ORDERED: FLUCONAZOLE 10100 MG PO (11:19)
[2021-02-10] MEDS ORDERED: NEURONTIN 300M300 M2 PO (11:19)
[2021-02-10 11:27] LABS: ABSOLUTE LYMPHOCYTES 0.8 thou/uL (0.8-5.3); ABSOLUTE MONOCYTES 0.4 thou/uL (0.0-1.2); ABSOLUTE NEUTROPHILS 12.1 thou/uL (1.6-8.1); BASOPHILS 0.2 %; HEMATOCRIT 35.4 % (42.0-52.0); HEMOGLOBIN 11.7 gm/dL (14.0-18.0); MCH 27.9 pg (26.0-34.0); MCV 84.4 fL (80.0-100.0); MONOCYTES 3.2 %; MPV 8.1 fl. (7.2-11.1); NUCLEATED RBCS 0 /100WBC; PLATELET COUNT* 251 thou/uL (150-400); POLYS 90.6 %; RBC 4.19 mil/uL (4.50-6.00); RDW-CV 14.8 % (10.5-14.5); WBC 13.4 thou/uL (4.0-11.0)
[2021-02-10 11:35] LABS: CREATININE 1.4 mg/dL (0.6-1.3); MAGNESIUM 1.8 mg/dL (1.8-2.4); POTASSIUM 4.6 mmol/L (3.5-5.1)
[2021-02-10 11:48] VITALS: BP 139/65
--- NOTE | 2021-02-10 11:51 | NUR ---
Anticipate dc to home today. CM to fax final orders to [facility] outpt PT. CM updated Pt and of cost of Eliquis, which will be $245.04, Pt cannot afford. CM asked nurse to contact Dr Younger to discuss options for a different blood thinner, nurse stated that she will prior to dc. in agreement with POC.
--- NOTE | 2021-02-10 11:53 | NUR ---
Pt declining ARU, Pt wants to dc home with [facility]. CM spoke with Pt's , is in agreement. [facility] f:[phone]
[2021-02-10] MEDS ORDERED: CEFDINIR300 MG PO (12:38)
--- NOTE | 2021-02-10 13:25 | NUR ---
PT GIVEN DISCHARGE INFORMATION, CARE NOTES, AND PRESCRIPTIONS SENT TO PHARMACY. PICC REMOVED. PT BELONGINGS GATHERED. PT LEF VIA WHEELCHAIR TO HOME WITH HOME HEALTH.
--- NOTE | 2021-02-11 16:06 | PATH ---
[address] [address] PATHOLOGY RPT PROCEDURE Name: STEPHANIE NARANJO Room: [address]#: [id number] Admission: 01/27/21 Date of : 47 Discharge: 02/10/21 Report #: [id number] Path Case #: [id number] Note [facility] Accession Number: [id number] TESTS RESULT FLAG UNITS REF RANGE LAB Clinician Provided Cytology Information No. of containers..01 Other (Miscellaneous) Source: CECELIA WASH DIAGNOSIS: 02 R MAINSTEM WASH NEGATIVE FOR MALIGNANT CELLS. ABUNDANT SQUAMOUS CELLS AND ACUTE INFLAMMATION, AND FEW BRONCHIAL EPITHELIAL CELLS AND PULMONARY MACROPHAGES (DUST CELLS) ARE PRESENT. SILVER METHENAMINE STAINED SMEARS ARE NEGATIVE FOR PNEUMOCYSTIS JIROVECI. FEW FUNGAL ORGANISMS SUGGESTING ELIDA SPECIES ARE PRESENT. Signed out by: 02 Gene Davis MD, Pathologist NPI- [id number] Performed by: Myles Jean, Data Processing Equipment Repairer ([facility]) Gross description: 01 15ML, CLOUDY WALSH, 1 TP 1 PCP /LCS 02/10/2021 0217 Local FLAG LEGEND: L-Low Normal,H-High Normal,LL-Alert Low,HH-Alert High <-Panic Low,>-Panic High,A-Abnormal,AA-Critical Abnormal Performed at: [address] [place] [address] Crow Rondon MD, [address] [place] [address] [address] [place] [address] Gene Davis MD, Specimen Comment: A courtesy copy of this report has been sent to [phone], [phone] Specimen Comment: [phone] Specimen Comment: Report sent to / DR FERRARO Specimen Comment: A duplicate report has been generated due to demographic updates. Performed at: [address], [place], [place] [id number] MD Crow Rondon MD Phone: [phone]
--- NOTE | 2021-02-11 16:06 | PATH ---
[address] [address] PATHOLOGY RPT PROCEDURE Name: STEPHANIE NARANJO Room: [address]#: [id number] Admission: 01/27/21 Date of : 47 Discharge: 02/10/21 Report #: [id number] Path Case #: [id number] Note [facility] Accession Number: [id number] TESTS RESULT FLAG UNITS REF RANGE LAB Clinician Provided Cytology Information No. of containers..01 Other (Miscellaneous) Source: LMS WASH DIAGNOSIS: 02 L MAINSTEM WASH NEGATIVE FOR MALIGNANT CELLS. MANY SQUAMOUS CELLS AND ACUTE INFLAMMATORY CELLS AND FEW BRONCHIAL EPITHELIAL CELLS AND PULMONARY MACROPHAGES (DUST CELLS) ARE PRESENT. SILVER METHENAMINE STAINED SMEARS ARE NEGATIVE FOR PNEUMOCYSTIS JIROVECI. FEW FUNGAL ELEMENTS SUGGESTING ELIDA SPECIES ARE PRESENT. Signed out by: 02 Gene Davis MD, Pathologist NPI- [id number] Performed by: Myles Jean, Second Chef ([facility]) Gross description: 01 10ML, CLOUDY WALSH, 1 TP 1 PCP /LCS 02/10/2021 0226 Local FLAG LEGEND: L-Low Normal,H-High Normal,LL-Alert Low,HH-Alert High <-Panic Low,>-Panic High,A-Abnormal,AA-Critical Abnormal Performed at: [address] [place] [address] Crow Rondon MD, [address] [place] [address] [address] [place] [address] Gene Davis MD, Specimen Comment: A courtesy copy of this report has been sent to [phone] Specimen Comment: Report sent to Specimen Comment: A duplicate report has been generated due to demographic updates. Performed at: [address], [place], [place] [id number] MD Crow Rondon MD Phone: [phone]
--- NOTE | 2021-02-11 21:41 | PROC ---
[address] [address] PROCEDURE REPORT Name: STEPHANIE NARANJO Room: [address] IN .R.#: [id number] Admission: 01/27/21 Attend Phys: Barry Napier MD Discharge: 02/10/21 Date of : 47 Report #: [id number] THIS REPORT FOR: cc: James Estrada MD, Anthony MD Pervez,Ridge CASTANEDA ~ DOC #: [id number] Ridge Lemus MD DATE OF PROCEDURE: 02/08/2021 INDICATIONS FOR PROCEDURE: Persistent mucus plugging. POSTPROCEDURE DIAGNOSES There is a severe thrush in the larynx and vocal cords, some extending into the trachea. Large amount of thick purulent secretions throughout the bronchial tree, partially occluding the trachea as well as the right and left mainstem bronchus and other parts of the bronchial tree. CONSENT: Informed consent was obtained from the patient. SEDATION: In addition to various amounts of local anesthetic solution as described, we also used 1 mg of Versed and 50 of fentanyl. DESCRIPTION OF PROCEDURE: Informed consent was obtained and the patient was transferred to the bronchoscopy suite where the respiratory therapist proceeded to repairing the upper airway with local anesthetic solution. Considering that the patient had been on Eliquis, I decided to proceed with the procedure through the patient's mouth. He was sedated as above and then after placing a tooth guard, the bronchoscope was advanced to visualize the vocal cords. There was severe thrush noted, which is involving the vocal cords and the larynx. There is some thrush extending into the trachea as well. We instilled 8 mL of 4% Xylocaine onto the vocal cords after which cough reflex was suppressed. We now proceeded with advancing the bronchoscope into the trachea, instilled another 3 mL of 2% Xylocaine in the trachea and 2 mL each in the right as well as left mainstem. There was a large amount of thick yellow secretion noted in the trachea, which was partially occluding the tracheal lumen. I placed a trap and proceeded to collecting the secretions in the trap, the trap that was labeled as left mainstem includes thick secretions from the trachea as well as the left mainstem and the entire left bronchial tree. There was partial occlusion of the right as well as left main stem bronchus noted. Large amount of secretions were also noted more peripherally, causing a partial obstruction of bronchi leading to all five lobes. I continued to perform suction and remove the secretions, while these were thick, I fact was able to suction them easily and did not need to administer Mucomyst. Small amounts of saline was administered, a total of 40 mL in both lungs. I collected around 25 mL of secretions in the trap from the trachea and left mainstem after which I removed the [place] [address] PROCEDURE REPORT Name: STEPHANIE NARANJO Vern Room: [address]#: [id number] Admission: 01/27/21 Attend Phys: Barry Napier MD Discharge: 02/10/21 Date of : 47 Report #: [id number] perform suction. I estimate that I removed another 70 or 80 mL of thick yellow secretions after the trap had been removed from the left bronchial tree. Subsequently, we placed another trap. I now began collecting secretions and collected 20 mL of thick yellow secretions from the right mainstem after which again the trap was removed and I estimate that I suctioned out another 40 or 50 mL of thick yellow secretions from throughout the right bronchial tree. Most of the secretions were suctioned out, a small amount was still remaining at the end of the procedure. There are no endobronchial lesions. There was mild erythema of the mucosa noted throughout. There are no other additional findings. The patient remained stable throughout the procedure and did not have any complications as a result of this procedure. The specimens collected had been sent to the laboratory and will be followed up. MD OMI Tapia/B[facility] <ELECTRONICALLY SIGNED> By: Ridge Lemus MD 02/11/21 [id number] Lemus MD /nt
--- NOTE | 2021-02-12 09:15 | NUR ---
I have reviewed the documentation by SAGE SIMMONS from 02/08/21 to 02/12/21 and I concur with it. ROLO DEWITT
== END 2021-02-10 13:26 | disposition home health service (06) | DRG 871 ==
LOC: M.ERS 14:03 → M.ORTHSURG 14:58 → M.TBA-ER 14:58 → M.ORTHSURG 14:58 → M.2W 14:58 → M.ORTHSURG 02-04 19:40
PROVIDERS: Family Medicine; Internal Medicine; Internal Medicine Critical Care Medicine; Surgery; ADMIT Internal Medicine; ATTEND Internal Medicine
PROC: 5A09357 Assistance with Respiratory Ventilation, Less than 24 Consecutive Hours, Continuous Positive Airway Pressure (ICD-10-PCS; 2021-01-27)
PROC: 5A09357 Assistance with Respiratory Ventilation, Less than 24 Consecutive Hours, Continuous Positive Airway Pressure (ICD-10-PCS; 2021-01-28)
PROC: 5A09357 Assistance with Respiratory Ventilation, Less than 24 Consecutive Hours, Continuous Positive Airway Pressure (ICD-10-PCS; 2021-01-29)
PROC: 5A09357 Assistance with Respiratory Ventilation, Less than 24 Consecutive Hours, Continuous Positive Airway Pressure (ICD-10-PCS; 2021-01-30)
PROC: 5A09357 Assistance with Respiratory Ventilation, Less than 24 Consecutive Hours, Continuous Positive Airway Pressure (ICD-10-PCS; 2021-01-31)
PROC: 5A09357 Assistance with Respiratory Ventilation, Less than 24 Consecutive Hours, Continuous Positive Airway Pressure (ICD-10-PCS; 2021-02-01)
PROC: B54MZZA Ultrasonography of Right Upper Extremity Veins, Guidance (ICD-10-PCS; 2021-02-02)
PROC: 05HD33Z Insertion of Infusion Device into Right Cephalic Vein, Percutaneous Approach (ICD-10-PCS; 2021-02-02)
PROC: 5A09357 Assistance with Respiratory Ventilation, Less than 24 Consecutive Hours, Continuous Positive Airway Pressure (ICD-10-PCS; 2021-02-02)
PROC: 5A09357 Assistance with Respiratory Ventilation, Less than 24 Consecutive Hours, Continuous Positive Airway Pressure (ICD-10-PCS; 2021-02-03)
PROC: 5A09357 Assistance with Respiratory Ventilation, Less than 24 Consecutive Hours, Continuous Positive Airway Pressure (ICD-10-PCS; 2021-02-05)
PROC: 5A09357 Assistance with Respiratory Ventilation, Less than 24 Consecutive Hours, Continuous Positive Airway Pressure (ICD-10-PCS; 2021-02-06)
PROC: 5A09357 Assistance with Respiratory Ventilation, Less than 24 Consecutive Hours, Continuous Positive Airway Pressure (ICD-10-PCS; 2021-02-07)
PROC: 0B938ZZ Drainage of Right Main Bronchus, Via Natural or Artificial Opening Endoscopic (ICD-10-PCS; principal; 2021-02-08)
PROC: 0B978ZZ Drainage of Left Main Bronchus, Via Natural or Artificial Opening Endoscopic (ICD-10-PCS; principal; 2021-02-08)
PROC: 5A09357 Assistance with Respiratory Ventilation, Less than 24 Consecutive Hours, Continuous Positive Airway Pressure (ICD-10-PCS; principal; 2021-02-08)
PROC: 5A09357 Assistance with Respiratory Ventilation, Less than 24 Consecutive Hours, Continuous Positive Airway Pressure (ICD-10-PCS; 2021-02-09)
PROC: 5A09357 Assistance with Respiratory Ventilation, Less than 24 Consecutive Hours, Continuous Positive Airway Pressure (ICD-10-PCS; 2021-02-10)
PROC: 5A0935A Assistance with Respiratory Ventilation, Less than 24 Consecutive Hours, High Flow/Velocity Cannula (ICD-10-PCS; 2021-02-10)
DX: A41.9 Sepsis, unspecified organism (principal); L89.154 Pressure ulcer of sacral region, stage 4; J69.0 Pneumonitis due to inhalation of food and vomit; N17.0 Acute kidney failure with tubular necrosis; J15.6 Pneumonia due to other Gram-negative bacteria; J96.21 Acute and chronic respiratory failure with hypoxia; G92 Toxic encephalopathy; S52.614A Nondisplaced fracture of right ulna styloid process, initial encounter for closed fracture; Z68.43 Body mass index [BMI] 50.0-59.9, adult; E66.2 Morbid (severe) obesity with alveolar hypoventilation; J44.1 Chronic obstructive pulmonary disease with (acute) exacerbation; J44.0 Chronic obstructive pulmonary disease with (acute) lower respiratory infection; I13.0 Hypertensive heart and chronic kidney disease with heart failure and stage 1 through stage 4 chronic kidney disease, or unspecified chronic kidney disease; I50.30 Unspecified diastolic (congestive) heart failure; E11.22 Type 2 diabetes mellitus with diabetic chronic kidney disease; N18.9 Chronic kidney disease, unspecified; Z20.822 Contact with and (suspected) exposure to COVID-19; Z96.653 Presence of artificial knee joint, bilateral; Z96.612 Presence of left artificial shoulder joint; Z96.611 Presence of right artificial shoulder joint; Z86.711 Personal history of pulmonary embolism; Z86.16 Personal history of COVID-19; Z79.4 Long term (current) use of insulin; Z79.899 Other long term (current) drug therapy; Z88.1 Allergy status to other antibiotic agents; Z91.010 Allergy to peanuts; Z88.0 Allergy status to penicillin; Z88.8 Allergy status to other drugs, medicaments and biological substances; Z91.048 Other nonmedicinal substance allergy status; Z87.891 Personal history of nicotine dependence; W18.39XA Other fall on same level, initial encounter; Y93.89 Activity, other specified; Y92.89 Other specified places as the place of occurrence of the external cause; Y99.8 Other external cause status

== ENCOUNTER → 2021-01-27 | Outpatient (CLI) | payer MEDICARE, OTHER ==
[~2021-01-27] MED LIST changes: +NORCO5 PO
== END ==
LOC: M.WC 09:41
PROVIDERS: ATTEND Surgery
DX: E11.622 Type 2 diabetes mellitus with other skin ulcer (principal); L89.154 Pressure ulcer of sacral region, stage 4; L98.492 Non-pressure chronic ulcer of skin of other sites with fat layer exposed; E11.40 Type 2 diabetes mellitus with diabetic neuropathy, unspecified; E66.01 Morbid (severe) obesity due to excess calories; G47.30 Sleep apnea, unspecified; J44.9 Chronic obstructive pulmonary disease, unspecified; K21.9 Gastro-esophageal reflux disease without esophagitis; Z86.711 Personal history of pulmonary embolism; Z86.16 Personal history of COVID-19; Z87.891 Personal history of nicotine dependence; Z79.4 Long term (current) use of insulin; Z68.41 Body mass index [BMI] 40.0-44.9, adult

== ENCOUNTER 2021-02-18 13:09 | Inpatient (IN) | payer OTHER ==
[~2021-02-18] VITALS: Ht 180.3 cm; Wt 136.1 kg
[~2021-02-18 13:09] MED LIST changes: +CEFDINIR300 MG PO
[2021-02-18 13:56] LABS: ABSOLUTE BASOPHILS 0.1 thou/uL (0.0-0.2); ABSOLUTE EOSINOPHILS 0.2 thou/uL (0.0-0.7); ABSOLUTE MONOCYTES 0.5 thou/uL (0.0-1.2); ABSOLUTE NEUTROPHILS 5.9 thou/uL (1.6-8.1); EOSINOPHILS 2.7 %; HEMATOCRIT 32.8 % (42.0-52.0); HEMOGLOBIN 11.2 gm/dL (14.0-18.0); LYMPHOCYTES 13.2 %; MCH 28.5 pg (26.0-34.0); MCHC 34.2 g/dL (28.0-37.0); MCV 83.3 fL (80.0-100.0); MPV 8.1 fl. (7.2-11.1); NUCLEATED RBCS 0 /100WBC; PLATELET COUNT* 165 thou/uL (150-400); POLYS 77.1 %; RBC 3.94 mil/uL (4.50-6.00); RDW-CV 15.4 % (10.5-14.5); WBC 7.6 thou/uL (4.0-11.0)
[2021-02-18 14:09] LABS: CALCIUM 9.2 mg/dL (8.5-10.1); CREATININE 1.7 mg/dL (0.6-1.3); POTASSIUM 4.2 mmol/L (3.5-5.1)
[2021-02-18 14:22] LABS: ALBUMIN 2.5 g/dL (3.4-5.0); TOTAL BILIRUBIN 0.4 mg/dL (<0.1-1.0); TOTAL PROTEIN 7.4 g/dL (6.4-8.2)
--- NOTE | 2021-02-18 15:24 | EKG ---
[place] [address] ELECTROCARDIOGRAM REPORT Name: STEPHANIE NARANJO Room: [place] [address] ADM IN [facility].#: [id number] Admission: 02/18/21 Attend Phys: Mike Dugan Discharge: Date of : 47 Date of Service: 02/18/21 1329 Report #: [id number] THIS REPORT FOR: //name// [facility] ED Test Date: 2021-02-18 Test Time: 13:29:02 Pat Name: STEPHANIE NARANJO Department: Room: [facility] Gender: M Copyholder: LAURENCE : 1945 Requested By: Jude Alberto Order Number: [id number] MD: Jason Mora Measurements Intervals [place] Rate: 117 P: 48 OR: 178 QRS: 1 QRSD: 90 T: 58 QT: 331 QTc: 462 Interpretive Statements Sinus tachycardia Low voltage, precordial leads Consider anterior infarct Compared to ECG 01/27/2021 14:23:03 No significant changes Electronically Signed On 02-18-2021 15:24:21 CDT by Jason Mora [email or web address] <ELECTRONICALLY SIGNED> By: Jason Mora MD, [facility] 02/18/21 1524 1329 1329 Jason Mora MD, [facility] /EPI
[2021-02-18 18:30] VITALS: BP 121/61
[2021-02-18 20:09] VITALS: BP 119/48
[2021-02-19 00:34] VITALS: BP 116/58
[2021-02-19 04:19] VITALS: BP 115/50
[2021-02-19 05:45] LABS: HEMATOCRIT 31.5 % (42.0-52.0); HEMOGLOBIN 10.5 gm/dL (14.0-18.0); MCH 28.4 pg (26.0-34.0); MCHC 33.5 g/dL (28.0-37.0); MCV 84.7 fL (80.0-100.0); MPV 8.5 fl. (7.2-11.1); RBC 3.71 mil/uL (4.50-6.00); WBC 4.6 thou/uL (4.0-11.0)
[2021-02-19 06:01] LABS: CALCIUM 9.3 mg/dL (8.5-10.1); CREATININE 1.8 mg/dL (0.6-1.3); POTASSIUM 4.5 mmol/L (3.5-5.1)
[2021-02-19 08:00] VITALS: BP 159/68
[2021-02-19 17:42] VITALS: BP 136/64
[2021-02-19 20:00] VITALS: BP 133/56
[2021-02-19 23:52] VITALS: BP 109/70
[2021-02-20 04:06] VITALS: BP 128/66
[2021-02-20 05:23] LABS: HEMATOCRIT 30.9 % (42.0-52.0); HEMOGLOBIN 10.6 gm/dL (14.0-18.0); MCH 28.4 pg (26.0-34.0); MCHC 34.3 g/dL (28.0-37.0); MCV 82.9 fL (80.0-100.0); MPV 8.7 fl. (7.2-11.1); RBC 3.73 mil/uL (4.50-6.00); RDW-CV 15.8 % (10.5-14.5); WBC 11.6 thou/uL (4.0-11.0)
[2021-02-20 05:52] LABS: CALCIUM 9.2 mg/dL (8.5-10.1); CREATININE 1.6 mg/dL (0.6-1.3); POTASSIUM 4.3 mmol/L (3.5-5.1)
[2021-02-20 08:00] VITALS: BP 121/43
[2021-02-20 12:00] VITALS: BP 133/61
[2021-02-20 17:35] VITALS: BP 127/78
[2021-02-21 00:08] VITALS: BP 141/56
[2021-02-21 03:42] VITALS: BP 123/62
[2021-02-21 08:00] VITALS: BP 104/32
[2021-02-21 12:00] VITALS: BP 110/46
[2021-02-21 16:00] VITALS: BP 140/102
[2021-02-21 17:55] LABS: URINE BILIRUBIN NEGATIVE (Negative); URINE BLOOD NEGATIVE (Negative); URINE CLARITY CLEAR; URINE COLOR YELLOW; URINE GLUCOSE-RANDOM 3+ (Negative); URINE KETONES NEGATIVE (Negative); URINE LEUKOCYTES-REFLEX NEGATIVE (Negative); URINE NITRITE-REFLEX NEGATIVE (Negative); URINE PROTEIN NEGATIVE (Negative); URINE UROBILINOGEN 0.2 E.U./dl (0.2-1.0)
[2021-02-21 22:00] VITALS: BP 128/60
[2021-02-22 04:21] VITALS: BP 149/74
[2021-02-22 08:05] VITALS: BP 141/64
[2021-02-22 12:00] VITALS: BP 128/68
[2021-02-22 16:00] VITALS: BP 142/63
[2021-02-22 20:00] VITALS: BP 145/68
[2021-02-23 08:20] VITALS: BP 133/59
[2021-02-23] MEDS ORDERED: LEVOFLOXACIN750 MG PO (09:06)
[2021-02-23] MEDS ORDERED: PREDNISONE 10 M10 M1 PO (09:06)
[2021-02-23] MEDS ORDERED: LASIX 40 MG TAB40 M1 PO (09:06)
[2021-02-23 13:27] VITALS: BP 145/68
[2021-02-23 13:37] VITALS: BP 145/68
[2021-02-23 14:18] VITALS: BP 145/68
== END 2021-02-23 14:50 | disposition home health service (06) | DRG 291 ==
LOC: M.ERS 13:09 → M.2W 14:38 → M.TBA-ER 14:38 → M.2W 20:05
PROVIDERS: Family Medicine; ADMIT Internal Medicine; ATTEND Internal Medicine
PROC: 5A09357 Assistance with Respiratory Ventilation, Less than 24 Consecutive Hours, Continuous Positive Airway Pressure (ICD-10-PCS; principal; 2021-02-19)
PROC: 5A09357 Assistance with Respiratory Ventilation, Less than 24 Consecutive Hours, Continuous Positive Airway Pressure (ICD-10-PCS; 2021-02-20)
PROC: 5A09357 Assistance with Respiratory Ventilation, Less than 24 Consecutive Hours, Continuous Positive Airway Pressure (ICD-10-PCS; 2021-02-21)
PROC: 5A09357 Assistance with Respiratory Ventilation, Less than 24 Consecutive Hours, Continuous Positive Airway Pressure (ICD-10-PCS; 2021-02-22)
DX: I13.0 Hypertensive heart and chronic kidney disease with heart failure and stage 1 through stage 4 chronic kidney disease, or unspecified chronic kidney disease (principal); N17.0 Acute kidney failure with tubular necrosis; I50.33 Acute on chronic diastolic (congestive) heart failure; J18.9 Pneumonia, unspecified organism; J44.1 Chronic obstructive pulmonary disease with (acute) exacerbation; J96.11 Chronic respiratory failure with hypoxia; J44.0 Chronic obstructive pulmonary disease with (acute) lower respiratory infection; K21.9 Gastro-esophageal reflux disease without esophagitis; N18.9 Chronic kidney disease, unspecified; G47.33 Obstructive sleep apnea (adult) (pediatric); E11.22 Type 2 diabetes mellitus with diabetic chronic kidney disease; Z96.653 Presence of artificial knee joint, bilateral; Z96.612 Presence of left artificial shoulder joint; Z20.822 Contact with and (suspected) exposure to COVID-19; Z96.611 Presence of right artificial shoulder joint; Z86.16 Personal history of COVID-19; Z86.711 Personal history of pulmonary embolism; Z79.4 Long term (current) use of insulin; Z79.899 Other long term (current) drug therapy; Z88.1 Allergy status to other antibiotic agents; Z91.010 Allergy to peanuts; Z88.8 Allergy status to other drugs, medicaments and biological substances; Z91.048 Other nonmedicinal substance allergy status

== ENCOUNTER → 2021-03-03 | Outpatient (CLI) | payer MEDICARE, OTHER ==
[~2021-03-03] MED LIST changes: +LASIX 40 MG TAB40 M1 PO; +LEVOFLOXACIN750 MG PO
== END ==
LOC: M.WC 08:00
PROVIDERS: ATTEND Surgery
DX: E11.622 Type 2 diabetes mellitus with other skin ulcer (principal); L89.154 Pressure ulcer of sacral region, stage 4; L98.492 Non-pressure chronic ulcer of skin of other sites with fat layer exposed; E11.40 Type 2 diabetes mellitus with diabetic neuropathy, unspecified; E66.01 Morbid (severe) obesity due to excess calories; G47.30 Sleep apnea, unspecified; J44.9 Chronic obstructive pulmonary disease, unspecified; K21.9 Gastro-esophageal reflux disease without esophagitis; Z86.711 Personal history of pulmonary embolism; Z86.16 Personal history of COVID-19; Z87.891 Personal history of nicotine dependence; Z79.4 Long term (current) use of insulin; Z68.41 Body mass index [BMI] 40.0-44.9, adult

== ENCOUNTER → 2021-03-10 | Outpatient (CLI) | payer MEDICARE, OTHER | LOC: M.WC 10:17 | PROVIDERS: ATTEND Surgery | DX: E11.622 Type 2 diabetes mellitus with other skin ulcer (principal); L89.154 Pressure ulcer of sacral region, stage 4; L98.492 Non-pressure chronic ulcer of skin of other sites with fat layer exposed; E11.40 Type 2 diabetes mellitus with diabetic neuropathy, unspecified; E66.01 Morbid (severe) obesity due to excess calories; G47.30 Sleep apnea, unspecified; J44.9 Chronic obstructive pulmonary disease, unspecified; K21.9 Gastro-esophageal reflux disease without esophagitis; Z86.711 Personal history of pulmonary embolism; Z86.16 Personal history of COVID-19; Z87.891 Personal history of nicotine dependence; Z79.4 Long term (current) use of insulin; Z68.41 Body mass index [BMI] 40.0-44.9, adult ==

== ENCOUNTER → 2021-03-17 | Outpatient (CLI) | payer MEDICARE, OTHER | LOC: M.WC 10:08 | PROVIDERS: ATTEND Surgery | DX: E11.622 Type 2 diabetes mellitus with other skin ulcer (principal); L89.154 Pressure ulcer of sacral region, stage 4; L98.492 Non-pressure chronic ulcer of skin of other sites with fat layer exposed; E11.40 Type 2 diabetes mellitus with diabetic neuropathy, unspecified; E66.01 Morbid (severe) obesity due to excess calories; G47.30 Sleep apnea, unspecified; J44.9 Chronic obstructive pulmonary disease, unspecified; K21.9 Gastro-esophageal reflux disease without esophagitis; Z86.711 Personal history of pulmonary embolism; Z86.16 Personal history of COVID-19; Z87.891 Personal history of nicotine dependence; Z79.4 Long term (current) use of insulin; Z68.41 Body mass index [BMI] 40.0-44.9, adult ==